=== PATIENT | male | born 2000 | race Caucasian/White ===

== ENCOUNTER 2020-04-04 04:11 | Emergency (ER) | payer BC, SELFPAY ==
--- NOTE | ~2020-04-04 | CT_ITS ---
EXAMINATION: CT abdomen pelvis w con DATE: 04/04/2020 05:47 INDICATION: Epigastric pain TECHNIQUE: Computed tomography (CT) of the abdomen and pelvis was performed with 100 cc Omnipaque 350 intravenous contrast. The dose-length product was 1392.58 mGy-cm. Automated exposure control and ite rative reconstruction technique were employed. COMPARISON: No prior studies for comparison. . FINDINGS: There is a subsolid 5 mm right lower lobe nodule, image 6. Heart size normal. No significan t pleural or pericardial effusion. Study limited by motion artifact. No significant vascular abnormal ity. No lymphadenopathy. Gallstones. No secondary findings to suggest cholecystitis. The liver, spleen, pancreas, adrenal glan ds and kidneys are unremarkable. Nonobstructive bowel gas pattern. Normal appendix. Nonobstructive jaleel wel gas pattern. Mild prominence of the transverse and descending colon, likely due to underdistentio n. No free air or free fluid. Small fat-containing umbilical hernia. No acute osseous abnormality. IMPRESSION: 1. Cholelithiasis. 2: Subsolid 5 mm right lower lobe nodule, likely benign. Follow-up CT chest and 12 months recommended . Reviewed, dictated and finalized at location A. OMS OFFICER IMPRESSION: 1. Cholelithiasis. 2: Subsolid 5 mm right lower lobe nodule, likely benign. Follow-up CT chest and 12 months recommended.
[2020-04-04 04:14] VITALS: BP 133/75; PULSE 87; RESP 20; TEMP 36.5; O2SAT 98
[2020-04-04] MEDS: SODIUM CHLORIDE 0.9% IV 1,000 ML 999 ML IV CONT (04:41)
[2020-04-04] MEDS: ONDANSETRON INJ 4 MG/2 ML VIAL IV PUSH (04:41)
[2020-04-04] MEDS: MORPHINE SULFATE (*CRX) 4 MG/ML INJ IV PUSH (04:41)
[2020-04-04 05:06] LABS: Basophils Absolute Auto 0.1 K/mm3 (0.0-0.1); Basophils Percent Auto 0.4 % (0.2-1.2); Eosinophils Absolute Auto 0.4 K/mm3 (0-0.3); Eosinophils Percent Auto 3.3 % (0-4.4); Hematocrit 43.1 % (42.0-52.0); Hemoglobin 13.8 g/dL (14.0-18.0); Immature Granulocyte Absolute 0.06 K/mm3 (0.00-0.031); Immature Granulocyte Percent A 0.5 % (0-0.5); Lymphocytes Absolute Auto 2.58 K/mm3 (0.9-3.2); Lymphocytes Percent Auto 19.4 % (18.3-44.2); Mean Corpuscular Hemoglobin 26.3 pg (26-34); Mean Corpuscular Volume 82.1 fl (80-100); Mean Platelet Volume 11.1 fl (7.4-10.4); Monocytes Absolute Auto 0.6 K/mm3 (0.1-0.6); Monocytes Percent Auto 4.7 % (2.6-8.5); Neutrophils Absolute Auto 9.5 K/mm3 (1.3-6.7); Neutrophils Percent Auto 71.7 % (45.5-73.1); Platelet Count Result 307 k/mm3 (150-375); Red Blood Count 5.25 M/mm3 (4.6-6.20); Red Cell Distribution Width 13.1 % (11.5-14.5); White Blood Count 13.3 K/mm3 (4.5-10.0)
[2020-04-04 05:13] LABS: Alanine Aminotransferase 32 U/L (4-50); Albumin Level 4.4 g/dL (3.5-5.1); Alkaline Phosphatase 73 U/L (38-126); Anion Gap 10 mmol/L (8-16); Aspartate Amino Transferase 31 U/L (17-59); Bilirubin,Total 0.5 mg/dL (0.2-1.3); Blood Urea Nitrogen 11 mg/dL (9-20); Calcium 9.2 mg/dL (8.4-10.2); Carbon Dioxide 33 mmol/L (22-30); Chloride 98 mmol/L (98-107); Estimated CRCL calculation 142 ml/min; Estimated Glomerular Filt Rate > 60; Glucose 149 mg/dL (75-110); Lipase 36 U/L (23-300); Potassium 3.6 mmol/L (3.4-5.0); Sodium 141 mmol/L (137-145)
--- NOTE | 2020-04-04 06:28 | ED.GENADULT ---
HPI - General Adult General Chief complaint: Back Pain/Injury Stated complaint: back pain Time Seen by Provider: 04/04/20 04:15 History of Present Illness HPI narrative: Patient is a 20-year-old male who presents ER with abdominal pain and back pain. Patient reports he developed some epigastric generalized upper abdominal pain that then became back pain late in the evening. Reports he had eaten some pizza earlier in the night. No nausea or vomiting or shortness of breath. No fevers or chills or sweats. No aggravating or alleviating factors that he is noted. Has not had similar pain in the past. Related Data Home Medications Medication Instructions Recorded Confirmed cetirizine 10 mg tablet 10 mg PO DAILY 10/31/19 10/31/19 Allergies Allergy/AdvReac Type Severity Reaction Status Date / Time cat dander Allergy Mild Unknown Verified 04/04/20 04:18 Review of Systems Review of Systems: All systems reviewed & are unremarkable except as noted in HPI and below Constitutional: Constitutional: Denies chills, Denies fever(s) and Denies weakness Respiratory: Respiratory: Denies cough and Denies dyspnea Gastrointestinal: Gastrointestinal: Reports abdominal pain, Denies diarrhea, Denies nausea and Denies vomiting Musculoskeletal: Musculoskeletal: Reports back pain and Denies muscle cramps PMFSH Past Medical History Medical History (Updated 04/04/20 @ 06:41 by Stefan Sanches MD) Acne History of asthma History of seizures Seasonal allergies Seizure Surgical History Surgical History (Updated 10/31/19 @ 11:42 by Misty Hagan MD) [place] teeth extracted Family History Family History Father ADHD Social History Social History Smoking status: Never smoker Second hand tobacco smoke exposure: No Alcohol intake: current Substance use: never Substance use type: does not use Gender identity (if verbalized by the patient): Male Exam Narrative: Exam Narrative: GENERAL: Well-appearing, well-nourished, and in no acute distress. HEAD: Normocephalic, atraumatic. ENT: Mucous membranes moist. CHEST: Clear to auscultation. No respiratory distress. HEART: Regular rate and rhythm. Normal peripheral pulses. ABDOMEN: Soft, moderate tenderness to the epigastrium and right upper quadrant, nondistended. EXTREMITIES: Normal range of motion. No edema. Back: No midline or paraspinal muscular tenderness in the T/L-spine. SKIN: Warm, dry, no rash. NEURO: Alert and oriented x3. Course Course Emergency Course: Pain improved but not totally resolved. Still mild tenderness in the right upper quadrant with guarding. Will discuss with general surgery. Reevaluation(s) Reevaluation #1: Discussed with general surgery. Discharge home with pain and nausea control as well as low-fat diet. Follow-up in clinic on 04/08/2020. Date: 04/04/20 Time: 06:40 Vital Signs Vital signs: Vital Signs Temperature 97.7 F 04/04/20 04:14 Pulse Rate 87 04/04/20 04:14 Respiratory Rate 04/04/20 04:14 Blood Pressure 133/75 04/04/20 04:14 Pulse Oximetry 98 04/04/20 04:14 Temperature 97.7 F 04/04/20 04:14 Pulse Rate 87 04/04/20 04:14 Respiratory Rate 04/04/20 04:14 Blood Pressure 133/75 04/04/20 04:14 Pulse Oximetry 98 04/04/20 04:14 Medical Decision Making Vital Signs Vital Signs: Vital Signs Temperature 97.7 F 04/04/20 04:14 Pulse Rate 87 04/04/20 04:14 Respiratory Rate 20 04/04/20 04:14 Blood Pressure 133/75 04/04/20 04:14 Pulse Oximetry 98 04/04/20 04:14 Temperature 97.7 F 04/04/20 04:14 Pulse Rate 87 04/04/20 04:14 Respiratory Rate 04/04/20 04:14 Blood Pressure 133/75 04/04/20 04:14 Pulse Oximetry 98 04/04/20 04:14 Lab Data Result diagrams: 04/04/20 04:42 04/04/20 04:42 Labs: Lab Results 04/04/20
== END 2020-04-04 06:54 | disposition home or self-care (01) ==
PROVIDERS: Emergency Provider Emergency Medicine; PCP Family Medicine
DX: K80.50 Calculus of bile duct without cholangitis or cholecystitis without obstruction (principal); J45.909 Unspecified asthma, uncomplicated
CPT/HCPCS: 36415; 74177; 80053; 83690; 85025; 96361; 96374; 96375; 99284; J2270; J2405; J7030; Q9967

== ENCOUNTER 2020-04-11 13:27 | Outpatient (CLI) | payer BC, SELFPAY ==
[2020-04-11 13:59] LABS: Alanine Aminotransferase 29 U/L (4-50); Albumin Level 4.4 g/dL (3.5-5.1); Alkaline Phosphatase 66 U/L (38-126); Amylase 39 U/L (30-110); Aspartate Amino Transferase 31 U/L (17-59); Bilirubin,Total 0.6 mg/dL (0.2-1.3); Lipase 32 U/L (23-300)
== END 2020-04-11 13:28 | disposition home or self-care (01) ==
LOC: ANHSURGERY 13:29
PROVIDERS: PCP Family Medicine; Visit Provider Surgery
DX: Z01.818 Encounter for other preprocedural examination (principal); K80.10 Calculus of gallbladder with chronic cholecystitis without obstruction
CPT/HCPCS: 36415; 80076; 82150; 83690; 86850; 86900; 86901

== ENCOUNTER 2020-04-13 01:09 | Outpatient (CLI) | payer BC, SELFPAY ==
[2020-04-13 18:47] LABS: SARS-CoV-2 RNA PCR Negative
== END 2020-04-13 01:10 | disposition home or self-care (01) ==
LOC: ANHCOVIDDT 01:09
PROVIDERS: PCP Family Medicine; Visit Provider Surgery
DX: Z01.812 Encounter for preprocedural laboratory examination (principal); Z20.822 Contact with and (suspected) exposure to COVID-19
CPT/HCPCS: C9803; U0003; U0005

== ENCOUNTER 2020-04-16 00:43 | Day surgery (SDC) | payer BC, SELFPAY ==
[2020-04-10 14:00] VITALS: BMI 40.7
--- NOTE | 2020-04-15 12:03 | P.PNAN_ITS ---
Anes - Initial Pre Proc Eval Procedure: Operation Date: 04/16/20 13:00 Proposed Procedures p Laparoscopic Cholecystectomy - Delbert Ferraro MD Date/Time: 04/15/20 12:03 Surgeon: Delbert Ferraro MD Pre Op Diagnosis: Chronic Cholecystitis With Stones Patient Data Age: 20 Gender: M Height: 1.6 m Weight: 104.33 kg Allergies Allergy/AdvReac Type Severity Reaction Status Date / Time cat dander Allergy Mild Sneezing/WH Verified 04/16/20 11:43 EEZING Home Medications Medication Instructions Recorded Confirmed Type cetirizine 10 mg tablet 10 mg PO DAILY 10/31/19 04/16/20 History hydrocodone-acetaminophen 1 tablet PO Q6H PRN #20 tablet 04/04/20 04/16/20 Rx ondansetron 4 mg PO Q6H PRN #10 tablet 04/04/20 04/16/20 Rx hydrocodone-acetaminophen 1 - 2 tablet PO Q6H PRN #7 tablet 04/16/20 Rx ketorolac 10 mg PO Q6H 4 Days #16 tablet 04/16/20 Rx Patient hx anesthesia problems: none Family hx anesthesia problems: none PMFSH Past Medical History Medical History (Updated 04/15/20 @ 12:04 by Rogelio Corea MD) Acne BMI 40.0-44.9, adult History of asthma History of seizures Seasonal allergies Seizure Surgical History Surgical History [place] teeth extracted Family History Family History Father ADHD Social History Social History Smoking status: Never smoker Second hand tobacco smoke exposure: No Alcohol intake: current Substance use: never Substance use type: does not use Living arrangements: with family Gender identity (if verbalized by the patient): Male Spiritual care concerns: No Anes - Eval Final PreProcedure Day of Procedure 04/15/20 12:03 Patient weight: morbidly obese Heart: regular rate and rhythm Lungs: clear to auscultation and normal air movement Airway: Mallampati scale class II Neurological: alert and oriented Last oral intake: >/= 8 hours ASA classification: III Emergent: no Anesthetic plan: proceed Anesthesia type and monitoring: general ETT Informed Consent: The patient's anesthetic plan and its attendant risks and benefits were discussed with the patient/family/POA. Questions were solicited and answers provided to the satisfaction of the patient/family/POA.
[2020-04-16] VITALS (8 sets, daily range): BP systolic 113–141; BP diastolic 60–91; PULSE 54–92; RESP 11–20; TEMP 36.2–37.1; O2SAT 98–100
--- NOTE | 2020-04-16 11:34 | P.OP_ITS ---
Procedure Note - Detailed Date of procedure: 04/16/20 Pre-op diagnosis: Chronic Cholecystitis With Stones Chronic cholecystitis, cholelithiasis Post-op diagnosis: same Procedure performed: Laparoscopic cholecystectomy Description of procedure: The patient was taken to surgery and induced into general anesthesia. The abdomen was prepped and draped. Trocars were placed in the usual fashion using 0.5% Marcaine with epinephrine and applied Medical optical trocars. A 5 millimeter camera was used. The gallbladder was decompressed with a laparoscopic aspirator. The gallbladder wall was very thickened consistent with chronic inflammation. There was at least 1 large gallstone in the gallbladder. The gallbladder was retracted anterosuperiorly. Adhesions to the gallbladder were taken down so that the cholecystohepatic triangle was exposed. Traction was placed on the infundibulum. The cystic duct and cystic artery were dissected out very clearly. The gallbladder was dissected off the liver at its lower 3rd. Critical view was achieved. We securely clipped and divided the cystic duct and cystic artery. The gallbladder was then further retracted so that the peritoneal attachments to the liver could be divided. The gallbladder had gangrenous change with thickened wall but very little signs of acute inflammation. Once the gallbladder was freed entirely, it was placed in an Endo-Catch bag and retrieved through the 10 11 epigastric trocar site. The epigastric trocar was then replaced. We reviewed the right upper quadrant. It was irrigated and suctioned. Some additional cautery was used on the gallbladder fossa to achieve good hemostasis. All looked good with no evidence of bleeding or bile leakage. We evacuated CO2 and removed the trocar sleeves. Skin wounds were closed with subcuticular 4 O Monocryl skin suture. The wounds were dressed with Exofin surgical adhesive. Patient was awakened and taken to recovery in good condition. Sponge and needle counts were correct x2. Anesthesia: GETA and local (0.5% Marcaine with epinephrine) Surgeon: Delbert Ferraro MD Landscape Crew Member: Priti DWYER Estimated blood loss (mL): 10 Drains: No Packing: No Pathology: yes (Gallbladder) Complications: None Condition: stable Disposition: PACU Findings: Chronic inflammation, gangrenous changes and a very thickened wall of the gallbladder, at least 1 large gallstone noted. No biliary ductal dilatation, no liver abnormalities.
--- NOTE | 2020-04-16 11:34 | WPDHPUPDATE1 ---
History and Physical Update Update Date/Time: 04/16/20 11:34 History and Physical has been reviewed, including an updated exam of the patient. There are NO changes in the patient's condition. Risks, benefits, and alternatives have been discussed and questions answered. Patient agrees to proceed with procedure.
[2020-04-16] MEDS: LACTATED RINGERS 1,000 ML 30 ML IV CONT ×2 (11:45→13:55)
[2020-04-16] MEDS: ACETAMINOPHEN 500 MG TABLET 1000 MG PO (11:46)
[2020-04-16] MEDS: KETOROLAC 15 MG/ML VIAL (*BKC) IV PUSH (11:50)
[2020-04-16] MEDS: ceFAZolin 2 GM/D5W 50 ML 2 GM/50 ML BAG IVPB (12:42)
[2020-04-16] MEDS: BUPIVACAINE/EPINEPHRINE 0.5% 10 ML VIAL 20 ML INFILTRATE (13:20)
[2020-04-16] MEDS: fentaNYL CITRATE INJ (*CRX) 100 MCG/2 ML VIAL 25 MCG IV PUSH ×2 (14:42→15:05)
[2020-04-16] MEDS: oxyCODONE HCL (*CRX) 5 MG TAB IR PO (15:55)
== END 2020-04-16 16:17 | disposition home or self-care (01) ==
PROVIDERS: PCP Family Medicine; Visit Provider Surgery
PROC: 0FT44ZZ Resection of Gallbladder, Percutaneous Endoscopic Approach (ICD-10-PCS; CPT 47562; principal; 2020-04-16 13:00)
DX: K80.10 Calculus of gallbladder with chronic cholecystitis without obstruction (principal); E66.01 Morbid (severe) obesity due to excess calories; Z68.41 Body mass index [BMI] 40.0-44.9, adult
CPT/HCPCS: 47562; 88304; A9270; C1713; J0690; J1100; J1885; J2250; J2405; J2704; J2710; J3010; J7120

== ENCOUNTER 2023-01-24 22:10 | Emergency (ER) | payer BC, SELFPAY ==
--- NOTE | ~2023-01-24 | CT_ITS ---
EXAMINATION: CT brain wo con DATE: 01/24/2023 23:32 INDICATION: Seizure. TECHNIQUE: Computed tomography (CT) of the head was performed without intravenous contrast. The mA wa s adjusted according to patient size. Iterative reconstruction technique was employed. The dose-lengt h product was 681.00 mGy-cm. COMPARISON: Head CT 11/22/2015 FINDINGS: There is no intracranial hemorrhage, acute infarction, or abnormal intracranial mass lesion . The ventricles are normal in size. There is mild mucosal thickening in the paranasal sinuses. The o rbits are normal. The mastoid air cells are normal. There is right frontal scalp soft tissue swelling . IMPRESSION: 1. Normal brain. Reviewed, dictated and finalized at location E. IMPRESSION: 1. Normal brain.
[2023-01-24 22:12] VITALS: BP 153/93; PULSE 109; RESP 20; TEMP 37.4; O2SAT 94
--- NOTE | 2023-01-24 22:17 | ED.SEIZURE ---
HPI - Seizure General Chief Complaint: Seizure Stated Complaint: seizure Time Seen by Provider: 01/24/23 22:14 History of Present Illness HPI Narrative: Patient brought to the emergency department by EMS after a seizure. Patient states he he had seizures and was on seizure medication up till 5 years ago. That his last time that he had any seizure activity. Denies alcohol excessive intake with abrupt cessation. Per EMS the patient was postictal upon their arrival. He is currently feeling a little drowsy but he has not received any medication per EMS. Patient denies any injuries although he has a small abrasion on his forehead. Seizure History: Yes (last 5+years ago NO MEDS) Related Data Home Medications Medication Instructions Recorded Confirmed cetirizine 10 mg tablet 10 mg PO DAILY 10/31/19 11/06/22 Allergies Allergy/AdvReac Type Severity Reaction Status Date / Time cat dander Allergy Mild Sneezing/WH Verified 11/06/22 13:10 EEZING Review of Systems Review of Systems: Review of systems negative except what is documented in the HPI PMFSH Past Medical History Medical History Acne BMI 40.0-44.9, adult History of asthma History of seizures Seasonal allergies Seizure Surgical History Surgical History Hx laparoscopic cholecystectomy 04/16/20 [place] teeth extracted Family History Family History Father ADHD Mother ADHD Social History Social History Smoking status: Never smoker Second hand tobacco smoke exposure: No Alcohol intake: current Alcohol use details: consumes 5-6 shots of vodka rarely Substance use: never Substance use type: does not use Lack of Transportation: No Lack of Food: Never True Current Housing: I Have Housing Concerned About Future Housing: No Difficulty Paying Gas/Electric Bills: No Difficulty Paying for Meds: No Currently Unemployed: YES Education: High School Diploma/GED Difficulty w/ Childcare or Family Care: No Living arrangements: with family Gender identity (if verbalized by the patient): Male Spiritual care concerns: No Exam Narrative: GENERAL: Well-appearing, well-nourished, and in no acute distress. HEAD: Normocephalic, abrasion to forehead EYES: PERRLA and EOMI. ENT: Nares clear, no rhinorrhea or epistaxis. Mucous membranes moist. NECK: Supple. CHEST: Clear to auscultation. No respiratory distress. HEART: Regular rate and rhythm. ABDOMEN: Soft, nontender, nondistended. EXTREMITIES: Normal range of motion. No edema. SKIN: Warm, dry, no rash. NEURO: No focal deficits. Alert and oriented x3. PSYCH: Normal mood and affect. Course Course Emergency Course: Telemetry ordered due to seizure activity to evaluate for dysrhythmias. Evaluated by myself. Rhythm sinus Rate normal Differential diagnosis includes but not limited to epileptic seizures, nonepileptic seizures, alcohol withdrawal Head CT ordered due to new onset seizure after prolonged period of time and small forehead abrasion as well as labs Vital Signs Vital signs: Vital Signs Temperature 37.4 C 01/24/23 22:12 Pulse Rate 109 H 01/24/23 22:12 Respiratory Rate 20 01/24/23 22:12 Blood Pressure 153/93 H 01/24/23 22:12 Pulse Oximetry 94 01/24/23 22:12 Oxygen Delivery Room Air 01/24/23 22:12 Temperature 37.4 C 01/24/23 22:12 Pulse Rate 95 01/25/23 01:38 Respiratory Rate 16 01/25/23 01:38 Blood Pressure 114/78 01/25/23 01:38 Pulse Oximetry 97 01/25/23 01:38 Oxygen Delivery Room Air 01/24/23 22:12 MDM - Seizure MDM Narrative Medical decision making narrative: Labs ordered and reviewed. Grossly unremarkable. CT head pending. Patient has been stable without additional seizure activity.
[2023-01-24 22:44] LABS: Basophils Percent Auto 0.3 % (0.2-1.2); Eosinophils Absolute Auto 0.3 K/mm3 (0-0.3); Eosinophils Percent Auto 3.3 % (0-4.4); Hematocrit 44.9 % (42.0-52.0); Hemoglobin 14.1 g/dL (14.0-18.0); Immature Granulocyte Absolute 0.06 K/mm3 (0.00-0.031); Immature Granulocyte Percent A 0.6 % (0-0.5); Lymphocytes Absolute Auto 2.52 K/mm3 (0.9-3.2); Lymphocytes Percent Auto 24.4 % (18.3-44.2); Mean Corpuscular HGB Conc 31.4 g/dl (32-36); Mean Corpuscular Hemoglobin 26.5 pg (26-34); Mean Corpuscular Volume 84.2 fl (80-100); Mean Platelet Volume 10.7 fl (7.4-10.4); Monocytes Absolute Auto 0.5 K/mm3 (0.1-0.6); Monocytes Percent Auto 4.5 % (2.6-8.5); Neutrophils Absolute Auto 6.9 K/mm3 (1.3-6.7); Neutrophils Percent Auto 66.9 % (45.5-73.1); Platelet Count Result 302 k/mm3 (150-375); Red Blood Count 5.33 M/mm3 (4.6-6.20); Red Cell Distribution Width 13.5 % (11.5-14.5); White Blood Count 10.3 K/mm3 (4.5-10.0)
[2023-01-24] MEDS: levETIRAcetam 1000MG/NACL100ML 1,000 MG/100 ML BAG 400 MG IVPB (22:54)
[2023-01-24 22:57] LABS: Ethanol < 10 mg/dL (<10)
[2023-01-24 23:10] VITALS: BP 128/78; PULSE 108; RESP 21; O2SAT 96
[2023-01-24 23:17] LABS: Alanine Aminotransferase 52 U/L (6-50); Albumin Level 4.3 g/dL (3.5-5.1); Alkaline Phosphatase 55 U/L (38-126); Anion Gap 8 mmol/L (8-16); Aspartate Amino Transferase 47 U/L (17-59); Bilirubin,Total 0.7 mg/dL (0.2-1.3); Blood Urea Nitrogen 11 mg/dL (9-20); Calcium 8.6 mg/dL (8.4-10.2); Carbon Dioxide 29 mmol/L (22-30); Chloride 100 mmol/L (98-107); Estimated CRCL calculation 180 ml/min; Estimated Glomerular Filt Rate > 60; Glucose 107 mg/dL (65-110); Potassium 4.4 mmol/L (3.4-5.0); Sodium 137 mmol/L (137-145)
[2023-01-24 23:48] LABS: Amphetamine Screen Urine Negative (Negative); Barbiturate Screen Urine Negative (Negative); Benzodiazepines Screen Urine Negative (Negative); Cannabinoid Screen Urine Negative (Negative); Cocaine Screen Urine Negative (Negative); Methadone Screen Urine Negative (Negative); Opiate Screen Urine Negative (Negative); Phencyclidine Screen Urine Negative (Negative)
[2023-01-25 00:33] VITALS: BP 116/75; PULSE 94; RESP 18; O2SAT 98
[2023-01-25] MEDS: ACETAMINOPHEN 325 MG TABLET 650 MG PO (00:43)
[2023-01-25 01:38] VITALS: BP 114/78; PULSE 95; RESP 16; O2SAT 97
[2023-01-25 02:44] VITALS: BP 118/86; PULSE 98; RESP 18; O2SAT 95
== END 2023-01-25 02:55 | disposition home or self-care (01) ==
PROVIDERS: Emergency Provider Emergency Medicine; PCP Physician Assistant
DX: R56.9 Unspecified convulsions (principal)
CPT/HCPCS: 36415; 70450; 80053; 80307; 85025; 96365; 99284; A9270; J1953

== ENCOUNTER 2023-02-24 00:47 | Inpatient (IN) | payer BC, SELFPAY ==
[2023-02-24] VITALS (46 sets, daily range): BP systolic 102–148; BP diastolic 56–110; PULSE 102–133; RESP 17–36; TEMP 36.6–38.3; O2SAT 85–97; BMI 47.7
--- NOTE | ~2023-02-24 | XR_ITS ---
XR chest 1V portable INDICATION: Aspiration pneumonia TECHNIQUE: 2 view chest. FINDINGS: 02/24/2023 There is mild bilateral interstitial prominence and peribronchial cuffing. There is no focal consoli dation, pleural effusion, or pneumothorax. The cardiomediastinal silhouette is normal. IMPRESSION: 1. Findings most consistent with bronchiolitis versus an atypical or viral pneumonia. Reviewed, dictated and finalized at location B. ET LIGHT LAMP CLEANER IMPRESSION: 1. Findings most consistent with bronchiolitis versus an atypical or viral pne [facility].
--- NOTE | ~2023-02-24 | XR_ITS ---
Portable chest x-ray Comparison: None Clinical History: Dyspnea Findings: Lungs are clear, without focal consolidation or pleural effusion. Cardiomediastinal silho uette is unremarkable. Bones and soft tissues are unremarkable. Impression: Clear lungs. Reviewed, dictated and finalized at location M. OF DIGITAL Impression: Clear lungs.
--- NOTE | ~2023-02-24 | CT_ITS ---
Non-contrast Head CT History: Seizure, facial trauma COMPARISON: 01/24/2023 Technique: Axial non-contrast imaging of the brain was performed. Dose reduction technique was used on this scan by utilizing automated exposure control and iterative reconstruction technique. The dose -length product (DLP) was 605.33 mGy-cm. Findings: There is no evidence of intracranial hemorrhage, mass lesion, or acute infarct. Brain par enchyma appears normal. The ventricles and subarachnoid spaces are normal in size. The calvarium ap pears normal. The visualized paranasal sinuses and mastoid air cells are clear. Impression: No significant abnormality seen. Reviewed, dictated and finalized at location . ERCIAL RETOUCHER Impression: No significant abnormality seen.
--- NOTE | ~2023-02-24 | CT_ITS ---
CT Facial Bones and Cervical Spine Clinical Indication: Seizure, facial trauma Technique: Contiguous axial scans were obtained through the facial bones and cervical spine followed by coronal and sagittal reconstructions. Dose reduction technique was used on this scan by utilizing automated exposure control and iterative reconstruction technique. The dose-length product (DLP) was 677.62 mGy-cm. Findings: CT facial bones: No fractures are identified. The visualized paranasal sinuses are clear. Intraorbita l soft tissues appear normal. CT cervical spine: No fractures or subluxation. There is mild reversal of the normal cervical lordos is. Osseous structures are otherwise unremarkable. The intervertebral disc spaces are preserved. No prevertebral soft tissue swelling. There are innumerable groundglass centrilobular nodules in the rig ht upper lobe with several more, areas of mild groundglass opacity. Impression: No fracture is seen in the facial bones. No fracture or subluxation of the cervical spine. Groundglass opacities and numerous groundglass nodules in the right upper lobe, most compatible with pneumonia/infectious process. Reviewed, dictated and finalized at [facility]. NING DESIGN SPECIALIST Impression: No fracture is seen in the facial bones. No fracture or subluxation of the cervical spine. Groundglass opacities and numerous groundglass nodules in the right upper lobe, most compatible with pneumonia/infectious process.
--- NOTE | ~2023-02-24 | MR_ITS ---
EXAMINATION: MR brain/brain stem wo/w con DATE: 02/26/2023 09:58 INDICATION: Seizures. TECHNIQUE: Magnetic resonance imaging (MRI) of the brain and brainstem was performed without and with 20 mL MultiHance intravenous contrast. COMPARISON: Head CT 02/24/2023 FINDINGS: There is no intracranial hemorrhage, acute infarction, or abnormal intracranial mass lesion . The hippocampi are normal and symmetric. The ventricles are normal in size. There is mild mucosal t hickening in the paranasal sinuses. The orbits are normal. The mastoid air cells are normal. IMPRESSION: 1. Normal brain. Reviewed, dictated and finalized at location A. BOX INSPECTOR IMPRESSION: 1. Normal brain.
--- NOTE | 2023-02-24 01:11 | ECG_ITS ---
Measurements Intervals [place] Rate: 119 P: 53 KS: 148 QRS: 47 QRSD: 94 T: 57 QT: 432 QTc: 610 Interpretive Statements SINUS TACHYCARDIA NONSPECIFIC T-WAVE ABNORMALITY- ANTEROLAT/INF LEADS BASELINE ARTIFACT- II, III, AVF ABNORMAL ECG NO PREVIOUS ECG AVAILABLE FOR COMPARISON Electronically Signed On 02-24-2023 6:25:20 [employer]VANCED [employer]ACTICE PROFESSIONAL by Vasile Finch D.O.
--- NOTE | 2023-02-24 01:35 | PC.NURSE ---
Pt had tonic clonic sz lasting approx 1 min. Remains post-ictal, but responsive to verbal.
[2023-02-24] MEDS: IPRATROPIUM BR 0.02% INH SOLN 0.5 MG/2.5 ML VIAL INHALATION (01:45)
[2023-02-24] MEDS: ALBUTEROL SULFATE NEB 2.5 MG/3 ML INH INHALATION ×3 (01:45→19:50)
[2023-02-24] MEDS: ONDANSETRON INJ 4 MG/2 ML VIAL IV PUSH (01:49)
[2023-02-24] MEDS: LORazepam INJ (*CRX) 2 MG/ML VIAL 1 MG IV PUSH (01:49)
[2023-02-24] MEDS: SODIUM CHLORIDE 0.9% IV 1,000 ML 999 ML IV CONT ×4 (01:49→12:30)
--- NOTE | 2023-02-24 02:14 | PC.NURSE ---
Pt to CT on monitor
[2023-02-24 02:18] LABS: Basophils Percent Auto 0.2 % (0.2-1.2); Eosinophils Absolute Auto 0.3 K/mm3 (0-0.3); Hematocrit 44.7 % (42.0-52.0); Hemoglobin 13.7 g/dL (14.0-18.0); Immature Granulocyte Absolute 0.05 K/mm3 (0.00-0.031); Immature Granulocyte Percent A 0.4 % (0-0.5); Lymphocytes Absolute Auto 1.49 K/mm3 (0.9-3.2); Mean Corpuscular HGB Conc 30.6 g/dl (32-36); Mean Corpuscular Hemoglobin 25.7 pg (26-34); Mean Corpuscular Volume 83.7 fl (80-100); Mean Platelet Volume 11.1 fl (7.4-10.4); Monocytes Absolute Auto 0.6 K/mm3 (0.1-0.6); Monocytes Percent Auto 4.4 % (2.6-8.5); Platelet Count Result 283 k/mm3 (150-375); Red Blood Count 5.34 M/mm3 (4.6-6.20); Red Cell Distribution Width 13.8 % (11.5-14.5); White Blood Count 12.4 K/mm3 (4.5-10.0)
[2023-02-24] MEDS: levETIRAcetam 500MG/NACL 100ML 500 MG/100 ML BAG 400 MG IVPB ×2 (02:33→13:57)
[2023-02-24 02:35] LABS: Alanine Aminotransferase 40 U/L (6-50); Albumin Level 4.3 g/dL (3.5-5.1); Alkaline Phosphatase 76 U/L (38-126); Anion Gap 12 mmol/L (8-16); Aspartate Amino Transferase 28 U/L (17-59); Bilirubin,Total 0.4 mg/dL (0.2-1.3); Blood Urea Nitrogen 8 mg/dL (9-20); Calcium 8.9 mg/dL (8.4-10.2); Carbon Dioxide 28 mmol/L (22-30); Chloride 101 mmol/L (98-107); Estimated CRCL calculation 179 ml/min; Estimated Glomerular Filt Rate > 60; Glucose 113 mg/dL (65-110); Potassium 3.4 mmol/L (3.4-5.0); Sodium 141 mmol/L (137-145)
[2023-02-24 02:37] LABS: INR 0.9; Prothrombin Time 12.4 Seconds (11.1-14.7)
[2023-02-24 02:38] LABS: Lactic Acid Reflex 8.1 mmol/L (0.7-2.0)
[2023-02-24 02:47] LABS: Partial Thromboplastin Time < 20.0 SECONDS (22.3-36.8)
[2023-02-24 02:55] LABS: Troponin I < 0.012 ng/mL (0.000-0.034)
[2023-02-24 02:56] LABS: Influenza A QL RT-PCR Negative (Negative); Influenza B QL RT-PCR Negative (Negative); RSV RNA, RT-PCR Negative (Negative); SARS-CoV-2 RNA PCR Negative (Negative)
--- NOTE | 2023-02-24 03:37 | ED.GENADULT ---
HPI - General Adult General Chief complaint: Seizure Stated complaint: seizures Time Seen by Provider: 02/24/23 01:26 History of Present Illness HPI narrative: Patient went for angina presents emergency department chief complaint of seizure. Per the patient is seen the patient had 2 generalized tonic-clonic seizures at home patient does have prior history of seizure disorder that was off medicines for some hand and several months ago had a recurrent seizure started on Keppra and then dose was increased by Neurology in the office. The patient has seen Dr. Jose Juan alonso patient had an episode of emesis between seizures in the family believes he may have aspirated. Patient was having oxygenation the 80s whenever he 1st arrived in the emergency department and did have crackles present the patient did have a witnessed generalized tonic-clonic seizure in the emergency department. Related Data Home Medications Medication Instructions Recorded Confirmed cetirizine 10 mg tablet 10 mg PO DAILY 10/31/19 02/03/23 Allergies Allergy/AdvReac Type Severity Reaction Status Date / Time cat dander Allergy Mild Sneezing/WH Verified 02/03/23 14:56 EEZING Review of Systems Review of Systems: A 10 system review of systems was completed on the patient and is negative except for what is stated in the HPI. Nursing and ancillary documentation was reviewed. [facility] Past Medical History Medical History Acne BMI 40.0-44.9, adult History of asthma History of seizures Seasonal allergies Seizure Surgical History Surgical History Hx laparoscopic cholecystectomy 04/16/20 [place] teeth extracted Family History Family History Father ADHD Mother ADHD Social History Social History Smoking status: Never smoker Second hand tobacco smoke exposure: No Alcohol intake: current Alcohol use details: consumes 5-6 shots of vodka rarely Substance use: never Substance use type: does not use Lack of Transportation: No Lack of Food: Never True Current Housing: I Have Housing Concerned About Future Housing: No Difficulty Paying Gas/Electric Bills: No Difficulty Paying for Meds: No Currently Unemployed: YES Education: High School Diploma/GED Difficulty w/ Childcare or Family Care: No Living arrangements: with family Gender identity (if verbalized by the patient): Male Spiritual care concerns: No Exam Narrative: GENERAL: Well-appearing, well-nourished, and in no acute distress. HEAD: Normocephalic, abrasion present to the left forehead. EYES: PERRLA and EOMI. ENT: Nares clear, no rhinorrhea or epistaxis. Mucous membranes moist. NECK: Supple. CHEST: Clear to auscultation. No respiratory distress. HEART: Regular rate and rhythm. No murmur heard. Normal peripheral pulses. ABDOMEN: Soft, nontender, nondistended, normal active bowel sounds. EXTREMITIES: Normal range of motion. No edema. SKIN: Warm, dry, no rash. NEURO: No focal deficits. Alert and oriented x3. PSYCH: Normal mood and affect. Course Vital Signs Vital signs: Vital Signs Temperature 36.8 C 02/24/23 00:56 Pulse Rate 122 H 02/24/23 00:56 Respiratory Rate 20 02/24/23 00:56 Blood Pressure 148/70 H 02/24/23 00:56 Pulse Oximetry 86 L 02/24/23 00:56 Oxygen Delivery Room Air 02/24/23 00:56 Temperature 36.8 C 02/24/23 00:56 Pulse Rate 104 H 02/24/23 03:25 Respiratory Rate 25 H 02/24/23 03:25 Blood Pressure 121/74 02/24/23 03:25 Pulse Oximetry 94 02/24/23 03:25 Oxygen Delivery Nasal Cannula 02/24/23 01:07 Oxygen Flow Rate 2 02/24/23 01:07 Medical Decision Making MDM Narrative Medical decision making narrative: Differential diagnosis
--- NOTE | 2023-02-24 03:44 | PC.NURSE ---
Report to RYLAND Barfield
--- NOTE | 2023-02-24 04:19 | PC.NURSE ---
Pt did not tolerate room air. Dropped to 85%. Placed back on 2L, satting 94%. Initial bag of IVF still infusing d/t 22g IV in inner wrist.
[2023-02-24 04:35] LABS: Lactic Acid Reflex 2.2 mmol/L (0.7-2.0)
[2023-02-24 04:46] LABS: Troponin I < 0.012 ng/mL (0.000-0.034)
[2023-02-24 05:15] LABS: Reflex Lactic Acid Yes or No Add Lactic
--- NOTE | 2023-02-24 05:24 | PC.NURSE ---
Report to June, RN
--- NOTE | 2023-02-24 06:01 | ADMGEN ---
This patient, Prince Finn II, was admitted to Medical Room 248-. Patient/family oriented to hospital policies and general routines including ID bracelet, bed and alarms, visiting hours, pain management, procedures, bathroom and other care routines, personal items, smoking policy, room service/diet, and visiting hours. Information on how to activate the Rapid Response Team has been discussed. Patient/Family are encouraged to report perceived risks to care and to ask questions if they do not understand what they are told or what they should do.
--- NOTE | 2023-02-24 07:27 | PM.IMHP ---
H&P: HPI History of Present Illness Date/Time: 02/24/23 07:27 Chief Complaint: seizure Narrative: This is a 22 year old male with a PMH of asthma, depression, anxiety, and known seizure disorder who presented to [facility] ED on 02/24 for two witnessed, presumed tonic colonic seizures. The patient states that he was at home with his family when he suffered 2 tonic-clonic seizures with emesis in between seizures. He did fall and hit his head and suffered an abrasion to the left side of his face. His last seizure was about a month ago for which he was seen and treated in the ED and discharged with neurology follow-up. He saw Dr. Manzano on 02/03 for which she increased his Keppra from 500 to a 1000 mg b.i.d. and he was given p.r.n. intranasal Valium. Prior to that he had not had seizures for the last 5 years. He was initially diagnosed with a seizure disorder at age 4 and had followed with a neurologist at [facility]. He had been on oral Topamax previously. In the ED labs were significant for leukocytosis of 12.4, neutrophils 81, lactic 8.1, and negative respiratory viral panel. His head CT was normal as well as CT facial bones and cervical spine which showed no acute fracture or subluxation of cervical spine. The CT did show ground-glass opacities and numerous ground-glass nodules in the right upper lobe. In the ER he received 2 L of normal saline and repeat lactic was 2.2, he was loaded with 500 mg of IV Keppra, received 1 mg of Ativan, 4 mg of Zofran, and albuterol/Atrovent neb x1. This morning I was contacted at 9:42 a.m. by the bedside nurse with concerns for tachycardia in the 170s, low-grade fever of 100.9. Upon arrival to the bedside patient is complaining of shortness of breath and appears altered and drowsy. He admits he is having difficulty finding words. He complains of feeling short of breath but denies chest pain. He is still on 2 L nasal cannula. Patient may have had an unwitnessed seizure. He is receiving 1 L saline bolus now has been started on Rocephin and Flagyl for right upper lobe aspiration pneumonia. He will be given Tylenol for his fever. Lungs are coarse to the right upper lobe and he has expiratory wheezes throughout posterior upper and lower lobes. Will and had scheduled you for albuterol nebulizers. Repeat lactate is 4.3. Will give an additional 1 L saline bolus. He is receiving his oral Keppra 1000 mg now. Review of Systems Review of Systems: drowsy and cloudy mentation All systems reviewed & are unremarkable except as noted in HPI and below ROS unobtainable: Yes unobtainable due to medical condition PMFSH Past Medical History Medical History Acne Anxiety BMI 40.0-44.9, adult Depression History of asthma History of seizures Seasonal allergies Seizure Surgical History Surgical History Hx laparoscopic cholecystectomy 04/16/20 [place] teeth extracted Family History Family History Father ADHD Mother ADHD Social History Social History Smoking status: Never smoker Second hand tobacco smoke exposure: No Alcohol intake: never Alcohol use details: consumes 5-6 shots of vodka rarely Substance use: never Substance use type: does not use Lack of Transportation: No Lack of Food: Never True Current Housing: I Have Housing Concerned About Future Housing: No Difficulty Paying Gas/Electric Bills: No Difficulty Paying for Meds: No Currently Unemployed: YES Education: High School Diploma/GED Difficulty w/ Childcare or Family Care: No Living arrangements: with family Gender identity (if verbalized by the patient): Male Spiritual care concerns: No Comments currently unemployed. Lives with his mom, dad, and brother. His dad, Irvin Clement
[2023-02-24] MEDS: ACETAMINOPHEN 325 MG TABLET 650 MG PO (09:52)
[2023-02-24] MEDS: levETIRAcetam 500 MG TABLET 1000 MG PO (09:52)
[2023-02-24] MEDS: metroNIDAZOLE 500 MG/ISO 100ML 500 MG/100 ML BAG 100 MG IVPB ×4 (09:56→23:26)
[2023-02-24 10:48] LABS: Lactic Acid Reflex 4.3 mmol/L (0.7-2.0)
--- NOTE | 2023-02-24 12:49 | WPDNEURCNPN ---
Assessment and Plan Assessment and plan (1) Seizure: Code(s): R56.9 - Unspecified convulsions Status: Acute Plan Seizure disorder for which patient had followed with Dr. Manzano and had been on Keppra 500mg p.o. b.i.d. which was subsequently increased [id number] b.i.d. he was loaded in the in emergency room and started back on his oral therapeutic dosage of 1000 b.i.d. also EEG was ordered 8minutes at present will be continued as such Consult date: 02/24/23 HPI: Prince Finn II is a 22 year old male admitted to the hospital through the emergency room for the complaints of seizure. Reportedly patient had 2 generalized tonic-clonic seizures at the patient's home though he does have previous history of seizure disorder but unfortunately has been off the medication for some time patient was started on Keppra which was subsequently increased by the neurologist in the office seen by Dr. Manzano locally and had the seizure this time which was witnessed as generalized tonic-clonic seizures in the emergency room department as well patient has been taking cetirizine 10mg daily he has history of bronchial asthma and seizure disorder has undergone laparoscopic cholecystectomy consumes 5 to 6 shots of vodka fairly never substance user and never smoker , initial vital signs were normal except the pulse rate of 122 chest x-ray was negative CT scan of the head and cervical spine and facial bones were negative for the fracture bleed routine lab studies were normal screening for the influenza A, B ,RSV, and COVID were negative . Review of Systems Review of Systems: All systems reviewed & are unremarkable except as noted in HPI and below PMFSH Past Medical History Medical History Acne Anxiety BMI 40.0-44.9, adult Depression History of asthma History of seizures Seasonal allergies Seizure Surgical History Surgical History Hx laparoscopic cholecystectomy 04/16/20 [place] teeth extracted Family History Family History Father ADHD Mother ADHD Social History Social History Smoking status: Never smoker Second hand tobacco smoke exposure: No Alcohol intake: never Alcohol use details: consumes 5-6 shots of vodka rarely Substance use: never Substance use type: does not use Lack of Transportation: No Lack of Food: Never True Current Housing: I Have Housing Concerned About Future Housing: No Difficulty Paying Gas/Electric Bills: No Difficulty Paying for Meds: No Currently Unemployed: YES Education: High School Diploma/GED Difficulty w/ Childcare or Family Care: No Living arrangements: with family Gender identity (if verbalized by the patient): Male Spiritual care concerns: No Meds Home Medications and Allergies Home Medications Medication Instructions Recorded Confirmed Type cetirizine 10 mg tablet 10 mg PO QHS 10/31/19 02/24/23 History diazepam 20 mg/2 spray (10 mg/0.1 20 mg (0.2 mL) intranasal ONCE PRN 02/03/23 02/24/23 Rx mL x 2) nasal spray (Valtoco) seizure > 5 minutes #2 sprays levetiracetam 1,000 mg tablet 1,000 mg PO Q12H #60 tabs 02/03/23 02/24/23 Rx (Keppra) sertraline 100 mg tablet 100 mg PO QHS 02/24/23 02/24/23 History Allergies Allergy/AdvReac Type Severity Reaction Status Date / Time cat dander Allergy Mild Sneezing/WH Verified 02/03/23 14:56 EEZING Vital Signs Vital Signs - 24 hr 02/24/23 00:56 02/24/23 01:07 02/24/23 01:10 Temperature 36.8 C Pulse Rate 122 H 121 H Respiratory Rate 20 Blood Pressure 148/70 H Pulse Oximetry 86 L 93 Oxygen Delivery Room Air Nasal Cannula Oxygen Flow Rate 2 02/24/23 01:47 02/24/23 01:57 02/24/23 01:05 Temperature Pulse Rate 117 H 133 H 124 H Respiratory Rate 30 H 23 H 31 H Bloo
[2023-02-24] MEDS: methylPREDNISolone SOD SUCC 125 MG VIAL 60 MG IV PUSH ×3 (13:54→23:26)
[2023-02-24 15:20] LABS: Lactic Acid Reflex 1.8 mmol/L (0.7-2.0)
[2023-02-24 15:49] LABS: Alveolar/Arterial O2 Gradient 68.9 mmHg; Fractional Inspired Oxygen 28 %; HCO3 ABG 23.4 mEq/l (22.0-26.0); Oxygen Content ABG 18.2 %vol (16.0-22.0); Oxygen Saturation ABG 95.5 % (95.0-100.0); Oxyhemoglobin 94.4 % THb (90.0-100.0); PCO2 ABG 42.4 mmHg (35.0-45.0); PO2 ABG 80.7 mmHg (80.0-100.0); PO2 FiO2 Ratio Arterial Blood 2.88 %; Total Hemoglobin 13.7 g/dL (12.0-18.0)
[2023-02-24 15:51] LABS: Device NASAL CANNULA; Modified Allen's Test Pass; Site Drawn LEFT RADIAL
[2023-02-24] MEDS: LORazepam INJ (*CRX) 2 MG/ML VIAL IV PUSH (18:53)
[2023-02-24] MEDS: levETIRAcetam 500 MG TABLET 1500 MG PO (21:48)
[2023-02-24] MEDS: LORATADINE 10 MG TABLET PO (21:49)
[2023-02-24] MEDS: SERTRALINE HCL 50 MG TABLET 100 MG PO (21:49)
[2023-02-25] VITALS (14 sets, daily range): BP systolic 129–155; BP diastolic 51–79; PULSE 75–114; RESP 18–20; TEMP 36.6–36.8; O2SAT 93–100
[2023-02-25 05:34] LABS: Basophils Percent Auto 0.1 % (0.2-1.2); Hematocrit 40.4 % (42.0-52.0); Hemoglobin 12.2 g/dL (14.0-18.0); Immature Granulocyte Absolute 0.07 K/mm3 (0.00-0.031); Immature Granulocyte Percent A 0.6 % (0-0.5); Lymphocytes Absolute Auto 0.83 K/mm3 (0.9-3.2); Lymphocytes Percent Auto 6.7 % (18.3-44.2); Mean Corpuscular HGB Conc 30.2 g/dl (32-36); Mean Corpuscular Hemoglobin 25.7 pg (26-34); Mean Corpuscular Volume 85.2 fl (80-100); Mean Platelet Volume 10.7 fl (7.4-10.4); Monocytes Absolute Auto 0.3 K/mm3 (0.1-0.6); Monocytes Percent Auto 2.5 % (2.6-8.5); Neutrophils Absolute Auto 11.1 K/mm3 (1.3-6.7); Neutrophils Percent Auto 90.1 % (45.5-73.1); Platelet Count Result 248 k/mm3 (150-375); Red Blood Count 4.74 M/mm3 (4.6-6.20); Red Cell Distribution Width 14.2 % (11.5-14.5); White Blood Count 12.4 K/mm3 (4.5-10.0)
[2023-02-25] MEDS: metroNIDAZOLE 500 MG/ISO 100ML 500 MG/100 ML BAG 100 MG IVPB ×4 (05:34→23:32)
[2023-02-25] MEDS: methylPREDNISolone SOD SUCC 125 MG VIAL 60 MG IV PUSH ×2 (05:35→11:52)
[2023-02-25 05:50] LABS: Alanine Aminotransferase 35 U/L (6-50); Albumin Level 3.8 g/dL (3.5-5.1); Alkaline Phosphatase 72 U/L (38-126); Anion Gap 9 mmol/L (8-16); Aspartate Amino Transferase 24 U/L (17-59); Bilirubin,Total 0.5 mg/dL (0.2-1.3); Blood Urea Nitrogen 5 mg/dL (9-20); Calcium 8.6 mg/dL (8.4-10.2); Carbon Dioxide 25 mmol/L (22-30); Chloride 107 mmol/L (98-107); Estimated CRCL calculation 182 ml/min; Estimated Glomerular Filt Rate > 60; Glucose 154 mg/dL (65-110); Potassium 4.5 mmol/L (3.4-5.0); Sodium 141 mmol/L (137-145)
--- NOTE | 2023-02-25 07:22 | PM.IMPN ---
Progress Note: A&P Assessment and Plan (1) Acute hypoxic respiratory failure: Code(s): J96.01 - Acute respiratory failure with hypoxia Status: Acute Assessment and Plan: Acute oxygen desaturations of 85-86% in the ED requiring oxygen to keep pulse ox > 92%. Currently on 2 L NC Received albuterol and ipratropium nebs in the ED. WBC 12.4 Lactic 8.8 on admission (2 L NS in the ED)--lactic 2.2. Repeat lactic this morning 4.6 (receiving another 2 L NS). Imaging from CT head/cervical/facial shows ground glass opacities and nodules in the right upper lobe. Patient had emesis in between seizures and witnessed aspiration. Started on Rocephin and Flagyl for ASA pneumonia Scheduled albuterol nebs q 4 hours. 02/24: Appears unwell today. He has a low grade fever, 100.9 and is SOB with coarse RUL lung sounds. Starting on IV antibiotics for ASA PNA, fluid bolus for sepsis, blood cultures pending. 02/25:Lactic has cleared, 1.8. WBC remains stable at 12.4, now on steroids. Wheezing is resolved, will stop steroids. Plan to de-escalate antibiotics tomorrow. (2) History of seizures: Code(s): Z87.898 - Personal history of other specified conditions Status: Acute Assessment and Plan: Witnessed tonic clonic seizures Follows with Dr Manzano. Initially was on Keppra 500 mg PO BID and then dose was increased to 1000 mg BID on 02/03/2023. Also given Valtoco 20 mg nasal spray as needed. Was loaded with Keppra 500 mg IVP in the ED. Restarting Keppra 1000 mg PO BID now. Keppra level ordered and pending UDS ordered Neurology has been consulted and recommendations are appreciated. Ativan 2 mg IVP PRN for active seizure, seizure precautions. EEG ordered for today 02/24: May have had an unwitnessed seizure this morning as he appears post-ictal. He is drowsy and having difficulty with word finding. Receiving Keppra 1000 mg PO this morning. EEG ordered. 02/25: 3 seizures yesterday. Keppra was increased to 1500 mg PO BID. Keppra level still pending. If he is seizure free for 24 hours then he can d/c on current regimen per Dr Manzano. Keppra can be titrated up to 2000 mg BID for recurrent seizure. If seizures persist then he will need a second agent. Will get MRI of brain today to rule out other sources of seizure. (3) History of asthma: Code(s): Z87.09 - Personal history of other diseases of the respiratory system Status: Acute Assessment and Plan: Takes nightly allergy medications Receiving albuterol nebs for expiratory wheezing q 4 hours prn. 02/25: Added solu-medrol for diffuse wheezing despite nebulizer treatments. Wheezing has stopped and oxygen requirements are decreased. Will stop steroids today. Will send home with prn albuterol inhaler as needed as patient and his family have been noticing he has been having more wheezing as of late. He reports symptoms worse in the fall and spring. Plan Feeding:regular diet Analgesia:Tylenol Thromboembolic prophylaxis: n/a Ulcer prophylaxis: n/a Glycemic control: n/a Bowel regimen: prn miralax Lines: PIV Antibiotics: Rocephin and Flagyl for ASA pna Disposition: Home when medically ready Subjective Date/time seen: 02/25/23 07:22 Interval history: This is a 22 year old male with a PMH of asthma, depression, anxiety, and known seizure disorder who presented to [place] ED on 02/24 for two witnessed, presumed tonic colonic seizures.? The patient states that he was at home with his family when he suffered 2 tonic-clonic seizures with emesis in between seizures.? He did fall and hit his head and suffered an abrasion to the left side of his face.? His last seizure was about a month ago for which he was seen and treated in the ED and discharged with neurology follow-up.? He saw Dr. Manzano on 02/03 for which she increased his Keppra from 500 to a 1000 mg b.i.d. and he was given p.r.n. intranasal Valium.? Prior to that he had not had seizures for the
[2023-02-25 07:43] LABS: Amphetamine Screen Urine Negative (Negative); Barbiturate Screen Urine Negative (Negative); Benzodiazepines Screen Urine Negative (Negative); Cannabinoid Screen Urine Negative (Negative); Cocaine Screen Urine Negative (Negative); Methadone Screen Urine Negative (Negative); Opiate Screen Urine Negative (Negative); Phencyclidine Screen Urine Negative (Negative)
[2023-02-25] MEDS: levETIRAcetam 500 MG TABLET 1500 MG PO ×2 (09:57→20:12)
[2023-02-25] MEDS: PANTOPRAZOLE SODIUM IV 40 MG VIAL IV PUSH (09:58)
--- NOTE | 2023-02-25 11:18 | WPDNEUROPN ---
Progress Note: A&P Assessment and Plan (1) Seizure: Code(s): R56.9 - Unspecified convulsions Status: Acute Plan Patient is a 22 year old male with a history of childhood onset foca epilepsy presenting due to breakthrough seizures that seem to be unprovoked. Keppra increased to 1500mg BID. Routine EEG is pending. He has had CT head which is unrevealing but never had MRI brain. - MRI brain - Continue Keppra 1500mg BID - Routine EEG pending Subjective Date/time seen: 02/25/23 11:18 Interval history: Prince Finn is a 22 year old male with a history of childhood onset seizures presenting due to multiple breakthrough seizures. Patient was seen by me a few weeks ago in Neurology clinic. He started having seizures in high school but had been seizure free about five years and then this year started having seizures again. He was started on Keppra, with dose increased from 500mg BID to 1000mg BID earlier this month. Since the increase he has had several seizures, most recently causing him to be admitted. Keppra dose was increased to 1500mg BID. His last seizure was yesterday around 1999. He reports good compliance with his Keppra at home. Review of Systems Review of Systems: All systems reviewed & are unremarkable except as noted in HPI and below Exam Const: General: comfortable and no acute distress HENMT: Mouth: Yes moist mucous membranes Eyes: Pupils: Equal, round and reactive pupils present EOM: EOMs intact bilaterally Resp: Effort & Inspection: normal respiratory effort Skin: Other: Abrasions to the L side of the face Neuro: Other: Pupils equal and reactive bilaterally, EOMI, face symmetric, facial sensation intact, tongue protrudes midline, palate midline. Shoulder shrug normal. Strength 5/5 throughout. Sensation intact throughout. FNF normal bilaterally. Language comprehension and fluency intact. Gait deferred. Extrem: General: normal to inspection Psych: Mental Status: mental status grossly normal Affect: normal affect Objective Data Vital Signs Vital Signs: Vital Signs - 24 hr 02/24/23 13:04 02/24/23 13:04 02/24/23 13:21 Temperature Pulse Rate 130 H 130 H 127 H Respiratory Rate 26 H 26 H 24 H Blood Pressure Pulse Oximetry 95 Oxygen Delivery Nasal Cannula Oxygen Flow Rate 2 02/24/23 14:00 02/24/23 12:00 02/24/23 16:00 Temperature 36.6 C Pulse Rate 113 H 114 H 114 H Respiratory Rate 21 H Blood Pressure 119/73 Pulse Oximetry 95 Oxygen Delivery Oxygen Flow Rate 02/24/23 19:50 02/24/23 19:59 02/24/23 20:00 Temperature Pulse Rate 111 H 111 H 123 H Respiratory Rate 26 H 24 H Blood Pressure Pulse Oximetry 96 Oxygen Delivery Nasal Cannula Oxygen Flow Rate 5 02/24/23 20:33 02/24/23 20:00 02/24/23 23:24 Temperature 37.1 C Pulse Rate 120 H 109 H 120 H Respiratory Rate 20 20 Blood Pressure 127/59 L Pulse Oximetry 94 95 94 Oxygen Delivery Nasal Cannula Nasal Cannula Oxygen Flow Rate 4 4 02/24/23 20:00 02/25/23 00:00 02/25/23 04:00 Temperature Pulse Rate 115 H 114 H 75 Respiratory Rate Blood Pressure Pulse Oximetry Oxygen Delivery Oxygen Flow Rate 02/25/23 05:28 02/25/23 06:15 02/25/23 06:35 Temperature 36.6 C Pulse Rate 90 Respiratory Rate 18 Blood Pressure 129/61 Pulse Oximetry 98 98 96 Oxygen Delivery Nasal Cannula Nasal Cannula Oxygen Flow Rate 3 2 02/25/23 08:00 02/25/23 09:45 Temperature Pulse Rate 84 84 Respiratory Rate 18 Blood Pressure Pulse Oximetry 96 Oxygen Delivery Nasal Cannula Oxygen Flow Rate 2 Intake/Output Intake/Output: Intake & Output 02/22/23 02/23/23 02/24/23 02/25/23 23:59 23:59 23:59 23:59 Intake Total 2150 460 Output Total 600 Balance 2150 -140 Meds/Results Medications: Active Medications Generic Name Dose Route Start Last Admin Trade Name Freq PRN Reason Stop Dose Admin Acetaminophen 650 mg 01/28
--- NOTE | 2023-02-25 13:21 | PC.NURSE ---
On 02/25/23, the student, [Sayda Max], provided care and completed [facility] documentation on this patient. I have reviewed the student's documentation and agree with the findings.
[2023-02-25] MEDS: LORATADINE 10 MG TABLET PO (20:12)
[2023-02-25] MEDS: SERTRALINE HCL 50 MG TABLET 100 MG PO (20:12)
[2023-02-26] VITALS: PULSE 87
[2023-02-26 04:00] VITALS: PULSE 80
[2023-02-26 05:10] VITALS: BP 136/72; PULSE 90; RESP 18; TEMP 37.1; O2SAT 95
[2023-02-26] MEDS: metroNIDAZOLE 500 MG/ISO 100ML 500 MG/100 ML BAG 100 MG IVPB (05:15)
[2023-02-26 06:02] LABS: Basophils Percent Auto 0.1 % (0.2-1.2); Eosinophils Percent Auto 0.1 % (0-4.4); Hematocrit 35.8 % (42.0-52.0); Hemoglobin 11.3 g/dL (14.0-18.0); Immature Granulocyte Absolute 0.15 K/mm3 (0.00-0.031); Immature Granulocyte Percent A 1.1 % (0-0.5); Lymphocytes Absolute Auto 2.07 K/mm3 (0.9-3.2); Lymphocytes Percent Auto 15.7 % (18.3-44.2); Mean Corpuscular HGB Conc 31.6 g/dl (32-36); Mean Corpuscular Hemoglobin 26.3 pg (26-34); Mean Corpuscular Volume 83.4 fl (80-100); Mean Platelet Volume 10.4 fl (7.4-10.4); Monocytes Absolute Auto 0.9 K/mm3 (0.1-0.6); Monocytes Percent Auto 6.9 % (2.6-8.5); Neutrophils Percent Auto 76.1 % (45.5-73.1); Platelet Count Result 245 k/mm3 (150-375); Red Blood Count 4.29 M/mm3 (4.6-6.20); Red Cell Distribution Width 14.4 % (11.5-14.5); White Blood Count 13.2 K/mm3 (4.5-10.0)
[2023-02-26 06:42] VITALS: O2SAT 95
[2023-02-26 06:43] LABS: Alanine Aminotransferase 34 U/L (6-50); Albumin Level 3.4 g/dL (3.5-5.1); Alkaline Phosphatase 61 U/L (38-126); Anion Gap 8 mmol/L (8-16); Aspartate Amino Transferase 20 U/L (17-59); Bilirubin,Total 0.4 mg/dL (0.2-1.3); Blood Urea Nitrogen 12 mg/dL (9-20); Calcium 8.5 mg/dL (8.4-10.2); Carbon Dioxide 26 mmol/L (22-30); Chloride 106 mmol/L (98-107); Estimated CRCL calculation 182 ml/min; Estimated Glomerular Filt Rate > 60; Glucose 116 mg/dL (65-110); Potassium 3.6 mmol/L (3.4-5.0); Sodium 140 mmol/L (137-145)
--- NOTE | 2023-02-26 07:38 | PM.IMPN ---
Progress Note: A&P Assessment and Plan (1) Acute hypoxic respiratory failure: Code(s): J96.01 - Acute respiratory failure with hypoxia Status: Acute Assessment and Plan: Acute oxygen desaturations of 85-86% in the ED requiring oxygen to keep pulse ox > 92%. Currently on 2 L NC Received albuterol and ipratropium nebs in the ED. WBC 12.4 Lactic 8.8 on admission (2 L NS in the ED)--lactic 2.2. Repeat lactic this morning 4.6 (receiving another 2 L NS). Imaging from CT head/cervical/facial shows ground glass opacities and nodules in the right upper lobe. Patient had emesis in between seizures and witnessed aspiration. Started on Rocephin and Flagyl for ASA pneumonia Scheduled albuterol nebs q 4 hours. 02/24: Appears unwell today. He has a low grade fever, 100.9 and is SOB with coarse RUL lung sounds. Starting on IV antibiotics for ASA PNA, fluid bolus for sepsis, blood cultures pending. 02/25:Lactic has cleared, 1.8. WBC remains stable at 12.4, now on steroids. Wheezing is resolved, will stop steroids. Plan to de-escalate antibiotics tomorrow. 02/26: WBC stable at 13.2, afebrile. VSS. On 1 L NC overnight. (2) History of seizures: Code(s): Z87.898 - Personal history of other specified conditions Status: Acute Assessment and Plan: Witnessed tonic clonic seizures Follows with Dr Manzano. Initially was on Keppra 500 mg PO BID and then dose was increased to 1000 mg BID on 02/03/2023. Also given Valtoco 20 mg nasal spray as needed. Was loaded with Keppra 500 mg IVP in the ED. Restarting Keppra 1000 mg PO BID now. Keppra level ordered and pending UDS ordered Neurology has been consulted and recommendations are appreciated. Ativan 2 mg IVP PRN for active seizure, seizure precautions. EEG ordered for today 02/24: May have had an unwitnessed seizure this morning as he appears post-ictal. He is drowsy and having difficulty with word finding. Receiving Keppra 1000 mg PO this morning. EEG ordered. 02/25: 3 seizures yesterday. Keppra was increased to 1500 mg PO BID. Keppra level still pending. If he is seizure free for 24 hours then he can d/c on current regimen per Dr Manzano. Keppra can be titrated up to 2000 mg BID for recurrent seizure. If seizures persist then he will need a second agent. Will get MRI of brain today to rule out other sources of seizure. 02/26: Awaiting MRI. Machine was down yesterday so studies had to be delayed. (3) History of asthma: Code(s): Z87.09 - Personal history of other diseases of the respiratory system Status: Acute Assessment and Plan: Takes nightly allergy medications Receiving albuterol nebs for expiratory wheezing q 4 hours prn. 02/25: Added solu-medrol for diffuse wheezing despite nebulizer treatments. Wheezing has stopped and oxygen requirements are decreased. Will stop steroids today. Will send home with prn albuterol inhaler as needed as patient and his family have been noticing he has been having more wheezing as of late. He reports symptoms worse in the fall and spring. Plan Feeding:regular diet Analgesia:Tylenol Thromboembolic prophylaxis: n/a Ulcer prophylaxis: n/a Glycemic control: n/a Bowel regimen: prn miralax Lines: PIV Antibiotics: Rocephin and Flagyl for ASA pna Disposition: Home when medically ready Subjective Date/time seen: 02/26/23 07:38 Interval history: This is a 22 year old male with a PMH of asthma, depression, anxiety, and known seizure disorder who presented to [place] ED on 02/24 for two witnessed, presumed tonic colonic seizures.? The patient states that he was at home with his family when he suffered 2 tonic-clonic seizures with emesis in between seizures.? He did fall and hit his head and suffered an abrasion to the left side of his face.? His last seizure was about a month ago for which he was seen and treated in the ED and discharged with neurology follow-up.? He saw Dr. Manzano on 02/03 for w
[2023-02-26] MEDS: levETIRAcetam 500 MG TABLET 1500 MG PO (08:25)
[2023-02-26 09:00] VITALS: O2SAT 95
[2023-02-26] MEDS: PANTOPRAZOLE SODIUM IV 40 MG VIAL IV PUSH (10:11)
--- NOTE | 2023-02-26 10:21 | WPDNEUROLOGY ---
Neurology EEG Report General Information Date of Study: 02/25/23 TEST Routine EEG DIAGNOSIS Seizure CONDITION OF RECORDING Awake, drowsy, asleep EEG NUMBER [id number] CLINICAL HISTORY Patient with a history of epilepsy presenting with breakthrough seizures, unprovoked. EEG DESCRIPTION During the awake state with eyes closed the background consists of 8 Hz posterior dominant rhythm which attenuates appropriately with eye opening. The recording is continuous. There is a well developed anterior-posterior gradient. No significant asymmetries of background activities are noted. With drowsiness there is waxing and waning of the dominant rhythm with eventual replacement by a mixture of beta, alpha, and theta activity. As the patient enters stage II sleep, symmetrical spindles and K-complexes are present. Arousal is unremarkable. There are no epileptiform discharges or seizures during this recording. Hyperventilation and photic stimulation were not performed. IMPRESSION This is a normal routine EEG recorded in awake and asleep states. There are no electrographic seizures identified, nor are there any epileptiform discharges. Please note that a normal EEG cannot exclude a seizure disorder. Clinical correlation is recommended.
--- NOTE | 2023-02-26 11:38 | WPDNEUROPN ---
Progress Note: A&P Assessment and Plan (1) Seizure: Code(s): R56.9 - Unspecified convulsions Status: Acute Plan Patient is a 22 year old male with a history of childhood onset foca epilepsy presenting due to breakthrough seizures that seem to be unprovoked. Keppra increased to 1500mg BID. Routine EEG and MRI brain are normal. He has not had a seizure in >24 hours. - Ok to discharge from seizure standpoint - Continue Keppra 1500mg BID - Discussed no driving or operating heavy machinery until seizure free for 6 months Subjective Date/time seen: 02/26/23 11:38 Interval history: Prince Finn is a 22 year old male with a history of childhood onset seizures presenting due to multiple breakthrough seizures. Patient was seen by me a few weeks ago in Neurology clinic. He started having seizures in high school but had been seizure free about five years and then this year started having seizures again. He was started on Keppra, with dose increased from 500mg BID to 1000mg BID earlier this month. Since the increase he has had several seizures, most recently causing him to be admitted. Keppra dose was increased to 1500mg BID. His last seizure was day before yesterday around 1999. He reports good compliance with his Keppra at home. MRI brain and routine EEG are normal. No seizures in the past day. Review of Systems Review of Systems: All systems reviewed & are unremarkable except as noted in HPI and below Exam Const: General: comfortable and no acute distress HENMT: Mouth: Yes moist mucous membranes Eyes: Pupils: Equal, round and reactive pupils present EOM: EOMs intact bilaterally Resp: Effort & Inspection: normal respiratory effort Skin: Other: Abrasions to the L side of the face Neuro: Other: Pupils equal and reactive bilaterally, EOMI, face symmetric, facial sensation intact, tongue protrudes midline, palate midline. Shoulder shrug normal. Strength 5/5 throughout. Sensation intact throughout. FNF normal bilaterally. Language comprehension and fluency intact. Gait deferred. Extrem: General: normal to inspection Psych: Mental Status: mental status grossly normal Affect: normal affect Objective Data Vital Signs Vital Signs: Vital Signs - 24 hr 02/25/23 12:19 02/25/23 12:04 02/25/23 14:00 Temperature 36.6 C Pulse Rate 113 H 103 H Respiratory Rate 20 Blood Pressure 155/79 H Pulse Oximetry 96 100 Oxygen Delivery Nasal Cannula Oxygen Flow Rate 4 02/25/23 16:00 02/25/23 16:38 02/25/23 20:59 Temperature 36.8 C Pulse Rate 108 H 97 99 Respiratory Rate 20 20 Blood Pressure 138/51 L Pulse Oximetry 93 97 Oxygen Delivery Room Air Oxygen Flow Rate 02/25/23 20:00 02/25/23 20:00 02/26/23 00:00 Temperature Pulse Rate 114 H 87 Respiratory Rate Blood Pressure Pulse Oximetry Oxygen Delivery Room Air Oxygen Flow Rate 02/26/23 04:00 02/26/23 05:10 02/26/23 06:42 Temperature 37.1 C Pulse Rate 80 90 Respiratory Rate 18 Blood Pressure 136/72 Pulse Oximetry 95 95 Oxygen Delivery Nasal Cannula Oxygen Flow Rate 1 02/26/23 09:00 Temperature Pulse Rate Respiratory Rate Blood Pressure Pulse Oximetry 95 Oxygen Delivery Nasal Cannula Oxygen Flow Rate 1 Intake/Output Intake/Output: Intake & Output 02/23/23 02/24/23 02/25/23 02/26/23 23:59 23:59 23:59 23:59 Intake Total 2150 2000 500 Output Total 600 Balance 2150 1400 500 Meds/Results Medications: Active Medications Generic Name Dose Route Start Last Admin Trade Name Freq PRN Reason Stop Dose Admin Acetaminophen 650 mg 02/24/23 07:31 02/24/23 09:52 Acetaminophen 325 Mg Tablet PO 650 mg Q4H PRN Administration Mild Pain (1-3) or Fever Albuterol 2.5 mg 02/24/23 09:50 02/24/23 19:50 Albuterol Sulfate Neb 2.5 Mg/3 Ml Inh INHALATION 2.5 mg Q4HRT PRN Administration Shortness Of Breath Ceftriaxone Sodium 1 gm in 50 mls @
--- NOTE | 2023-02-26 12:02 | PM.DS ---
DS: Admitting Diagnosis Discharge Date 02/26 Admitting Diagnosis seizure DS: Discharge Diagnosis Discharge Diagnosis (1) Acute hypoxic respiratory failure: Code(s): J96.01 - Acute respiratory failure with hypoxia Status: Acute Assessment and Plan: Acute oxygen desaturations of 85-86% in the ED requiring oxygen to keep pulse ox > 92%. Currently on 2 L NC Received albuterol and ipratropium nebs in the ED. WBC 12.4 Lactic 8.8 on admission (2 L NS in the ED)--lactic 2.2. Repeat lactic this morning 4.6 (receiving another 2 L NS). Imaging from CT head/cervical/facial shows ground glass opacities and nodules in the right upper lobe. Patient had emesis in between seizures and witnessed aspiration. Started on Rocephin and Flagyl for ASA pneumonia Scheduled albuterol nebs q 4 hours. 02/24: Appears unwell today. He has a low grade fever, 100.9 and is SOB with coarse RUL lung sounds. Starting on IV antibiotics for ASA PNA, fluid bolus for sepsis, blood cultures pending. 02/25:Lactic has cleared, 1.8. WBC remains stable at 12.4, now on steroids. Wheezing is resolved, will stop steroids. Plan to de-escalate antibiotics tomorrow. 02/26: WBC stable at 13.2, afebrile. VSS. On 1 L NC overnight. (2) History of seizures: Code(s): Z87.898 - Personal history of other specified conditions Status: Acute Assessment and Plan: Witnessed tonic clonic seizures Follows with Dr Manzano. Initially was on Keppra 500 mg PO BID and then dose was increased to 1000 mg BID on 02/03/2023. Also given Valtoco 20 mg nasal spray as needed. Was loaded with Keppra 500 mg IVP in the ED. Restarting Keppra 1000 mg PO BID now. Keppra level ordered and pending UDS ordered Neurology has been consulted and recommendations are appreciated. Ativan 2 mg IVP PRN for active seizure, seizure precautions. EEG ordered for today 02/24: May have had an unwitnessed seizure this morning as he appears post-ictal. He is drowsy and having difficulty with word finding. Receiving Keppra 1000 mg PO this morning. EEG ordered. 02/25: 3 seizures yesterday. Keppra was increased to 1500 mg PO BID. Keppra level still pending. If he is seizure free for 24 hours then he can d/c on current regimen per Dr Manzano. Keppra can be titrated up to 2000 mg BID for recurrent seizure. If seizures persist then he will need a second agent. Will get MRI of brain today to rule out other sources of seizure. 02/26: Awaiting MRI. Machine was down yesterday so studies had to be delayed. (3) History of asthma: Code(s): Z87.09 - Personal history of other diseases of the respiratory system Status: Acute Assessment and Plan: Takes nightly allergy medications Receiving albuterol nebs for expiratory wheezing q 4 hours prn. 02/25: Added solu-medrol for diffuse wheezing despite nebulizer treatments. Wheezing has stopped and oxygen requirements are decreased. Will stop steroids today. Will send home with prn albuterol inhaler as needed as patient and his family have been noticing he has been having more wheezing as of late. He reports symptoms worse in the fall and spring. Plan Feeding:regular diet Analgesia:Tylenol Thromboembolic prophylaxis: n/a Ulcer prophylaxis: n/a Glycemic control: n/a Bowel regimen: prn miralax Lines: PIV Antibiotics: Rocephin and Flagyl for ASA pna Disposition: Home when medically ready DS: Summary Hospital Course Hospital Course: Interval history: This is a 22 year old male with a PMH of asthma, depression, anxiety, and known seizure disorder who presented to [facility] ED on 02/24 for two witnessed, presumed tonic colonic seizures.? The patient states that he was at home with his family when he suffered 2 tonic-clonic seizures with emesis in between seizures.? He did fall and hit his head and suffered an abrasion to the left side of his face.? His last seizure was about a month ago for which he was seen and treated in
[2023-02-27 00:33] LABS: Levetiracetam Keppra 17.1 mcg/mL (6.0-46.0)
== END 2023-02-26 12:18 | disposition home or self-care (01) | DRG 189 ==
LOC: ANHED 05:05 → ANH2MED 05:31
PROVIDERS: Admitting Provider Internal Medicine; Emergency Provider Emergency Medicine; PCP Physician Assistant; Visit Provider Nurse Practitioner Acute Care
DX: J96.01 Acute respiratory failure with hypoxia (principal); J69.0 Pneumonitis due to inhalation of food and vomit; S00.81XA Abrasion of other part of head, initial encounter; W19.XXXA Unspecified fall, initial encounter; F32.A Depression, unspecified; F41.9 Anxiety disorder, unspecified; G40.909 Epilepsy, unspecified, not intractable, without status epilepticus; J45.909 Unspecified asthma, uncomplicated; R91.8 Other nonspecific abnormal finding of lung field; Z20.822 Contact with and (suspected) exposure to COVID-19; Z90.49 Acquired absence of other specified parts of digestive tract
CPT/HCPCS: 36415; 36600; 70450; 70486; 70553; 71045; 72125; 80053; 80177; 80307; 82805; 83605; 83735; 84145; 84484; 85025; 85610; 85730; 87040; 87637; 93005; 94640; 95816; 96361; 96365; 96375; 99285; A9270; A9577; C9113; G0378; J0696; J1836; J1953; J2060; J2405; J2930; J7030

== ENCOUNTER 2023-09-14 10:50 | Outpatient (CLI) | payer BC, SELFPAY ==
--- NOTE | ~2023-09-14 | XR_ITS ---
EXAMINATION: XR ankle LT 2V DATE: 09/14/2023 11:12 INDICATION: Left ankle pain with limp TECHNIQUE: Anteroposterior, oblique, mortise, and lateral views of the left ankle were obtained. COMPARISON: None. FINDINGS: Corticated ossicle along the anterior margin of the lateral malleolus consistent with either chronic nonunited avulsion fracture or heterotopic ossification related to chronic tear of the anterior talof ibular ligament. Bone alignment is normal. No acute fractures. Small Achilles calcaneal spur. Left an kle joint space and the profiled joint spaces in the mid and hindfoot appear relatively preserved. So ft tissues are unremarkable. No ankle joint effusion. IMPRESSION: 1. Chronic nonunited avulsion fracture fragment versus more likely heterotopic ossification at the an terior talofibular ligament consistent with sequela of chronic trauma. No acute osseous abnormality. Reviewed, dictated and finalized at location A. IMPRESSION: 1. Chronic nonunited avulsion fracture fragment versus more likely heterotopic ossification at the anterior talofibular ligament consistent with sequela of ch ronic trauma. No acute osseous abnormality.
== END 2023-09-14 10:51 | disposition home or self-care (01) ==
PROVIDERS: PCP Physician Assistant; Visit Provider Internal Medicine
DX: M25.572 Pain in left ankle and joints of left foot (principal); R93.6 Abnormal findings on diagnostic imaging of limbs
CPT/HCPCS: 73600

== ENCOUNTER 2023-12-15 10:44 | Outpatient (CLI) | payer BC, SELFPAY ==
[2023-12-15 12:36] LABS: Folic Acid 13.8 ng/mL (2.76->20)
[2023-12-16 12:04] LABS: Levetiracetam Keppra 52.3 mcg/mL (6.0-46.0)
[2023-12-17 17:24] LABS: Methylmalonic Acid 190 nmol/L (55-335)
[2023-12-18 11:22] LABS: Vitamin D 1,25 (OH)2 Total 61 pg/mL (18-72); Vitamin D2 1,25 (OH)2 <8 pg/mL; Vitamin D3 1,25 (OH)2 61 pg/mL
== END 2023-12-15 10:45 | disposition home or self-care (01) ==
LOC: ANHLAB 10:46
PROVIDERS: PCP Physician Assistant; Visit Provider Psychiatry & Neurology Neurology
DX: G40.219 Localization-related (focal) (partial) symptomatic epilepsy and epileptic syndromes with complex partial seizures, intractable, without status epilepticus (principal); E55.9 Vitamin D deficiency, unspecified
CPT/HCPCS: 36415; 80177; 82607; 82652; 82746; 83921; 84443

== ENCOUNTER 2023-12-27 15:02 | Outpatient (CLI) | payer BC, SELFPAY ==
[2023-12-27 17:11] LABS: IFOB Positive Control Positive; Immunochemical Fecal Occult Bl Negative (N)
[2023-12-27 18:18] LABS: Toxigenic C. Diff POSITIVE (NEGATIVE)
[2024-01-03 15:51] LABS: Trichrome Ova and Parasites STATUS: FINAL
== END 2023-12-27 15:03 | disposition home or self-care (01) ==
LOC: ANHLAB 15:03
PROVIDERS: PCP Nurse Practitioner; Visit Provider Nurse Practitioner
DX: R19.7 Diarrhea, unspecified (principal)
CPT/HCPCS: 82274; 87045; 87177; 87209; 87427; 87449; 87493

== ENCOUNTER 2024-02-01 10:35 | Outpatient (CLI) | payer BC, SELFPAY ==
--- NOTE | 2024-02-28 11:09 | WPDSLEEPSTUD ---
Sleep Study Date of Study: 02/01/24 Ordering Provider: SARI aGtes Interpreting Physician: Chantel Monge DO Sleep Study Type: Polysomnogram Height: 1.7 m Weight: 122.47 kg Body Mass Index: 42.3 Neck Circumference (inches): 15.75 [place]: 8 Reason for Sleep Study Difficulty falling and staying asleep Sleep History The patient is a 23-year-old male with anxiety, depression and seizure disorder that had a sleep study ordered by the pulmonary group for evaluation of sleep apnea. The patient denies awakening from sleep short of breath. He denies awakening at night with heartburn, belching or cough. He denies having trouble sleeping when he has a cold. He denies waking up gasping for air throughout the night. He denies having breathing problems at night observed by himself or others. He rarely sweats excessively at night. He denies having heart palpitations or irregular heartbeats during the night. He occasionally falls asleep during the day but never while driving. He denies sleep paralysis and cataplexy. He denies having trouble at school or work due to sleepiness. He rarely experiences vivid dreamlike scenes upon awakening or falling asleep. He denies feeling afraid of going to sleep. He rarely has nightmares. He occasionally remembers his dreams. He frequently has thoughts racing through his mind. He frequently feels sad, depressed and anxious. He rarely has muscular tension. He rarely notices parts of his body jerk. He rarely kicks during the night. He denies having crawling and aching feelings in his legs and denies having leg pain during the night. He denies grinding his teeth during sleep and denies awakening with morning jaw pain. He is rarely bothered by pain during the day and rarely awakened by pain during the night. He occasionally wakes up feeling stiff in the morning. He occasionally wakes up with sore or achy muscles. He occasionally wakes up with pain in the neck, spine and other joints. He goes to bed between 10:00 p.m. to midnight on both weekdays and weekends. It takes him 1-2 hours to fall asleep. He wakes up once throughout the night to urinate and he is able to fall back asleep within 10-30 minutes. He wakes up between 9-10 a.m. on both weekdays and weekends. He typically gets 8-10 hours of sleep per night. He will stay in bed for 30-60 minutes after waking up in the morning. He currently lives with his parents. He denies consuming any caffeinated beverages within 2 hours of bedtime. He denies engaging in physical exercise before bedtime. He denies reading before falling asleep. He will watch television before falling asleep. He will take naps in the afternoon or the evening and they are refreshing. He consumes 1-2 caffeinated beverages per day. He has 3 alcoholic beverages per year. He denies tobacco use. 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 Seasonal allergies Seizure Surgical History Surgical History Hx laparoscopic cholecystectomy 04/16/20 [place] teeth extracted Family History Family History Father ADHD Mother ADHD Social History Social History Smoking status: Never smoker Second hand tobacco smoke exposure: No Alcohol intake: never Alcohol use details: consumes 5-6 shots of vodka rarely Substance use: never Substance use type: does not use Current Housing: Decline to Answer Concerned About Future Housing: Decline to Answer Difficulty Paying Gas/Electric Bills: Decline to Answer Difficulty Paying for Meds: Decline to Answer Currently Unemployed: Decline to Answer Education: Decline to Answer Difficulty w/ Childcare or Family Care: Decline to Answer Living arrangements: with family Gender identity (if verbalized by the patient): Male Spiritual care concerns: No Medications Home Medications Medication Instructions Recorded Confirmed Type cetirizine 10 mg tablet 10 mg PO QHS 10/31/19 01/18/24 History diazepam 20 mg/2 spray (10 mg/0.1 20 mg (0.2 mL) intranasal ONCE PRN 02/03/23 01/18/24 Rx mL x 2) nasal spray (Valtoco) seizure > 5 minutes #2 sprays albuterol sulfate 90 mcg/actuation 2 puff inhalation QID PRN 02/25/23 01/18/24 Rx aerosol inhaler shortness of breath or wheezing #8.5 grams sertraline 100 mg tablet 100 mg PO QHS #90 tabs 11/22/23 01/18/24 Rx eslicarbazepine 600 mg tablet 1,200 mg PO DAILY #28 tabs 12/15/23 01/18/24 Rx (Aptiom) eslicarbazepine 600 mg tablet 600 mg PO DAILY #30 tabs 12/15/23 01/18/24 Rx (Aptiom) levetiracetam 1,000 mg tablet 2,000 mg PO Q12H #120 tabs 12/15/23 01/18/24 Rx zonisamide 100 mg capsule 300 mg PO DAILY #90 caps 12/15/23 01/18/24 Rx eszopiclone 2 mg tablet (Lunesta) 2 mg PO ONCE #1 tablet 01/18/24 01/18/24 Rx Sleep Procedure A full night polysomnogram using the Treedom multi-channel system recorded the standard physiologic parameters including EEG, EOG, submentalis EMG, anterior tibialis EMG, EKG, body position, nasal and oral airflow using nasal pressure sensor and thermistor.? Respiratory parameters of chest and abdominal movements were recorded with Respiratory Inductance Plethysmography belts. Oxygen saturation was recorded by pulse oximetry. Video monitoring was also performed. Sleep stages, periodic limb movements, and EEG arousals were scored in 30 second epochs according to the criteria of the AASM Scoring Manual. The Apnea-Hypopnea Index was calculated using CMS guidelines for definition of hypopnea with 4% O2 desaturations while scoring respiratory events. Sleep Architecture The total recording time was 479.1 minutes.? The total sleep time was 442.5 minutes. Sleep latency was 15.1 minutes. REM latency was 271.5 minutes. Sleep efficiency was 92.4%. The patient had 28 awakenings for an awakening index of 3.8. Wake after sleep onset time was 21.5 minutes. The patient spent 49.0 minutes, 11.1% of total sleep time in Stage N1. The patient spent 258.5 minutes, 58.4% in Stage N2. The patient spent 50.5 minutes, 11.4% in Stage N3. The patient spent 84.5 minutes, 19.1% in Stage REM sleep. Respiratory Analysis The patient had 59 hypopneas, 1 obstructive apnea and 16 central apneas for an overall Apnea Hypopnea Index of 10.2. The REM Apnea Hypopnea Index was 9.9. The NREM Apnea Hypopnea Index was 10.2. The patient had a Central Apnea Hypopnea Index of 2.2. There were 10 Respiratory Effort Related Arousals resulting in a RERA index of 1.4 events per hour. The Respiratory Disturbance Index is 11.5 events per hour. There was no evidence of Librado-Bell Respirations. Arousals There were 174 total arousals for an arousal index of 23.6. There were 97 spontaneous arousals for an index of 13.2. There were 22 arousals due to respiratory events for an index of 3.0. There were 10 arousals due to periodic limb movements for an index of 1.4.? There were 34 arousals due to isolated limb movements for an index of 4.6. Periodic Limb Movements The patient had 63 isolated limb movements with an index of 8.5. The patient had 42 periodic limb movements with an index of 5.7. Patient had a total of 105 limb movements with a total limb movement index of 14.2. Oximetry Data The patient had an average oxygen saturation of 92.9% in sleep with a minimum oxygen saturation of 82.0% and a maximum oxygen saturation of 98.0%. The patient had 83 oxygen desaturations that were 4% or greater resulting in an Oxygen Desaturation Index of 11.5.? The patient spent 2.7 minutes, 0.6% of total sleep time with an oxygen saturation below 88%. Snoring Profile Mild snoring was present throughout the study. Cardiac Profile The EKG showed normal sinus rhythm.?No arrhythmias or PVCs were seen. The patient had an average pulse rate of 74.8 bpm with a minimum pulse of rate of 57.0 bpm and a maximum pulse rate of 105.0 bpm.? EEG Profile No signs of seizure activity seen. Assessment and Plan Assessment and Plan (1) FRANCK (obstructive sleep apnea): Code(s): G47.33 - Obstructive sleep apnea (adult) (pediatric) Status: Acute Assessment and Plan: The patient had an overall AHI of 10.2 with desaturation down to 82%. This is consistent with mild sleep apnea. Due to the patient's depression and seizure disorder, he qualifies for treatment. I recommend that the patient be prescribed Resmed AirSense 11 AutoPAP 5-15 cm H2O, CPAP mask/filters/tubing and heated humidity. This should be used with all episodes of sleep.? Compliance should be reviewed within 31-90 days of starting therapy for usage greater than 4 hours per night greater than 70% of the nights. The patient should be asked about symptoms such as?excessive daytime sleepiness, quality of sleep, decreased nocturia, increased?mental functioning such as memory, mood, and concentration. Data The data obtained during this sleep study is adequate for interpretation. Certification This sleep study has been reviewed by a board certified sleep medicine physician.
[2024-02-28 11:10] VITALS: BMI 42.3
== END 2024-02-02 06:40 | disposition home or self-care (01) ==
PROVIDERS: PCP Nurse Practitioner; Visit Provider Physician Assistant
DX: G47.33 Obstructive sleep apnea (adult) (pediatric) (principal)
CPT/HCPCS: 95810

== ENCOUNTER 2024-05-12 13:24 | Observation (INO) | payer SELFPAY ==
--- NOTE | ~2024-05-12 | XR_ITS ---
Exam: Abdomen 1V HISTORY: R proximal ureteral stone COMPARISON: Reference is made to a CT examination of the abdomen and pelvis performed 6 hours earlier TECHNIQUE: Supine images of the abdomen FINDINGS: Bowel gas pattern is non-obstructive. There is no free air or deep sulci. Redemonstration of a 6 mm calculus at the level of L3, consistent with patient's known right ureteral calculus. Lung bases are unremarkable. Bones and soft tissues are unremarkable. IMPRESSION: Nonspecific, nonobstructive bowel gas pattern. Stable positioning of the calculus within the right proximal ureter when compared with study performe d 6 hours earlier Reviewed, dictated and finalized at location A. IFIED MEDICAL CODING SPECIALIST IMPRESSION: Nonspecific, nonobstructive bowel gas pattern. Stable positioning of the calculus within the right proximal ureter when compar ed with study performed 6 hours earlier
--- NOTE | ~2024-05-12 | XR_ITS ---
EXAMINATION: XR retrograde pyelo w/stent RT DATE: 05/13/2024 09:17 INDICATION: Right ureteral stone. TECHNIQUE: 3 fluoroscopic images of the abdomen and pelvis were obtained during procedure performed b ana rosa Mina. Radiologist was not present for the imaging or procedure. The amount of fluoroscopy t braulio used during this procedure was 0.7 minutes. Total DAP was 1.12 mGym^2 COMPARISON: CT dated 05/12/2024 FINDINGS: Images demonstrate cannulation of the right ureter and retrograde contrast injections which opacifies the mildly dilated right renal collecting system. Right intrarenal stent placement which extends int o the right renal pelvis with distal loop formed in the bladder. The stone previously identified at t he right ureteropelvic junction is not visualized and may have either been extracted or obscured by c ontrast IMPRESSION: 1. Fluoroscopy utilized during urologic procedure with placement of a right internal ureteral stent i n expected position. 2. Prior stone at the right ureteropelvic junction unable be identified and may have either been extr acted or is obscured by contrast. Correlate with procedure note for further detail. Reviewed, dictated and finalized at location A. EF DOCKING MASTER IMPRESSION: 1. Fluoroscopy utilized during urologic procedure with placement of a right int ernal ureteral stent in expected position. 2. Prior stone at the right ureteropelvic junction unable be identified and may have either been extracted or is obscured by contrast. Correlate with procedur e note for further detail.
--- NOTE | ~2024-05-12 | CT_ITS ---
CLINICAL INDICATION: Right flank pain COMPARISON: 04/04/2020. TECHNIQUE: Multiple contiguous axial images of the abdomen and pelvis were performed without the admi nistration of intravenous contrast The dose-length product (DLP) was 1473.94 mGy-cm. Automated exposure control and iterative reconstruction technique were employed. FINDINGS/OBSERVATIONS: Visualized lower thorax: The bilateral lung bases are clear. The heart is of normal size, without pericardial effusion. Liver: The liver demonstrates homogeneously decreased attenuation (consistent with steatosis) and is markedl y enlarged measuring 23 cm in longitudinal dimension. Gallbladder and biliary system: The gallbladder is surgically absent Pancreas: Limited evaluation of the pancreas secondary to the lack of intravenous contrast. Spleen: The spleen demonstrates homogeneous attenuation and is markedly enlarged measuring 14 cm in longitudi nal dimension. Kidneys: Right-sided hydronephrosis with global enlargement of the right kidney extending to the proximal righ t ureter where a 6 mm stone is identified. The left kidney and ureter are unremarkable. Adrenal glands: Unremarkable. Gastrointestinal tract: Fecal stasis within the colon. Appendix: The air-filled appendix is of normal caliber (axial series, images 142 through 153) Vasculature: Unremarkable. Lymph nodes: Limited evaluation without intravenous contrast. Pelvic structures: The bladder is decompressed, and otherwise unremarkable. The prostate gland is not enlarged. Body wall and musculoskeletal: Small fat-containing umbilical hernia. No significant degenerative disease within the lower thoracic or lumbosacral spine. IMPRESSION: Right-sided hydroureteronephrosis secondary to a 6 mm stone in the proximal right ureter. Fatty infiltration of an enlarged liver. Hepatosplenomegaly Reviewed, dictated and finalized at location A. CHER STANDARD MACHINE IMPRESSION: Right-sided hydroureteronephrosis secondary to a 6 mm stone in the proximal rig ht ureter. Fatty infiltration of an enlarged liver. Hepatosplenomegaly
[2024-05-12 13:30] VITALS: BP 140/62; PULSE 105; RESP 18; TEMP 36.6; O2SAT 96
--- OUTSIDE RECORDS SUMMARY | 2024-05-12 13:30 | XMS_ITS | Patient Health Summary ---
Author Organization [facility] Address [address] [place] [address] Care Team Providers Care Grape Cutter Name Role Phone Mike Lisa MD Primary Care Provider [phone] Note from [facility],non-owned Affiliates and Associated Physician Practices is amultiple site organization consisting of ambulatory clinics and hospital sitesin [place], [place], [place] and [place]. This disclosure is being madepursuant to the Care Everywhere program and may not contain all information available regarding this patient. Last updated 17.[facility] [employer] Allergies No known active allergies Medications Be aware that medications may not be up to date on this document. Always verify current medications with the patient. 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 Therapeutic drug monitoring Social History Tobacco Use Types Packs/Day Years Used Date Smoking Tobacco: Never Smokeless Tobacco: Never Alcohol Use Standard Drinks/Week Comments No 0 (1 standard drink = 0.6 oz pur e alcohol) Sex and Gender Information Value Date Recorded Sex Assigned at Not on file Gender Identity Not on file Sexual Orientation Not on file Last Filed Vital Signs Vital Sign Reading Time Taken Comments Blood Pressure 114/68 08/05/2019 11:45 AM CDT Pulse 83 08/05/2019 11:45 AM CDT Temperature 36.6 C (97.8 F) 08/05/2019 11:45 AM CDT Respiratory Rate 16 08/05/2019 11:45 AM CDT Oxygen Saturation 98% 08/05/2019 11:45 AM CDT Inhaled Oxygen Concentration - - Weight 98.9 kg (218 lb) 08/05/2019 11:45 AM CDT Height 167.6 cm (5' 6 ) 08/05/2019 11:45 AM CDT Body Mass Index 35.19 08/05/2019 11:45 AM CDT Procedures * LAB RESULTS ORDER(Performed 05/12/2016) * LAB RESULTS ORDER(Performed 11/06/2015) * TOPIRAMATE LEVEL(Performed 07/03/2015) Performed for Therapeutic drug monitoring * MAGNESIUM BLOOD(Performed 07/03/2015) Performed for Therapeutic drug monitoring * BASIC METABOLIC PANEL (CALCIUM TOTAL)(Performed 07/03/2015) Performed for Therapeutic drug monitoring * CBC W AUTO DIFFERENTIAL(Performed 07/03/2015) Performed for Therapeutic drug monitoring * PHOSPHORUS BLOOD(Performed 07/03/2015) Performed for Therapeutic drug monitoring * CBC W AUTO DIFFERENTIAL(Performed 02/07/2015) Performed for Therapeutic drug monitoring * BASIC METABOLIC PANEL (CALCIUM TOTAL)(Performed 02/07/2015) Performed for Therapeutic drug monitoring * VITAMIN D 25-HYDROXY(Performed 02/07/2015) Performed for Therapeutic drug monitoring * CARDIAC RHYTHM STRIP ORDER(Performed 12/15/2013) * DRUG ABUSE URINE PANEL(Performed 12/13/2013) * MRI BRAIN WWO CONTRAST(Performed 12/13/2013) Performed for Seizures (HCC) * EEG(Performed 12/13/2013) * PHOSPHORUS BLOOD(Performed 12/13/2013) * MAGNESIUM BLOOD(Performed 12/13/2013) * BASIC METABOLIC PANEL (CALCIUM TOTAL)(Performed 12/13/2013) Results * LAB RESULTS ORDER (05/12/2016 2:18 AM AUTOMOBILE BODY REPAIR SUPERVISOR) Only the most recent of2 resultswithin the time period is included. Narrative 05/12/2016 2:18 AM AUTOMOBILE BODY REPAIR SUPERVISOR Ordered by an unspecified provider. Scanned Document LAB - THERAPEUTIC DR UG MONITORING ORDERABLES * TOPIRAMATE LEVEL (07/03/2015 5:08 PM CDT) Pathologist [facility] Topiramate 10.0 2.0 - 25.0 ug/mL 07/05/2015 2:25 PM CDT [facility] ([facility]) Comment:Detection Limit = 1. 0 Blood specimen (specimen) BLOOD SPECIMEN / Unknown Lab Venipuncture / Unknown 07/03/2015 5:08 PM CDT 07/03/2015 5:52 PM CDT Narrative [facility] ([facility]) - 07/05/2015 2:25 PM CDT Performed at: [address] [place] [address] [id number] Digital Experience Manager: Greg Bolton MD, Phone: [phone] Onofre Pinto MD LAB - THERAPEUTI C DRUG MONITORING [facility]ABLES [facility] * (ABNORMAL) CBC W AUTO DIFFERENTIAL (07/03/2015 5:08 PM CDT) Only the most recent of2 resultswithin the time period is included. Pathologist [facility] WBC 9.1 4.5 - 11.0 x10E9/L 07/03/2015 6:31 PM CDT [facility] WBC Corrected x10E9/L 07/03/2015 6:31 PM CDT [facility] RBC 5.30 4.50 - 5.30 x10E12/L 07/03/2015 6:31 PM CDT [facility] Hemoglobin 13.7 13.0 - 16.0 gm/dL 07/03/2015 6:31 PM CDT [facility] Hematocrit 42.7 37.0 - 49.0 % 07/03/2015 6:31 PM CDT [facility] MCV 80.6 78.0 - 98.0 fl 07/03/2015 6:31 PM CDT [facility] MCH 25.8 25.0 - 35.0 pg 07/03/2015 6:31 PM CDT [facility] MCHC 32.1 31.0 - 37.0 gm/dL 07/03/2015 6:31 PM CDT [facility] Platelet Count 281 100 - 400 x10E9/L 07/03/2015 6:31 PM T [facility] RDW-CV 13.6 11.5 - 14.0 % 07/03/2015 6:31 PM T [facility] MPV 11.0(H) 6.0 - 9.5 fl 07/03/2015 6:31 PM T [facility] Neutrophils % 58.4 31.0 - 78.0 % 07/03/2015 6:31 PM T [facility] Lymphocytes % 32.5 13.0 - 54.0 % 07/03/2015 6:31 PM T [facility] Monocytes % 6.0 4.0 - 13.0 % 07/03/2015 6:31 PM T [facility] Eosinophils % 2.6 0.0 - 8.0 % 07/03/2015 6:31 PM T [facility] Basophils % 0.3 % 07/03/2015 6:31 PM T [facility] Immature Granulocytes 0.2 % 07/03/2015 6:31 PM T [facility] Neutrophil Absolute 5.31 x10E9/L 07/03/2015 6:31 PM T [facility] Lymphocytes Absolute 2.96 x10E9/L 07/03/2015 6:31 PM CDT [facility] Monocytes Absolute 0.55 x10E9/L 07/03/2015 6:31 PM CDT [facility] Eosinophils Absolute 0.24 x10E9/L 07/03/2015 6:31 PM T [facility] Basophils Absolute 0.03 x10E9/L 07/03/2015 6:31 PM T [facility] Immature Granulocytes Absolute 0.02 x10E9/L 07/03/2015 6:31 PM T [facility] nRBC Auto 0 /100 WBC 07/03/2015 6:31 PM T [facility] Blood BLOOD SPECIMEN / Unknown Lab Venipuncture / Unknown 07/03/2015 5:08 PM CDT 07/03/2015 5:53 PM CDT Onofre Pinto MD LAB - HEMATOLOGY ORDERABLES [facility] [address] [place] [address] * BASIC METABOLIC PANEL (CALCIUM TOTAL) (07/03/2015 5:08 PM CDT) Only the most recent of3 resultswithin the time period is included. [facility] Glucose 78 70 - 105 mg/dL 07/03/2015 7:19 PM CDT [facility] Sodium 140 136 - 145 mmol/L 07/03/2015 7:19 PM T [facility] Potassium 3.9 3.5 - 5.1 mmol/L 07/03/2015 7:19 PM T [facility] Chloride 107 98 - 107 mmol/L 07/03/2015 7:19 PM T [facility] CO2 24 20 - 28 mmol/L 07/03/2015 7:19 PM T [facility] Calcium 9.08 9.08 - 10.48 mg/dL 07/03/2015 7:19 PM T [facility] Anion Gap 9 5 - 20 mmol/L 07/03/2015 7:19 PM T [facility] BUN 8.1 5.3 - 18.7 mg/dL 07/03/2015 7:19 PM T [facility] Creatinine 0.65 0.61 - 1.07 mg/dL 07/03/2015 7:19 PM T [facility] eGFR by MDRD >60 mL/min/1.7 3m2 07/03/2015 7:19 PM T [facility] Comment: eGFR calculations are not performed for children under 18 years old. eGFR by MDRD >60 mL/min/1.7 3m2 07/03/2015 7:19 PM T [facility] Comment: eGFR calculations are not performed for children under 18 years old. Blood BLOOD SPECIMEN / Unknown Lab Venipuncture / Unknown 07/03/2015 5:08 PM CDT 07/03/2015 5:52 PM CDT Onofre Pinto MD LAB - CHEMISTRY ORDERABLES [facility] [address] [place] [address] * PHOSPHORUS BLOOD (07/03/2015 5:08 PM CDT) Only the most recent of2 resultswithin the time period is included. Phosphorus 4.53 2.76 - 5.14 mg/dL 07/03/2015 8:04 PM CDT [facility] Blood BLOOD SPECIMEN / Unknown Lab Venipuncture / Unknown 07/03/2015 5:08 PM CDT 07/03/2015 5:52 PM CDT Onofre Pinto MD LAB - CHEMISTRY ORDERABLES Performing Organization Address [facility] de Phone Number [facility] [address] [place] [phone] * (ABNORMAL) MAGNESIUM BLOOD (07/03/2015 5:08 PM CDT) Only the most recent of2 resultswithin the time period is included. Magnesium 2.6(H) 1.7 - 2.3 mg/dL 07/03/2015 8:04 PM CDT [facility] Blood BLOOD SPECIMEN / Unknown Lab Venipuncture / Unknown 07/03/2015 5:08 PM CDT 07/03/2015 5:52 PM CDT Onofre Pinto MD LAB - CHEMISTRY ORDERABLES Performing Organization Address [facility] de Phone Number [facility] [address] [place] [phone] * (ABNORMAL) VITAMIN D 25-HYDROXY (02/07/2015 5:08 PM AUTOMOBILE BODY REPAIR SUPERVISOR) Vitamin D, 25 Hydroxy 8.85(L) 30 - 100 ng/mL 02/08/2015 11:31 AM AUTOMOBILE BODY REPAIR SUPERVISOR [facility] Blood BLOOD SPECIMEN / Unknown Lab Venipuncture / Unknown 02/07/2015 5:08 PM AUTOMOBILE BODY REPAIR SUPERVISOR 02/07/2015 6:21 PM AUTOMOBILE BODY REPAIR SUPERVISOR Narrative [facility] - 02/08/2015 11:31 AM AUTOMOBILE BODY REPAIR SUPERVISOR Vitamin D Status: Deficiency <20 ng/mL Insufficiency 20-30 ng/mL Sufficiency 30-100 ng/mL Toxicity >100 ng/mL Onofre Pinto MD LAB - CHEMISTRY ORDERABLES [facility] [address] [place] [address] * CARDIAC RHYTHM STRIP ORDER (12/15/2013 12:44 AM CDT) Provider Unknown CARDIAC SERVICES ORD ERABLES * DRUG ABUSE URINE PANEL (12/13/2013 5:16 PM CDT) Amphetamines Screen Urine Not Detected Not Detected 12/13/2013 5:44 PM CDT [facility] Barbiturates Screen Urine Not Detected Not Detected 12/13/2013 5:44 PM CDT [facility] Benzodiazepines Screen Urine Not Detected Not Detected 12/13/2013 5:44 PM CDT [facility] Cannabinoids Screen Urine Not Detected Not Detected 12/13/2013 5:44 PM CDT [facility] Cocaine Screen Urine Not Detected Not Detected 12/13/2013 5:44 PM CDT [facility] Opiate Screen Urine Not Detected Not Detected 12/13/2013 5:44 PM CDT [facility] Phencyclidine Screen Urine Not Detected Not Detected 12/13/2013 5:44 PM CDT [facility] Urine URINE / Unknown 12/13/2013 5 :16 PM CDT 12/13/2013 5:21 PM CDT Narrative [facility] - 12/13/2013 5:44 PM CDT Medical urine drug screening is only a qualitative method. A Negative result does not prove the absence of a drug or a drug metabolite. The screening methods used are subject to cross-reactivity from other prescription and nonprescription drugs and should be interpreted carefully along with other pertinent clinical information. Drug Screening Test Cutoff Values: AMPHETAMINES 1000 ng/ml BARBITURATES 200 ng/ml BENZODIAZEPINES 200 ng/ml CANNABINOIDS (THC) 50 ng/ml COCAINE 300 ng/ml OPIATES 300 ng/ml PHENCYCLIDINE (PCP) 25 ng/ml Ashok Gunn MD LAB - URINE CHEMISTR Y ORDERABLES [facility] [address] [place] [address] * MRI BRAIN WITH AND WITHOUT CONTRAST (12/13/2013 3:55 PM CDT) Anatomical Region Laterality Modality Head Magnetic Resonan ce 12/13/2013 4:16 PM CDT Impressions 12/13/2013 4:26 PM CDT 1. Normal brain MRI. No MRI findings to explain seizures. Narrative 12/13/2013 4:26 PM CDT EXAMINATION: Brain MRI without and with contrast. HISTORY: Seizure. TECHNIQUE: MRI imaging of the brain and brainstem was performed without and with 20 ML Magnevist intravenous contrast according to a seizure protocol. COMPARISON: None available FINDINGS: There is no evidence of acute intracranial hemorrhage or acute infarct. There is no mass effect or midline shift. The ventricles are normal in size and configuration. The basal cisterns are patent. There is no intra-axial or extra-axial fluid collection. The rice-white matter differentiation is preserved. There is no abnormal enhancement in the brain parenchyma or meninges. The midline structures, including the corpus callosum, pituitary and pineal glands are normal. The craniocervical junction is normal. The superior sagittal sinus demonstrates normal flow voids. There is no evidence of cortical dysplasia, polymicrogyria, rice matter heterotopia or other types of cortical developmental malformation. The hippocampi are symmetric in size and normal in signal intensity. There is no evidence of mesial temporal sclerosis. The visualized portions of the scalp and calvarium are unremarkable. The posterior fossa is normal. The visualized portions of globes, orbits, paranasal sinuses and mastoids are normal. There are normal flow voids in the visualized intracranial arteries. Procedure Note Rochelle Weems MD - 12/13/2013 EXAMINATION: Brain MRI without and with contrast. HISTORY: Seizure. TECHNIQUE: MRI imaging of the brain and brainstem was performed without and with 20 ML Magnevist intravenous contrast according to a seizure protocol. COMPARISON: None available FINDINGS: There is no evidence of acute intracranial hemorrhage or acute infarct. There is no mass effect or midline shift. The ventricles are normal in size and configuration. The basal cisterns are patent. There is no intra-axial or extra-axial fluid collection. The rice-white matter differentiation is preserved. There is no abnormal enhancement in the brain parenchyma or meninges. The midline structures, including the corpus callosum, pituitary and pineal glands are normal. The craniocervical junction is normal. The superior sagittal sinus demonstrates normal flow voids. There is no evidence of cortical dysplasia, polymicrogyria, rice matter heterotopia or other types of cortical developmental malformation. The hippocampi are symmetric in size and normal in signal intensity. There is no evidence of mesial temporal sclerosis. The visualized portions of the scalp and calvarium are unremarkable. The posterior fossa is normal. The visualized portions of globes, orbits, paranasal sinuses and mastoids are normal. There are normal flow voids in the visualized intracranial arteries. IMPRESSION 1. Normal brain MRI. No MRI findings to explain seizures. Ashok Gunn MD MR ORDERABLES * EEG (12/13/2013 12:00 PM CDT) 12/13/2013 12:0 0 PM CDT Narrative Transcriptions Jace Atkinson MD - 12/13/2013 1:12 PM [address]T [address] [id number] CLINICAL NEUROPHYSIOLOGY NAME: PRINCE COLE : 2000 AD[address]: [address] [place] [address] , [place] [address] UNIT #: [id number] CSN #: [id number] DATE OF TEST: 12/13/2013 LIVING NURSE: JACE ATKINSON MD A 48 minute record in wakefulness and light sleep, with photicstimulation, on an almost 14-year-old boy, 12 hours following 2 closelyspaced, brief alterations in awareness with rightward versive movementsand twitching of the right side of the face. He had received lorazepam 12hours before the recording. The record in what appears to be full wakefulness shows a medium amplitude(30-50 microvolts in bipolar montages), semi rhythmic, symmetric andcontinuous background, with good anteroposterior gradient, and reactiveposterior patterns in the 8-9 hertz range. More anteriorly, there arelower amplitude, less rhythmic, mixed patterns. In light drowsiness,vertex waves and spindles were synchronous and symmetrical. There areoccasional (every 2-3 minutes) bursts of semi rhythmic slow waves withbilateral central predominance, and individual spike discharges that occurmost often from the right frontal electrode, occasionally with bilateralrepresentation, and rarely and specifically from the left frontalelectrode. They occur without external signs of seizure activity. Photicstimulation in wakefulness produces no change in the record. There wereno clinical signs of seizure activity during the recording. INTERPRETATION: Abnormal record, with drowsiness activated individual subclinical spikedischarges that come most often from the right frontal electrode,sometimes bilateral and rarely from the left frontal electrode. Therecord is consistent with a tendency to (possibly multifocal) seizures.We have no previous EEGs for comparison. Dictated By: JACE ATKINSON MD /Med[employer] JOB ID: [id number] CLINICAL NEUROPHYSIOLOGY Vicki Correa MD NEUROLOGY [facility] Organization Address City/State/ZIP Co de Phone Number [facility] Care Teams Grape Cutter Relationship Specialty Start Date End Date Mike Lisa MD [address] [address] PCP - General 04/17/20
--- OUTSIDE RECORDS SUMMARY | 2024-05-12 13:30 | XMS_ITS | Referral Summary ---
Author Organization [facility] Address [address] [facility] [place] [address] Care Team Providers Care Residential Subcontractor Name Role Phone Mike Lisa MD Primary Care Provider [phone] [facility],non-[facility]ates and Associated Physician Practices is amultiple site organization consisting of ambulatory clinics and hospital sitesin [place], [place], [place] and [place]. This disclosure is being madepursuant to the Care Everywhere program and may not contain all information available regarding this patient. Last updated 17.[facility] [employer] Allergies No known active allergies Medications Be [...] Mass Index 35.19 08/05/2019 11:45 AM CDT Functional Status Functional Status Response Date of Assess ment Is person deaf or have serious hearing difficult y? No 12/17/2013 Is person blind or have serious difficulty seein g? No 12/17/2013 Does person have serious dif ficulty walking/climbing stairs? No 12/17/2013 Does person have difficulty dressing/bathing? No 12/17/2013 Does person have difficulty doing errands alone? No 12/17/2013 Cognitive Status Response Date of Assessm ent Does person have difficulty concentrating/remembering/making decisions? No 12/17/2013 Plan of Treatment Not on file Care Teams Residential Subcontractor Relationship Specialty Start Date End Date Mike Lisa MD [address] [place] [address] [facility] - General 04/17/20
--- OUTSIDE RECORDS SUMMARY | 2024-05-12 13:30 | XMS_ITS | Clinical Summary ---
Author Organization [facility] Address [address] [place] [address] Care Team Providers Care Air Reduction Equipment Operator Name Role Phone Mike Lisa MD Primary Care Provider [phone] Source Comments [facility] Affiliates and Associated Physician Practices is amultiple site organization consisting of ambulatory clinics and hospital sitesin [place], [place] and [place]. This disclosure is being madepursuant to the Care Everywhere program and may not contain all information available regarding this patient. Last updated 17.[facility] [employer] Allergies No known active allergies Medications Be [...] Mass Index 35.19 08/05/2019 11:45 AM CDT Plan of Treatment Health Maintenance Due Date Last Done Comments HIV SCREENING 2013 HPV VACCINE (1 - Male 3-dose series) 2013 HEPATITIS C SCREENING 03/28/2016 DTAP/TDAP/TD VACCINES (1 - Tdap) 2017 HEPATITIS B VACCINE (1 of 3 - 19+ 3-dose series) 2017 COVID-19 VACCINE (1 - 2023-2 5 season) 2023 INFLUENZA VACCINE (#1) 2023 DEPRESSION SCREENING 03/29/2024 ZOSTER VACCINE (1 of 2) 2048 HIB VACCINE Aged Out No longer eligi ble based on patient's age to complete this topic MENINGOCOCCAL (Group B) VACCINE Aged Out No longer eligible based on patient's age to complete this topic MENINGOCOCCAL VACCINE Aged Out No veronika arlin eligible based on patient's age to complete this topic PNEUMOCOCCAL VACCINE Aged Out No long er eligible based on patient's age to complete this topic Care Teams Air Reduction Equipment Operator Relationship Specialty Start Date End Date Mike Lisa MD [address] [place] [address] PCP - General 04/17/20
--- NOTE | 2024-05-12 14:41 | ED.MALEGU ---
HPI - Male Genitourinary General Chief complaint: Urogenital-Male <Lexi Bañuelos PA-C - Last Filed: 05/12/24 18:06> Stated complaint: flank pain <Lexi Bañuelos PA-C - Last Filed: 05/12/24 18:06> Time Seen by Provider: 05/12/24 19:08 <Lexi Bañuelos PA-C - Last Filed: 05/12/24 18:06> Focused HPI: 24 y/o M presents to the ED for concerns for kidney stones or pyelonephritis. Pt went to prior to coming to arrival and had an abnormal urinalysis. He was sent to the ED to rule out a kidney stone. Reporting pain to the right flank for 1 day with associated nausea and vomiting. No abdominal pain or dysuria. Unsure if he has had hematuria because he has been taking azo. No history of kidney stones. GENERAL: Well-appearing, well-nourished, and in no acute distress. HEAD: Normocephalic, atraumatic. CHEST: Clear to auscultation. ?No respiratory distress. HEART: Regular rate and rhythm.? NEURO: ?Alert and oriented x3. Patient screened in triage and initial orders placed.? ?Additional care and disposition to be based upon?diagnostic testing and treatment. <Lexi Bañuelos PA-C - Last Filed: 05/12/24 18:06> Focused HPI: 24 y/o M presents to the ED for concerns for kidney stones or pyelonephritis. Pt went to prior to coming to arrival and had an abnormal urinalysis. He was sent to the ED to rule out a kidney stone. Reporting pain to the right flank for 1 day with associated nausea and vomiting. No abdominal pain or dysuria. Unsure if he has had hematuria because he has been taking azo. No history of kidney stones. GENERAL: Well-appearing, well-nourished, and in no acute distress. HEAD: Normocephalic, atraumatic. CHEST: Clear to auscultation. ?No respiratory distress. HEART: Regular rate and rhythm.? NEURO: ?Alert and oriented x3. Patient screened in triage and initial orders placed.? ?Additional care and disposition to be based upon?diagnostic testing and treatment. <Crista Deutsch PA-C - Last Filed: 05/12/24 21:46> Source: patient <Crista Deutsch PA-C - Last Filed: 05/12/24 21:46> Mode of arrival: ambulatory <Crista Deutsch PA-C - Last Filed: 05/12/24 21:46> Limitations: no limitations <Crista Deutsch PA-C - Last Filed: 05/12/24 21:46> History of Present Illness HPI Narrative: Agree with above HPI. Denies any fever. Currently rating pain 7/10. Has not taken anything for pain since early this morning. No previous history of kidney stones, though father has history of this. <Crista Deutsch PA-C - Last Filed: 05/12/24 21:46> Related Data Home medications: Home Medications ?Medication ?Instructions ?Recorded ?Confirmed ?Last Taken ?Type cetirizine 10 mg tablet 10 mg PO QHS 10/31/19 01/18/24 02/22/23 History <Lexi Bañuelos PA-C - Last Filed: 05/12/24 18:06> Allergies/Adverse reactions: Allergies Allergy/AdvReac Type Severity Reaction Status Date / Time cat dander Allergy Mild Sneezing/WH Verified 03/08/24 16:09 EEZING <Lexi Bañuelos PA-C - Last Filed: 05/12/24 18:06> Review of Systems Review of Systems: All systems reviewed & are unremarkable except as noted in HPI. 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 Achilles tendinitis of left lower extremity Anxiety Depression BMI 40.0-44.9, adult History of asthma History of seizures Acne Seasonal allergies Seizure <Lexi Bañuelos PA-C - Last Filed: 05/12/24 18:06> Surgical History Surgical History: Surgical History Hx laparoscopic cholecystectomy 04/16/20 Sabina teeth extracted <Lexi Bañuelos PA-C - Last Filed: 05/12/24 18:06> Family History Family History: Family History Father ADHD Mother ADHD <Lexi Bañuelos PA-C - Last Filed: 05/12/24 18:06> Social History Social History: Social History Smoking status: Never smoker Second hand tobacco smoke exposure: No Alcohol intake: current Alcohol use details: rare Substance use: never Substance use type: does not use Current Housing: Decline to Answer Concerned About Future Housing: Decline to Answer Difficulty Paying Gas/Electric Bills: Decline to Answer Difficulty Paying for Meds: Decline to Answer Currently Unemployed: Decline to Answer Education: Decline to Answer Difficulty w/ Childcare or Family Care: Decline to Answer Living arrangements: with family Gender identity (if verbalized by the patient): Male Spiritual care concerns: No <Lexi Bañuelos PA-C - Last Filed: 05/12/24 18:06> Exam Narrative: GENERAL: Well appearing, morbidly obese with BMI of 43.4, non-toxic, in no acute distress. HEAD: Normocephalic, atraumatic. RESPIRATORY: Airway patent, respirations nonlabored. Clear to auscultation bilaterally, no rales, rhonchi, wheezing. CARDIOVASCULAR: Regular rate and rhythm without murmurs, rubs, or gallops. ABDOMINAL: Soft, no significant tenderness throughout anterior abdomen, nondistended. Normoactive BS. Positive CVA tenderness on right. MUSCULOSKELETAL: Moves all extremities. No gross deformities. SKIN: Warm, dry, normal color. NEURO: A&O X3. Speech clear. Steady gait. No ataxic movements. PSYCHIATRIC: Appropriate mood and affect. Normal interaction. <Crista Deutsch PA-C - Last Filed: 05/12/24 21:46> Course [employer]NING [employer]KER AND INSTALLER/PA Physician Supervision I agree with midlevel documentation; I performed the medical decision making component of this evaluation. <Alana Sevilla MD - Last Filed: 05/12/24 22:35> Vital Signs Vital signs: Vital Signs Temperature 97.8 F 05/12/24 13:30 Pulse Rate 105 H 05/12/24 13:30 Respiratory Rate 18 05/12/24 13:30 Blood Pressure 140/62 05/12/24 13:30 Pulse Oximetry 96 05/12/24 13:30 Temperature 98.0 F 05/12/24 21:02 Pulse Rate 100 05/12/24 21:02 Respiratory Rate 20 05/12/24 21:02 Blood Pressure 136/75 05/12/24 21:02 Pulse Oximetry 94 05/12/24 21:02 Oxygen Delivery Room Air 05/12/24 21:02 <Lexi Bañuelos PA-C - Last Filed: 05/12/24 18:06> Vital Signs Temperature 97.8 F 05/12/24 13:30 Pulse Rate 105 H 05/12/24 13:30 Respiratory Rate 18 05/12/24 13:30 Blood Pressure 140/62 05/12/24 13:30 Pulse Oximetry 96 05/12/24 13:30 Temperature 98.0 F 05/12/24 21:02 Pulse Rate 100 05/12/24 21:02 Respiratory Rate 20 05/12/24 21:02 Blood Pressure 136/75 05/12/24 21:02 Pulse Oximetry 94 05/12/24 21:02 Oxygen Delivery Room Air 05/12/24 21:02 <Crista Deutsch PA-C - Last Filed: 05/12/24 21:46> Vital Signs Temperature 97.8 F 05/12/24 13:30 Pulse Rate 105 H 05/12/24 13:30 Respiratory Rate 18 05/12/24 13:30 Blood Pressure 140/62 05/12/24 13:30 Pulse Oximetry 96 05/12/24 13:30 Temperature 98.0 F 05/12/24 21:02 Pulse Rate 100 05/12/24 21:02 Respiratory Rate 20 05/12/24 21:02 Blood Pressure 136/75 05/12/24 21:02 Pulse Oximetry 94 05/12/24 21:02 Oxygen Delivery Room Air 05/12/24 21:02 <Alana Sevilla MD - Last Filed: 05/12/24 22:35> MDM - Male Genitourinary MDM Narrative Medical decision making narrative: MSE by MARS in triage. Upon my evaluation, patient is in no acute distress. He is reporting 7/10 pain, but it is resting comfortably. Vital signs remain stable. Cbc with white blood cell count of 14.2. Patient did report vomiting prior to arrival. Potentially reactive from this. CMP is unremarkable. Kidney function is stable. Urine with 1+ ketones, positive nitrate, 1+ leuk esterase, greater than 100 RBC. No WBC. No urine bacteria seen. This was sent for culture. CT scan of abdomen/pelvis was obtained and showing 6 mm proximal ureteral stone, right-sided hydroureteronephrosis. Discussed lab and imaging findings with patient. He reports pain is manageable at this time, but does seem to be slightly increasing. Will give dose of pain medicine in the ED. Patient would prefer to go home and follow-up with urology as an outpatient. Will discuss with urology. Discussed case with Dr. Mina, urology, initially agreed with plan for discharge home, recommended antibiotics for positive nitrate urine. After reviewing images herself, Dr. Mina called back and did recommend admission overnight for ureteral stent placement tomorrow given size/location of stone, potentially infectious urine. Discussed this with patient and family. They are in agreement with plan and admission. Will start Rocephin, fluids. NPO at midnight. KUB obtained. prn meds ordered. Discussed case with Dr. Guevara, hospitalist, accepted patient for admission. <Crista Deutsch PA-C - Last Filed: 05/12/24 21:46> Medical Records Attestation: I reviewed the patient's medical records. <Crista Deutsch PA-C - Last Filed: 05/12/24 21:46> Lab Data Attestation: I reviewed the patient's lab results. <Crista Deutsch PA-C - Last Filed: 05/12/24 21:46> Result diagrams: 05/12/24 15:58 05/12/24 15:58 <Lexi Bañuelos PA-C - Last Filed: 05/12/24 18:06> Labs: Lab Results 05/12/24 05/12/24 Range/Units 15:52 15:58 WBC 14.2 H (4.5-10.0) K/mm3 RBC 5.27 (4.6-6.20) M/mm3 Hgb 14.1 (14.0-18.0) g/dL Hct 43.4 (42.0-52.0) % MCV 82.4 (80-100) fl MCH 26.8 (26-34) pg MCHC 32.5 (32-36) g/dl RDW 13.4 (11.5-14.5) % Plt Count 271 (150-375) k/mm3 MPV 10.1 (7.4-10.4) fl Immature Gran % (Auto) 0.3 (0-0.5) % Neut % (Auto) 86.3 H (45.5-73.1) % Lymph % (Auto) 7.3 L (18.3-44.2) % Garden % (Auto) 5.7 (2.6-8.5) % Eos % (Auto) 0.1 (0-4.4) % Baso % (Auto) 0.3 (0.2-1.2) % Lymph # (Auto) 1.04 (0.9-3.2) K/mm3 Garden # (Auto) 0.8 H (0.1-0.6) K/mm3 Eos # (Auto) 0.0 (0-0.3) K/mm3 Baso # (Auto) 0.0 (0.0-0.1) K/mm3 Abs Immat Gran (auto) 0.04 H (0.00-0.031) K/mm3 Absolute Neuts (auto) 12.3 H (1.3-6.7) K/mm3 Absolute Nucleated RBC 0.000 (0.0-0.012) K/mm3 Nucleated RBC % 0.0 (0.0-0.2) % Sodium 138 (137-145) mmol/L Potassium 3.8 (3.4-5.0) mmol/L Chloride 102 (98-107) mmol/L Carbon Dioxide 23 (22-30) mmol/L Anion Gap 13 H (4-12) mmol/L BUN 9 (9-20) mg/dL Creatinine 1.04 (0.7-1.3) mg/dL Estim Creat Clear Calc 117 ml/min Estimated GFR > 60 (59 - ) Glucose 109 (65-110) mg/dL Calcium 9.5 (8.4-10.2) mg/dL Total Bilirubin 0.8 (0.2-1.3) mg/dL AST 58 (17-59) U/L ALT 55 H (6-50) U/L Alkaline Phosphatase 96 (38-126) U/L Total Protein 8.0 (6.3-8.2) g/dL Albumin 4.4 (3.5-5.1) g/dL Urine Color Dark yellow (Yellow) Urine Appearance Turbid H (Clear) Urine pH 6.5 (5.0-9.0) Ur Specific [place] 1.028 (1.001-1.035) Urine Protein 1+ H (Negative) mg/dL Urine Glucose (UA) Negative (Negative) mg/dL Urine Ketones 1+ H (Negative) mg/dL Ur Blood (Man) 3+ H (Negative) Urine Nitrate Positive H (Negative) Urine Bilirubin 1+ H (Negative) Urine Urobilinogen 1.0 (<2.0) mg/dL Add Ur Microanalysis Reviewed Leukocyte Esterase Rfl 1+ H (Negative) DENITA/UL Urine RBC >100 H (0-2) /hpf Urine WBC 0-5 (0-3) /hpf Ur Squamous Epith Cells None seen (Few) /hpf Calcium Oxalate Crystal Present (None) /hpf Urine Bacteria None seen /hpf Urine Casts 0-2 <Lexi Bañuelos PA-C - Last Filed: 05/12/24 18:06> Lab Results 05/12/24 05/12/24 Range/Units 15:52 15:58 WBC 14.2 H (4.5-10.0) K/mm3 RBC 5.27 (4.6-6.20) M/mm3 Hgb 14.1 (14.0-18.0) g/dL Hct 43.4 (42.0-52.0) % MCV 82.4 (80-100) fl MCH 26.8 (26-34) pg MCHC 32.5 (32-36) g/dl RDW 13.4 (11.5-14.5) % Plt Count 271 (150-375) k/mm3 MPV 10.1 (7.4-10.4) fl Immature Gran % (Auto) 0.3 (0-0.5) % Neut % (Auto) 86.3 H (45.5-73.1) % Lymph % (Auto) 7.3 L (18.3-44.2) % Garden % (Auto) 5.7 (2.6-8.5) % Eos % (Auto) 0.1 (0-4.4) % Baso % (Auto) 0.3 (0.2-1.2) % Lymph # (Auto) 1.04 (0.9-3.2) K/mm3 Garden # (Auto) 0.8 H (0.1-0.6) K/mm3 Eos # (Auto) 0.0 (0-0.3) K/mm3 Baso # (Auto) 0.0 (0.0-0.1) K/mm3 Abs Immat Gran (auto) 0.04 H (0.00-0.031) K/mm3 Absolute Neuts (auto) 12.3 H (1.3-6.7) K/mm3 Absolute Nucleated RBC 0.000 (0.0-0.012) K/mm3 Nucleated RBC % 0.0 (0.0-0.2) % Sodium 138 (137-145) mmol/L Potassium 3.8 (3.4-5.0) mmol/L Chloride 102 (98-107) mmol/L Carbon Dioxide 23 (22-30) mmol/L Anion Gap 13 H (4-12) mmol/L BUN 9 (9-20) mg/dL Creatinine 1.04 (0.7-1.3) mg/dL Estim Creat Clear Calc 117 ml/min Estimated GFR > 60 (59 - ) Glucose 109 (65-110) mg/dL Calcium 9.5 (8.4-10.2) mg/dL Total Bilirubin 0.8 (0.2-1.3) mg/dL AST 58 (17-59) U/L ALT 55 H (6-50) U/L Alkaline Phosphatase 96 (38-126) U/L Total Protein 8.0 (6.3-8.2) g/dL Albumin 4.4 (3.5-5.1) g/dL Urine Color Dark yellow (Yellow) Urine Appearance Turbid H (Clear) Urine pH 6.5 (5.0-9.0) Ur Specific [place] 1.028 (1.001-1.035) Urine Protein 1+ H (Negative) mg/dL Urine Glucose (UA) Negative (Negative) mg/dL Urine Ketones 1+ H (Negative) mg/dL Ur Blood (Man) 3+ H (Negative) Urine Nitrate Positive H (Negative) Urine Bilirubin 1+ H (Negative) Urine Urobilinogen 1.0 (<2.0) mg/dL Add Ur Microanalysis Reviewed Leukocyte Esterase Rfl 1+ H (Negative) DENITA/UL Urine RBC >100 H (0-2) /hpf Urine WBC 0-5 (0-3) /hpf Ur Squamous Epith Cells None seen (Few) /hpf Calcium Oxalate Crystal Present (None) /hpf Urine Bacteria None seen /hpf Urine Casts 0-2 <Crista Deutsch PA-C - Last Filed: 05/12/24 21:46> Lab Results 05/12/24 05/12/24 Range/Units 15:52 15:58 WBC 14.2 H (4.5-10.0) K/mm3 RBC 5.27 (4.6-6.20) M/mm3 Hgb 14.1 (14.0-18.0) g/dL Hct 43.4 (42.0-52.0) % MCV 82.4 (80-100) fl MCH 26.8 (26-34) pg MCHC 32.5 (32-36) g/dl RDW 13.4 (11.5-14.5) % Plt Count 271 (150-375) k/mm3 MPV 10.1 (7.4-10.4) fl Immature Gran % (Auto) 0.3 (0-0.5) % Neut % (Auto) 86.3 H (45.5-73.1) % Lymph % (Auto) 7.3 L (18.3-44.2) % Garden % (Auto) 5.7 (2.6-8.5) % Eos % (Auto) 0.1 (0-4.4) % Baso % (Auto) 0.3 (0.2-1.2) % Lymph # (Auto) 1.04 (0.9-3.2) K/mm3 Garden # (Auto) 0.8 H (0.1-0.6) K/mm3 Eos # (Auto) 0.0 (0-0.3) K/mm3 Baso # (Auto) 0.0 (0.0-0.1) K/mm3 Abs Immat Gran (auto) 0.04 H (0.00-0.031) K/mm3 Absolute Neuts (auto) 12.3 H (1.3-6.7) K/mm3 Absolute Nucleated RBC 0.000 (0.0-0.012) K/mm3 Nucleated RBC % 0.0 (0.0-0.2) % Sodium 138 (137-145) mmol/L Potassium 3.8 (3.4-5.0) mmol/L Chloride 102 (98-107) mmol/L Carbon Dioxide 23 (22-30) mmol/L Anion Gap 13 H (4-12) mmol/L BUN 9 (9-20) mg/dL Creatinine 1.04 (0.7-1.3) mg/dL Estim Creat Clear Calc 117 ml/min Estimated GFR > 60 (59 - ) Glucose 109 (65-110) mg/dL Calcium 9.5 (8.4-10.2) mg/dL Total Bilirubin 0.8 (0.2-1.3) mg/dL AST 58 (17-59) U/L ALT 55 H (6-50) U/L Alkaline Phosphatase 96 (38-126) U/L Total Protein 8.0 (6.3-8.2) g/dL Albumin 4.4 (3.5-5.1) g/dL Urine Color Dark yellow (Yellow) Urine Appearance Turbid H (Clear) Urine pH 6.5 (5.0-9.0) Ur Specific [place] 1.028 (1.001-1.035) Urine Protein 1+ H (Negative) mg/dL Urine Glucose (UA) Negative (Negative) mg/dL Urine Ketones 1+ H (Negative) mg/dL Ur Blood (Man) 3+ H (Negative) Urine Nitrate Positive H (Negative) Urine Bilirubin 1+ H (Negative) Urine Urobilinogen 1.0 (<2.0) mg/dL Add Ur Microanalysis Reviewed Leukocyte Esterase Rfl 1+ H (Negative) DENITA/UL Urine RBC >100 H (0-2) /hpf Urine WBC 0-5 (0-3) /hpf Ur Squamous Epith Cells None seen (Few) /hpf Calcium Oxalate Crystal Present (None) /hpf Urine Bacteria None seen /hpf Urine Casts 0-2 <Alana Sevilla MD - Last Filed: 05/12/24 22:35> Imaging Data Attestation: I personally reviewed and interpreted this imaging study as follows: <Crista Deutsch PA-C - Last Filed: 05/12/24 21:46> Radiologist's impression: ITS Impressions Abdomen/Pelvis CT 05/12/24 15:29 IMPRESSION: Right-sided hydroureteronephrosis secondary to a 6 mm stone in the proximal right ureter. Fatty infiltration of an enlarged liver. Hepatosplenomegaly <Crista Deutsch PA-C - Last Filed: 05/12/24 21:46> Discharge Plan Discharge Clinical Impression: Calculus of proximal right ureter, Hydroureteronephrosis, Abnormal urinalysis <Lexi Bañuelos PA-C - Last Filed: 05/12/24 18:06> Patient Disposition: Still a Patient <IJEOMA Jamison Last Filed: 05/12/24 18:06> Condition: Stable <IJEOMA Jamison Last Filed: 05/12/24 18:06>
[2024-05-12 15:56] VITALS: BP 137/81; PULSE 101; RESP 16; TEMP 36.4; O2SAT 96
[2024-05-12 16:07] LABS: Basophils Percent Auto 0.3 % (0.2-1.2); Eosinophils Percent Auto 0.1 % (0-4.4); Hematocrit 43.4 % (42.0-52.0); Hemoglobin 14.1 g/dL (14.0-18.0); Immature Granulocyte Absolute 0.04 K/mm3 (0.00-0.031); Immature Granulocyte Percent A 0.3 % (0-0.5); Lymphocytes Absolute Auto 1.04 K/mm3 (0.9-3.2); Lymphocytes Percent Auto 7.3 % (18.3-44.2); Mean Corpuscular HGB Conc 32.5 g/dl (32-36); Mean Corpuscular Hemoglobin 26.8 pg (26-34); Mean Corpuscular Volume 82.4 fl (80-100); Mean Platelet Volume 10.1 fl (7.4-10.4); Monocytes Absolute Auto 0.8 K/mm3 (0.1-0.6); Monocytes Percent Auto 5.7 % (2.6-8.5); Neutrophils Absolute Auto 12.3 K/mm3 (1.3-6.7); Neutrophils Percent Auto 86.3 % (45.5-73.1); Platelet Count Result 271 k/mm3 (150-375); Red Blood Count 5.27 M/mm3 (4.6-6.20); Red Cell Distribution Width 13.4 % (11.5-14.5); White Blood Count 14.2 K/mm3 (4.5-10.0)
[2024-05-12 16:19] LABS: Add Urine Microscopic? YES; Appearance Urine Turbid (Clear); Bacteria Urine None Seen /hpf; Bilirubin Urine 1+ (Negative); Blood Urine 3+ (Negative); Calcium Oxalate Crystals Urine Present /hpf; Color Urine Dark Yellow (Yellow); Glucose Urine UA Negative (Negative); Ketones Urine 1+ mg/dL (Negative); Leukocyte Esterase Ur 1+ LEU/UL (Negative); Need Manual Microscopic Reviewed; Nitrate Urine Positive (Negative); Non Pathogenic Casts 0-2; Protein Urine 1+ mg/dL (Negative); RBC Urine >100 /hpf (0-2); Specific Grav Ur 1.028 (1.001-1.035); Squamous Epithelial Cell Urine None Seen /hpf (Few); WBC Urine 0-5 /hpf (0-3); pH Urine 6.5 (5.0-9.0)
[2024-05-12 16:25] LABS: Alanine Aminotransferase 55 U/L (6-50); Albumin Level 4.4 g/dL (3.5-5.1); Alkaline Phosphatase 96 U/L (38-126); Anion Gap 13 mmol/L (4-12); Aspartate Amino Transferase 58 U/L (17-59); Bilirubin,Total 0.8 mg/dL (0.2-1.3); Blood Urea Nitrogen 9 mg/dL (9-20); Calcium 9.5 mg/dL (8.4-10.2); Carbon Dioxide 23 mmol/L (22-30); Chloride 102 mmol/L (98-107); Estimated CRCL calculation 117 ml/min; Estimated Glomerular Filt Rate > 60; Glucose 109 mg/dL (65-110); Potassium 3.8 mmol/L (3.4-5.0); Sodium 138 mmol/L (137-145)
--- OUTSIDE RECORDS SUMMARY | 2024-05-12 17:45 | XMS_ITS | Clinical Summary ---
Author Organization [facility] Address [address] [place] [address] Care Team Providers Care Vein Pumper Name Role Phone Mike Lisa MD Primary Care Provider [phone] Source Comments [facility],non-[facility] Affiliates and Associated Physician Practices is amultiple site organization consisting of ambulatory clinics and hospital sitesin [place], [place], [place] and [place]. This disclosure is being madepursuant to the Care Everywhere program and may not contain all information available regarding this patient. Last updated 17.[facility] [employer] Allergies No known active allergies Medications Be [...] age to complete this topic Care Teams Vein Pumper Relationship Specialty Start Date End Date Mike Lisa MD [address] [place] [id number] PCP - General 04/17/20
--- OUTSIDE RECORDS SUMMARY | 2024-05-12 17:45 | XMS_ITS | Referral Summary ---
Author Organization [facility] Address [address] [place] [address] Care Team Providers Care Ged Instructor Name Role Phone Mike Lisa MD Primary Care Provider [phone] Source Comments [facility],non-[facility] Affiliates and Associated Physician Practices is amultiple site organization consisting of ambulatory clinics and hospital sitesin [place], [place], [place] and [place]. This disclosure is being madepursuant to the Care Everywhere program and may not contain all information available regarding this patient. Last updated 17.[facility] [employer] Allergies No known active allergies Medications Be [...] of Treatment Not on file Care Teams Ged Instructor Relationship Specialty Start Date End Date Mike Lisa MD [address] [place] [id number] [facility] - General 04/17/20
--- OUTSIDE RECORDS SUMMARY | 2024-05-12 17:45 | XMS_ITS | Patient Health Summary ---
Author Organization [facility] Address [address] [place] [address] Care Team Providers Care Vision Rehabilitation Therapist Name Role Phone Mike Lisa MD Primary Care Provider [phone] Note from [facility],non-owned Affiliates and Associated Physician Practices is amultiple site organization consisting of ambulatory clinics and hospital sitesin [place], [place], [place] and [place]. This disclosure is being madepursuant to the Care Everywhere program and may not contain all information available regarding this patient. Last updated 17.[facility] [email or web address] No known active allergies Medications Be [...] * LAB RESULTS ORDER (05/12/2016 2:18 AM FRAME TENDER) Only the most recent of2 resultswithin the time period is included. Narrative 05/12/2016 2:18 AM FRAME TENDER Ordered by an unspecified provider. Scanned Document LAB - THERAPEUTIC DR UG MONITORING ORDERABLES * TOPIRAMATE LEVEL (07/03/2015 5:08 PM CDT) Pathologist [facility] Topiramate 10.0 2.0 - 25.0 ug/mL 07/05/2015 2:25 PM CDT [facility] ([facility]) Comment:Detection Limit = 1. 0 Blood specimen (specimen) BLOOD SPECIMEN / Unknown Lab Venipuncture / Unknown 07/03/2015 5:08 PM CDT 07/03/2015 5:52 PM CDT Narrative [facility] ([facility]) - 07/05/2015 2:25 PM CDT Performed at: [address] [place] [id number] Environmental Science Instructor: Greg Bolton MD, Phone: [phone] Onofre Pinto MD LAB - THERAPEUTI C DRUG MONITORING ORDERABLES [facility] * (ABNORMAL) CBC W AUTO DIFFERENTIAL (07/03/2015 5:08 PM CDT) Only the most recent of2 resultswithin the time period is included. Pathologist [facility] WBC 9.1 4.5 - 11.0 x10E9/L 07/03/2015 6:31 PM CDT [facility] WBC Corrected x10E9/L 07/03/2015 6:31 PM CDT [facility] RBC 5.30 4.50 - 5.30 x10E12/L 07/03/2015 6:31 PM CDT [facility] Hemoglobin 13.7 13.0 - 16.0 gm/dL 07/03/2015 6:31 PM CDT [facility] Hematocrit 42.7 37.0 - 49.0 % 07/03/2015 6:31 PM CDT [facility] MCV 80.6 78.0 - 98.0 fl 07/03/2015 6:31 PM CDT [facility] MCH 25.8 25.0 - 35.0 pg 07/03/2015 6:31 PM CDT [facility] MCHC 32.1 31.0 - 37.0 gm/dL 07/03/2015 6:31 PM CDT [facility] Platelet Count 281 100 - 400 x10E9/L 07/03/2015 6:31 PM T [facility] RDW-CV 13.6 11.5 - 14.0 % 07/03/2015 6:31 PM T [facility] MPV 11.0(H) 6.0 - 9.5 fl 07/03/2015 6:31 PM T [facility] Neutrophils % 58.4 31.0 - 78.0 % 07/03/2015 6:31 PM T [facility] Lymphocytes % 32.5 13.0 - 54.0 % 07/03/2015 6:31 PM T [facility] Monocytes % 6.0 4.0 - 13.0 % 07/03/2015 6:31 PM T [facility] Eosinophils % 2.6 0.0 - 8.0 % 07/03/2015 6:31 PM T [facility] Basophils % 0.3 % 07/03/2015 6:31 PM T [facility] Immature Granulocytes 0.2 % 07/03/2015 6:31 PM T [facility] Neutrophil Absolute 5.31 x10E9/L 07/03/2015 6:31 PM T [facility] Lymphocytes Absolute 2.96 x10E9/L 07/03/2015 6:31 PM CDT [facility] Monocytes Absolute 0.55 x10E9/L 07/03/2015 6:31 PM CDT [facility] Eosinophils Absolute 0.24 x10E9/L 07/03/2015 6:31 PM T [facility] Basophils Absolute 0.03 x10E9/L 07/03/2015 6:31 PM T [facility] Immature Granulocytes Absolute 0.02 x10E9/L 07/03/2015 6:31 PM T [facility] nRBC Auto 0 /100 WBC 07/03/2015 6:31 PM T [facility] Blood BLOOD SPECIMEN / Unknown Lab Venipuncture / Unknown 07/03/2015 5:08 PM CDT 07/03/2015 5:53 PM CDT Onofre Pinto MD LAB - HEMATOLOGY ORDERABLES [facility] [address] [place] [address] * BASIC METABOLIC PANEL (CALCIUM TOTAL) (07/03/2015 5:08 PM CDT) Only the most recent of3 resultswithin the time period is included. [facility] Glucose 78 70 - 105 mg/dL 07/03/2015 7:19 PM CDT [facility] Sodium 140 136 - 145 mmol/L 07/03/2015 7:19 PM T [facility] Potassium 3.9 3.5 - 5.1 mmol/L 07/03/2015 7:19 PM T [facility] Chloride 107 98 - 107 mmol/L 07/03/2015 7:19 PM T [facility] CO2 24 20 - 28 mmol/L 07/03/2015 7:19 PM T [facility] Calcium 9.08 9.08 - 10.48 mg/dL 07/03/2015 7:19 PM T [facility] Anion Gap 9 5 - 20 mmol/L 07/03/2015 7:19 PM T [facility] BUN 8.1 5.3 - 18.7 mg/dL 07/03/2015 7:19 PM T [facility] Creatinine 0.65 0.61 - 1.07 mg/dL 07/03/2015 7:19 PM T [facility] eGFR by MDRD >60 mL/min/1.7 3m2 07/03/2015 7:19 PM T [facility] Comment: eGFR calculations are not performed for children under 18 years old. eGFR by MDRD >60 mL/min/1.7 3m2 07/03/2015 7:19 PM T [facility] Comment: eGFR calculations are not performed for children under 18 years old. Blood BLOOD SPECIMEN / Unknown Lab Venipuncture / Unknown 07/03/2015 5:08 PM CDT 07/03/2015 5:52 PM CDT Onofre Pinto MD LAB - CHEMISTRY ORDERABLES [facility] [address] [place] [address] * PHOSPHORUS BLOOD (07/03/2015 5:08 PM CDT) Only the most recent of2 resultswithin the time period is included. Phosphorus 4.53 2.76 - 5.14 mg/dL 07/03/2015 8:04 PM CDT [facility] Blood BLOOD SPECIMEN / Unknown Lab Venipuncture / Unknown 07/03/2015 5:08 PM CDT 07/03/2015 5:52 PM CDT Onofre Pinto MD LAB - CHEMISTRY ORDERABLES Performing Organization Address [facility] de Phone Number [facility] [address] [place] [phone] * (ABNORMAL) MAGNESIUM BLOOD (07/03/2015 5:08 PM CDT) Only the most recent of2 resultswithin the time period is included. Magnesium 2.6(H) 1.7 - 2.3 mg/dL 07/03/2015 8:04 PM CDT [facility] Blood BLOOD SPECIMEN / Unknown Lab Venipuncture / Unknown 07/03/2015 5:08 PM CDT 07/03/2015 5:52 PM CDT Onofre Pinto MD LAB - CHEMISTRY ORDERABLES Performing Organization Address [facility] de Phone Number [facility] [address] [place] [phone] * (ABNORMAL) VITAMIN D 25-HYDROXY (02/07/2015 5:08 PM FRAME TENDER) Vitamin D, 25 Hydroxy 8.85(L) 30 - 100 ng/mL 02/08/2015 11:31 AM FRAME TENDER [facility] Blood BLOOD SPECIMEN / Unknown Lab Venipuncture / Unknown 02/07/2015 5:08 PM FRAME TENDER 02/07/2015 6:21 PM FRAME TENDER Narrative [facility] - 02/08/2015 11:31 AM FRAME TENDER Vitamin D Status: Deficiency <20 ng/mL Insufficiency 20-30 ng/mL Sufficiency 30-100 ng/mL Toxicity >100 ng/mL Onofre Pinto MD LAB - CHEMISTRY ORDERABLES [facility] [address] [place] [address] * CARDIAC RHYTHM STRIP ORDER (12/15/2013 12:44 AM CDT) Provider Unknown CARDIAC SERVICES ORD ERABLES * DRUG ABUSE URINE PANEL (12/13/2013 5:16 PM CDT) Amphetamines Screen Urine Not Detected Not Detected 12/13/2013 5:44 PM CDT [facility] Barbiturates Screen Urine Not Detected Not Detected 12/13/2013 5:44 PM CDT [facility] Benzodiazepines Screen Urine Not Detected Not Detected 12/13/2013 5:44 PM CDT [facility] Cannabinoids Screen Urine Not Detected Not Detected 12/13/2013 5:44 PM CDT [facility] Cocaine Screen Urine Not Detected Not Detected 12/13/2013 5:44 PM CDT [facility] Opiate Screen Urine Not Detected Not Detected 12/13/2013 5:44 PM CDT [facility] Phencyclidine Screen Urine Not Detected Not Detected 12/13/2013 5:44 PM CDT [facility] Urine URINE / Unknown 12/13/2013 5 :16 PM CDT 12/13/2013 5:21 PM CDT Narrative [facility] - 12/13/2013 5:44 PM CDT [...] MD LAB - URINE CHEMISTR Y ORDERABLES [facility] [address] [place] [address] * MRI BRAIN WITH AND WITHOUT CONTRAST [...] Atkinson MD - 12/13/2013 1:12 PM CDT [address] [phone] CLINICAL NEUROPHYSIOLOGY NAME: PRINCE COLE : 2000 AD[address]ESS: [address] [place] [address] , [place] [address] UNIT #: [id number] CSN #: [id number] DATE OF TEST: 12/13/2013 [employer] UN[employer]: JACE ATKINSON MD A 48 minute record [...] By: JACE ATKINSON MD /MedQ JOB ID: [id number] CLINICAL NEUROPHYSIOLOGY Vicki Correa MD NEUROLOGY [facility] Organization Address City/State/ZIP Co de Phone Number [facility] Care Teams Vision Rehabilitation Therapist Relationship Specialty Start Date End Date Mike Lisa MD [address] [address] PCP - General 04/17/20
[2024-05-12] MEDS: oxyCODONE HCL (*CRX) 5 MG TAB IR PO (19:40)
[2024-05-12] MEDS: ACETAMINOPHEN 500 MG TABLET 1000 MG PO (19:41)
--- NOTE | 2024-05-12 19:47 | PC.NURSE ---
Pt received PO Tylenol and oxycodone by this RN. Pt vomited a few minutes after taking medications. LEONARDO Tobin notified at this time.
[2024-05-12] MEDS: ONDANSETRON HCL ODT 4 MG TABLET PO (19:53)
[2024-05-12 21:02] VITALS: BP 136/75; PULSE 100; RESP 20; TEMP 36.7; O2SAT 94
[2024-05-12] MEDS: SODIUM CHLORIDE 0.9% IV 1,000 ML 999 ML IV CONT (21:04)
[2024-05-12] MEDS: MORPHINE SULFATE (*CRX) 4 MG/ML INJ IV PUSH (21:05)
--- NOTE | 2024-05-12 22:35 | PC.NURSE ---
mari Mcclendon PA-C for patient to take his home medications. Patient's family member brought home meds. Home meds are Zohemiside 300mg, leptrium 1500mg, sertraline 100mg, and cetrizine 10mg. Patient took meds at 2235 with water.
[2024-05-13] VITALS (12 sets, daily range): BP systolic 130–149; BP diastolic 65–89; PULSE 87–103; RESP 13–20; TEMP 36.3–37.1; O2SAT 90–99; BMI 43.7
[2024-05-13] MEDS: HYDROmorphone HCL INJ (*CRX) 1 MG/ML SYR IV PUSH (00:27)
[2024-05-13] MEDS: SODIUM CHLORIDE 0.9% IV 1,000 ML 100 ML IV CONT (00:27)
--- OUTSIDE RECORDS SUMMARY | 2024-05-13 00:48 | XMS_ITS | Clinical Summary ---
Author Organization [facility] Address [address] [facility] [place] [address] Care Team Providers Care Regulatory Compliance Coordinator Name Role Phone Mike Lisa MD Primary Care Provider [phone] Source Comments [facility],non-[facility] Affiliates and Associated Physician Practices is amultiple site organization consisting of ambulatory clinics and hospital sitesin [place], [place], [place] and [place]. This disclosure is being madepursuant to the Care Everywhere program and may not contain all information available regarding this patient. Last updated 17.[facility] [employer] Allergies No known active allergies Medications Be [...] age to complete this topic Care Teams Regulatory Compliance Coordinator Relationship Specialty Start Date End Date Mike Lisa MD [address] [place] [id number] PCP - General 04/17/20
--- OUTSIDE RECORDS SUMMARY | 2024-05-13 00:48 | XMS_ITS | Patient Health Summary ---
Author Organization [facility] Address [address] [place] [address] Care Team Providers Care Rn Travel Name Role Phone Mike Lisa MD Primary Care Provider [phone] [facility],non-owned Affiliates and Associated Physician Practices is amultiple site organization consisting of ambulatory clinics and hospital sitesin [place], [place], [place] and [place]. This disclosure is being madepursuant to the Care Everywhere program and may not contain all information available regarding this patient. Last updated 17.[facility] Where Was it Filmed Allergies No known active allergies Medications Be [...] * LAB RESULTS ORDER (05/12/2016 2:18 AM REGISTERED PUBLIC SURVEYOR) Only the most recent of2 resultswithin the time period is included. Narrative 05/12/2016 2:18 AM REGISTERED PUBLIC SURVEYOR Ordered by an unspecified provider. Scanned Document LAB - THERAPEUTIC DR UG MONITORING ORDERABLES * TOPIRAMATE LEVEL (07/03/2015 5:08 PM CDT) Pathologist [facility] Topiramate 10.0 2.0 - 25.0 ug/mL 07/05/2015 2:25 PM CDT [facility] ([facility]) Comment:Detection Limit = 1. 0 Blood specimen (specimen) BLOOD SPECIMEN / Unknown Lab Venipuncture / Unknown 07/03/2015 5:08 PM CDT 07/03/2015 5:52 PM CDT Narrative [facility] ([facility]) - 07/05/2015 2:25 PM CDT Performed at: [address] [place] [id number] Hazardous Materials Handler: Greg Bolton MD, Phone: [phone] Onofre Pinto MD LAB - THERAPEUTI C DRUG MONITORING [facility]ABLES [facility] * (ABNORMAL) CBC W AUTO DIFFERENTIAL (07/03/2015 5:08 PM CDT) Only the most recent of2 resultswithin the time period is included. Pathologist [facility] WBC 9.1 4.5 - 11.0 x10E9/L 07/03/2015 6:31 PM CDT [facility] WBC Corrected x10E9/L 07/03/2015 6:31 PM CDT [facility] RBC 5.30 4.50 - 5.30 x10E12/L 07/03/2015 6:31 PM CDT [facility] Hemoglobin 13.7 13.0 - 16.0 gm/dL 07/03/2015 6:31 PM CDT [facility] Hematocrit 42.7 37.0 - 49.0 % 07/03/2015 6:31 PM CDT [facility] MCV 80.6 78.0 - 98.0 fl 07/03/2015 6:31 PM CDT [facility] MCH 25.8 25.0 - 35.0 pg 07/03/2015 6:31 PM CDT [facility] MCHC 32.1 31.0 - 37.0 gm/dL 07/03/2015 6:31 PM CDT [facility] Platelet Count 281 100 - 400 x10E9/L 07/03/2015 6:31 PM T [facility] RDW-CV 13.6 11.5 - 14.0 % 07/03/2015 6:31 PM T [facility] MPV 11.0(H) 6.0 - 9.5 fl 07/03/2015 6:31 PM T [facility] Neutrophils % 58.4 31.0 - 78.0 % 07/03/2015 6:31 PM T [facility] Lymphocytes % 32.5 13.0 - 54.0 % 07/03/2015 6:31 PM T [facility] Monocytes % 6.0 4.0 - 13.0 % 07/03/2015 6:31 PM T [facility] Eosinophils % 2.6 0.0 - 8.0 % 07/03/2015 6:31 PM T [facility] Basophils % 0.3 % 07/03/2015 6:31 PM T [facility] Immature Granulocytes 0.2 % 07/03/2015 6:31 PM T [facility] Neutrophil Absolute 5.31 x10E9/L 07/03/2015 6:31 PM T [facility] Lymphocytes Absolute 2.96 x10E9/L 07/03/2015 6:31 PM CDT [facility] Monocytes Absolute 0.55 x10E9/L 07/03/2015 6:31 PM CDT [facility] Eosinophils Absolute 0.24 x10E9/L 07/03/2015 6:31 PM T [facility] Basophils Absolute 0.03 x10E9/L 07/03/2015 6:31 PM T [facility] Immature Granulocytes Absolute 0.02 x10E9/L 07/03/2015 6:31 PM T [facility] nRBC Auto 0 /100 WBC 07/03/2015 6:31 PM T [facility] Blood BLOOD SPECIMEN / Unknown Lab Venipuncture / Unknown 07/03/2015 5:08 PM CDT 07/03/2015 5:53 PM CDT Onofre Pinto MD LAB - HEMATOLOGY ORDERABLES [facility] [address] [place] [address] * BASIC METABOLIC PANEL (CALCIUM TOTAL) (07/03/2015 5:08 PM CDT) Only the most recent of3 resultswithin the time period is included. [facility] Glucose 78 70 - 105 mg/dL 07/03/2015 7:19 PM CDT [facility] Sodium 140 136 - 145 mmol/L 07/03/2015 7:19 PM T [facility] Potassium 3.9 3.5 - 5.1 mmol/L 07/03/2015 7:19 PM T [facility] Chloride 107 98 - 107 mmol/L 07/03/2015 7:19 PM T [facility] CO2 24 20 - 28 mmol/L 07/03/2015 7:19 PM T [facility] Calcium 9.08 9.08 - 10.48 mg/dL 07/03/2015 7:19 PM T [facility] Anion Gap 9 5 - 20 mmol/L 07/03/2015 7:19 PM T [facility] BUN 8.1 5.3 - 18.7 mg/dL 07/03/2015 7:19 PM T [facility] Creatinine 0.65 0.61 - 1.07 mg/dL 07/03/2015 7:19 PM T [facility] eGFR by MDRD >60 mL/min/1.7 3m2 07/03/2015 7:19 PM T [facility] Comment: eGFR calculations are not performed for children under 18 years old. eGFR by MDRD >60 mL/min/1.7 3m2 07/03/2015 7:19 PM T [facility] Comment: eGFR calculations are not performed for children under 18 years old. Blood BLOOD SPECIMEN / Unknown Lab Venipuncture / Unknown 07/03/2015 5:08 PM CDT 07/03/2015 5:52 PM CDT Onofre Pinto MD LAB - CHEMISTRY ORDERABLES [facility] [address] [place] [address] * PHOSPHORUS BLOOD (07/03/2015 5:08 PM CDT) Only the most recent of2 resultswithin the time period is included. Phosphorus 4.53 2.76 - 5.14 mg/dL 07/03/2015 8:04 PM CDT [facility] Blood BLOOD SPECIMEN / Unknown Lab Venipuncture / Unknown 07/03/2015 5:08 PM CDT 07/03/2015 5:52 PM CDT Onofre Pinto MD LAB - CHEMISTRY ORDERABLES Performing Organization Address [facility] de Phone Number [facility] [address] [place] [phone] * (ABNORMAL) MAGNESIUM BLOOD (07/03/2015 5:08 PM CDT) Only the most recent of2 resultswithin the time period is included. Magnesium 2.6(H) 1.7 - 2.3 mg/dL 07/03/2015 8:04 PM CDT [facility] Blood BLOOD SPECIMEN / Unknown Lab Venipuncture / Unknown 07/03/2015 5:08 PM CDT 07/03/2015 5:52 PM CDT Onofre Pinto MD LAB - CHEMISTRY ORDERABLES Performing Organization Address [facility] de Phone Number [facility] [address] [place] [phone] * (ABNORMAL) VITAMIN D 25-HYDROXY (02/07/2015 5:08 PM REGISTERED PUBLIC SURVEYOR) Vitamin D, 25 Hydroxy 8.85(L) 30 - 100 ng/mL 02/08/2015 11:31 AM REGISTERED PUBLIC SURVEYOR [facility] Blood BLOOD SPECIMEN / Unknown Lab Venipuncture / Unknown 02/07/2015 5:08 PM REGISTERED PUBLIC SURVEYOR 02/07/2015 6:21 PM REGISTERED PUBLIC SURVEYOR Narrative [facility] - 02/08/2015 11:31 AM REGISTERED PUBLIC SURVEYOR Vitamin D Status: Deficiency <20 ng/mL Insufficiency 20-30 ng/mL Sufficiency 30-100 ng/mL Toxicity >100 ng/mL Onofre Pinto MD LAB - CHEMISTRY ORDERABLES [facility] [address] [place] [address] * CARDIAC RHYTHM STRIP ORDER (12/15/2013 12:44 AM CDT) Provider Unknown CARDIAC SERVICES ORD ERABLES * DRUG ABUSE URINE PANEL (12/13/2013 5:16 PM CDT) Amphetamines Screen Urine Not Detected Not Detected 12/13/2013 5:44 PM CDT [facility] Barbiturates Screen Urine Not Detected Not Detected 12/13/2013 5:44 PM CDT [facility] Benzodiazepines Screen Urine Not Detected Not Detected 12/13/2013 5:44 PM CDT [facility] Cannabinoids Screen Urine Not Detected Not Detected 12/13/2013 5:44 PM CDT [facility] Cocaine Screen Urine Not Detected Not Detected 12/13/2013 5:44 PM CDT [facility] Opiate Screen Urine Not Detected Not Detected 12/13/2013 5:44 PM CDT [facility] Phencyclidine Screen Urine Not Detected Not Detected 12/13/2013 5:44 PM CDT [facility] Urine URINE / Unknown 12/13/2013 5 :16 PM CDT 12/13/2013 5:21 PM CDT Narrative [facility] - 12/13/2013 5:44 PM [...] MD LAB - URINE CHEMISTR Y ORDERABLES [facility] [address] [place] [address] * MRI BRAIN WITH AND WITHOUT CONTRAST [...] Atkinson MD - 12/13/2013 1:12 PM CDT [address] [id number] CLINICAL NEUROPHYSIOLOGY NAME: PRINCE COLE : 2000 AD[address]: [address] [place] [address] , [place] [address] UNIT #: [id number] CSN #: [id number] DATE OF TEST: 12/13/2013 POLE FRAME CONSTRUCTION WORKER: JACE ATKINSON MD A 48 minute record [...] By: JACE ATKINSON MD /MedQ JOB ID: [id number] CLINICAL NEUROPHYSIOLOGY Vicki Correa MD [facility] Organization Address City/State/ZIP Co de Phone Number [facility] Care Teams Rn Travel Relationship Specialty Start Date End Date Mike Lisa MD [address] [place] [address] PCP - General 04/17/20
--- OUTSIDE RECORDS SUMMARY | 2024-05-13 00:48 | XMS_ITS | Referral Summary ---
Author Organization [facility] Address [address] [place] [address] Care Team Providers Care Site Acquisition Manager Name Role Phone Mike Lisa MD Primary Care Provider [phone] Source Comments [facility],non-[facility] Affiliates and Associated Physician Practices is amultiple site organization consisting of ambulatory clinics and hospital sitesin [place], [place], [place] and [place]. This disclosure is being madepursuant to the Care Everywhere program and may not contain all information available regarding this patient. Last updated 17.[facility] [place] Allergies No known active allergies Medications Be [...] of Treatment Not on file Care Teams Site Acquisition Manager Relationship Specialty Start Date End Date Mike Lisa MD [address] [place] [address] [facility] - General 04/17/20
--- NOTE | 2024-05-13 01:39 | ADMGEN ---
This patient, Prince Finn II II, was admitted to [facility] Surg Room 303-01. Patient/family oriented to hospital policies and general routines including ID bracelet, bed and alarms, visiting hours, pain management, procedures, bathroom and other care routines, personal items, smoking policy, room service/diet, and visiting hours. Information on how to activate the Rapid Response Team has been discussed. Patient/Family are encouraged to report perceived risks to care and to ask questions if they do not understand what they are told or what they should do.
--- NOTE | 2024-05-13 08:04 | P.PNAN_ITS ---
Anes - Initial Pre Proc Eval Procedure: Operation Date: 05/13/24 09:00 Proposed Procedures p Cystoscopy with Right Stent Placement(Right) - Chantel Mnia MD Date/Time: 05/13/24 08:04 Surgeon: Jenifer Guevara DO Pre Op Diagnosis: R proximal ureteral atone Patient Data Age: 24 Gender: M Height: 1.68 m Weight: 123 kg Last Vital Signs Temp 37.1 C 05/13/24 06:00 Pulse 88 05/13/24 06:00 Resp 18 05/13/24 06:00 BP 138/65 05/13/24 06:00 Pulse Ox 99 05/13/24 06:00 O2 Del Method Room Air 05/12/24 21:02 Allergies Allergy/AdvReac Type Severity Reaction Status Date / Time cat dander Allergy Mild Sneezing/WH Verified 03/08/24 16:09 EEZING Home Medications ?Medication ?Instructions ?Recorded ?Confirmed ?Type cetirizine 10 mg tablet 10 mg PO QHS 10/31/19 05/13/24 History diazepam 20 mg/2 spray (10 mg/0.1 20 mg (0.2 mL) intranasal ONCE PRN 02/03/23 05/13/24 Rx mL x 2) nasal spray (Valtoco) seizure > 5 minutes #2 sprays sertraline 100 mg tablet 100 mg PO QHS #90 tabs 11/22/23 05/13/24 Rx levetiracetam 750 mg 1,500 mg (2 x 750 mg) PO DAILY 03/08/24 05/13/24 Rx tablet,extended release 24 hr #180 tabs (Keppra XR) zonisamide 100 mg capsule 300 mg (3 x 100 mg) PO DAILY #90 05/11/24 05/13/24 Rx caps cephalexin 500 mg capsule 500 mg PO Q6H 7 days #28 caps 05/12/24 Rx ondansetron 4 mg disintegrating 4 mg PO Q8H PRN nausea and 05/12/24 Rx tablet vomiting #15 tabs oxycodone 5 mg tablet 5 mg PO Q6H PRN pain #20 tabs 05/12/24 Rx tamsulosin 0.4 mg capsule (Flomax) 0.4 mg PO DAILY #10 caps 05/12/24 Rx Laboratory Tests 05/12/24 05/12/24 15:52 15:58 WBC 14.2 H K/mm3 (4.5-10.0) RBC 5.27 M/mm3 (4.6-6.20) Hgb 14.1 g/dL (14.0-18.0) Hct 43.4 % (42.0-52.0) MCV 82.4 fl (80-100) MCH 26.8 pg (26-34) MCHC 32.5 g/dl (32-36) RDW 13.4 % (11.5-14.5) Plt Count 271 k/mm3 (150-375) MPV 10.1 fl (7.4-10.4) Immature Gran % (Auto) 0.3 % (0-0.5) Neut % (Auto) 86.3 H % (45.5-73.1) Lymph % (Auto) 7.3 L % (18.3-44.2) [place] % (Auto) 5.7 % (2.6-8.5) Eos % (Auto) 0.1 % (0-4.4) Baso % (Auto) 0.3 % (0.2-1.2) Lymph # (Auto) 1.04 K/mm3 (0.9-3.2) [place] # (Auto) 0.8 H K/mm3 (0.1-0.6) Eos # (Auto) 0.0 K/mm3 (0-0.3) Baso # (Auto) 0.0 K/mm3 (0.0-0.1) Abs Immat Gran (auto) 0.04 H K/mm3 (0.00-0.031) Absolute Neuts (auto) 12.3 H K/mm3 (1.3-6.7) Absolute Nucleated RBC 0.000 K/mm3 (0.0-0.012) Nucleated RBC % 0.0 % (0.0-0.2) Sodium 138 mmol/L (137-145) Potassium 3.8 mmol/L (3.4-5.0) Chloride 102 mmol/L (98-107) Carbon Dioxide 23 mmol/L (22-30) Anion Gap 13 H mmol/L (4-12) BUN 9 mg/dL (9-20) Creatinine 1.04 mg/dL (0.7-1.3) Estim Creat Clear Calc 117 ml/min Estimated GFR > 60 (59 - ) Glucose 109 mg/dL (65-110) Calcium 9.5 mg/dL (8.4-10.2) Total Bilirubin 0.8 mg/dL (0.2-1.3) AST 58 U/L (17-59) ALT 55 H U/L (6-50) Alkaline Phosphatase 96 U/L (38-126) Total Protein 8.0 g/dL (6.3-8.2) Albumin 4.4 g/dL (3.5-5.1) Urine Color Dark yellow (Yellow) Urine Appearance Turbid H (Clear) Urine pH 6.5 (5.0-9.0) Ur Specific [place] 1.028 (1.001-1.035) Urine Protein 1+ H mg/dL (Negative) Urine Glucose (UA) Negative mg/dL (Negative) Urine Ketones 1+ H mg/dL (Negative) Ur Blood (Man) 3+ H (Negative) Urine Nitrate Positive H (Negative) Urine Bilirubin 1+ H (Negative) Urine Urobilinogen 1.0 mg/dL (<2.0) Add Ur Microanalysis Reviewed Leukocyte Esterase Rfl 1+ H DENITA/UL (Negative) Urine RBC >100 H /hpf (0-2) Urine WBC 0-5 /hpf (0-3) Ur Squamous Epith Cells None seen /hpf (Few) Calcium Oxalate Crystal Present /hpf (None) Urine Bacteria None seen /hpf Urine Casts 0-2 Patient hx anesthesia problems: none Family hx anesthesia problems: none Results Review: All pre-operative results and documents have been reviewed as part of the pre- operative evaluation. 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 Achilles tendinitis of left lower extremity Anxiety Depression BMI 40.0-44.9, adult History of asthma History of seizures Acne Seasonal allergies Seizure Surgical History Surgical History Hx laparoscopic cholecystectomy 04/16/20 [place] teeth extracted Family History Family History Father ADHD Mother ADHD Social History Social History Smoking status: Never smoker Second hand tobacco smoke exposure: No Alcohol intake: never Alcohol use details: rare Substance use: never Substance use type: does not use Do You Feel Safe in your Home?: Yes Lack of Transportation: No Lack of Food: Never True Current Housing: I Have Housing Concerned About Future Housing: No Difficulty Paying Gas/Electric Bills: No Difficulty Paying for Meds: No Currently Unemployed: No Education: Decline to Answer Difficulty w/ Childcare or Family Care: No Living arrangements: with family Gender identity (if verbalized by the patient): Male Spiritual care concerns: No Anes - Eval Final PreProcedure Day of Procedure 05/13/24 08:04 Patient weight: morbidly obese Heart: regular rate and rhythm Lungs: clear to auscultation Airway: Mallampati scale class II Neurological: alert and oriented Last oral intake: >/= 8 hours ASA classification: III Emergent: no Anesthetic plan: proceed Anesthesia type and monitoring: general LMA and standard monitoring Results Review: All pre-operative results and documents have been reviewed as part of the pre- operative evaluation. Informed Consent: The patient's anesthetic plan and its attendant risks and benefits were di scussed with the patient/family/POA. Questions were solicited and answers provided to the satisfaction of the patient/family/POA.
--- NOTE | 2024-05-13 08:51 | WPDURCON ---
Assessment and Plan Assessment and plan (1) Calculus of ureter: Code(s): N20.1 - Calculus of ureter Status: Acute (2) Hydronephrosis with renal and ureteral calculous obstruction: Code(s): N13.2 - Hydronephrosis with renal and ureteral calculous obstruction Status: Acute Plan 24 yr old male presenting with 6 mm right proximal ureteral stone with hydro and evidence of UTI - We discussed proceeding to OR today for cystoscopy and right stent placement to alleviate the obstruction. He understands he will need definitive stone surgery with Dr. Waller or Dr. Pisano in the next few wks after infection resolves. He understands risks of the procedure today including but not limited to bleeding, infection, damage to urinary tract, stent irritation and risks of anesthesia. He elects to proceed - continue rocephin; urine culture pending - strain urine Urology Consult Note HPI Date Seen: 05/13/24 Requesting Physician: Jenifer Guevara DO Primary Care Provider: Mike Cruz APRN Consult Narrative Narrative: Prince Finn II, II is a 24 year old male presented to the ER last night with 1 day of right flank pain. He notes associated nausea. No fevers, chills. This is his first kidney stone. CT showed 6 mm right proximal ureteral stone with mild hydro. UA was positive for infection. Has been admitted for pain control and is on IV antibiotics. 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 Achilles tendinitis of left lower extremity Anxiety Depression BMI 40.0-44.9, adult History of asthma History of seizures Acne Seasonal allergies Seizure Surgical History Surgical History Hx laparoscopic cholecystectomy 04/16/20 [place] teeth extracted Family History Family History Father ADHD Mother ADHD Social History Social History Smoking status: Never smoker Second hand tobacco smoke exposure: No Alcohol intake: never Alcohol use details: rare Substance use: never Substance use type: does not use Do You Feel Safe in your Home?: Yes Lack of Transportation: No Lack of Food: Never True Current Housing: I Have Housing Concerned About Future Housing: No Difficulty Paying Gas/Electric Bills: No Difficulty Paying for Meds: No Currently Unemployed: No Education: Decline to Answer Difficulty w/ Childcare or Family Care: No Living arrangements: with family Gender identity (if verbalized by the patient): Male Spiritual care concerns: No Meds Home Medications and Allergies Home Medications ?Medication ?Instructions ?Recorded ?Confirmed ?Type cetirizine 10 mg tablet 10 mg PO QHS 10/31/19 05/13/24 History diazepam 20 mg/2 spray (10 mg/0.1 20 mg (0.2 mL) intranasal ONCE PRN 02/03/23 05/13/24 Rx mL x 2) nasal spray (Valtoco) seizure > 5 minutes #2 sprays sertraline 100 mg tablet 100 mg PO QHS #90 tabs 11/22/23 05/13/24 Rx levetiracetam 750 mg 1,500 mg (2 x 750 mg) PO DAILY 03/08/24 05/13/24 Rx tablet,extended release 24 hr #180 tabs (Keppra XR) zonisamide 100 mg capsule 300 mg (3 x 100 mg) PO DAILY #90 05/11/24 05/13/24 Rx caps cephalexin 500 mg capsule 500 mg PO Q6H 7 days #28 caps 05/12/24 Rx ondansetron 4 mg disintegrating 4 mg PO Q8H PRN nausea and 05/12/24 Rx tablet vomiting #15 tabs oxycodone 5 mg tablet 5 mg PO Q6H PRN pain #20 tabs 05/12/24 Rx tamsulosin 0.4 mg capsule (Flomax) 0.4 mg PO DAILY #10 caps 05/12/24 Rx Allergies Allergy/AdvReac Type Severity Reaction Status Date / Time cat dander Allergy Mild Sneezing/WH Verified 03/08/24 16:09 EEZING Vital Signs Vital Signs - 24 hr 05/12/24 13:30 05/12/24 15:56 05/12/24 21:02 Temperature 36.6 C 36.4 C 36.7 C Pulse Rate 105 H 101 H 100 Respiratory Rate 18 16 20 Blood Pressure 140/62 137/81 136/75 Pulse Oximetry 96 96 94 Oxygen Delivery Room Air 05/13/24 06:00 Temperature 37.1 C Pulse Rate 88 Respiratory Rate 18 Blood Pressure 138/65 Pulse Oximetry 99 Oxygen Delivery Exam Const: General: in distress mild (due to pain) HENMT: Face/Nose/Sinus: Normal nares present Eyes: General: appearance normal, both eyes and all related structures Neck: Neck: supple Resp: Effort & Inspection: normal respiratory effort Cardio: Rate: regular rate GI: GI Palp: Yes Soft to palpation : Other: R CVAT Skin: General skin exam: normal color Neuro: Speech: normal speech Extrem: General: normal to inspection Psych: Speech and movement: Normal speech and movement present Results Labs 05/12/24 15:58 05/12/24 15:58 Labs: Short CBC 05/12/24 Range/Units 15:58 WBC 14.2 H (4.5-10.0) K/mm3 Hgb 14.1 (14.0-18.0) g/dL Hct 43.4 (42.0-52.0) % Plt Count 271 (150-375) k/mm3 BMP 05/12/24 15:58 Sodium 138 Potassium 3.8 Chloride 102 Carbon Dioxide 23 BUN 9 Creatinine 1.04 Glucose 109 Calcium 9.5 Liver Function 05/12/24 Range/Units 15:58 Total Bilirubin 0.8 (0.2-1.3) mg/dL AST 58 (17-59) U/L ALT 55 H (6-50) U/L Alkaline Phosphatase 96 (38-126) U/L Albumin 4.4 (3.5-5.1) g/dL Urine 05/12/24 Range/Units 15:52 Urine Color Dark yellow (Yellow) Urine Appearance Turbid H (Clear) Urine pH 6.5 (5.0-9.0) Ur Specific [place] 1.028 (1.001-1.035) Urine Protein 1+ H (Negative) mg/dL Urine Glucose (UA) Negative (Negative) mg/dL Imaging My impression: Reviewed his CT. 6 mm right proximal ureteral stone with hydronephrosis
--- NOTE | 2024-05-13 08:57 | WPDHPUPDATE1 ---
History and Physical Update Update Date/Time: 05/13/24 08:57 History and Physical has been reviewed, including an updated exam of the patient. There are NO changes in the patient's condition. Risks, benefits, and alternatives have been discussed and questions answered. Patient agrees to proceed with procedure.
[2024-05-13] MEDS: LIDOCAINE 2% GEL UROJET 10 ML PKG MUCOUS MEM (09:05)
[2024-05-13] MEDS: LACTATED RINGERS 1,000 ML 30 ML IV CONT (09:19)
--- NOTE | 2024-05-13 09:19 | P.OP_ITS ---
Procedure Note - Detailed Date of Procedure 05/13/24 Pre-op Diagnosis R proximal ureteral stone and right hydronephrosis Post-op Diagnosis Same Procedure Performed cystoscopy, right retrograde pyelogram and placement of 6Fr right stent Surgeon Chantel Mina MD Anesthesia General (LMA) and Local Findings hydronephrotic drip from right collecting system Description of Procedure Patient was correctly identified and informed consent was obtained. He was br ought to the OR and a formal timeout was performed. General anesthesia was induced via LMA. He had already received rocephin and was not due for redosing. SCDs were placed on bilateral lower extremities for DVT prophylaxis. He was placed in dorsal lithotomy position, prepped and draped in a sterile fashion. A rigid cystoscope was inserted through the urethra into the bladder. The urine was cloudy. No stone or masses noted. The right UO was intubated with a sensor wire which was advanced up into the right kidney. I then advanced an 8fr coaxial dilator. He was noted to have a hydronephrotic drip. A gentle retrograde pyelogram was performed. He was noted to have mild hydronephrosis. A 6Fr variable length stent was placed under a combination of fluoroscopic guidance and direct vision with a curl in the renal pelvis and another curl in the bladder. The bladder was drained of its contents. 2% lidocaine jelly was inserted. He was awaken and taken to the recovery room in a stable condition. Implants 6 Fr VL stent Estimated Blood Loss 5 Complications No immediate complications Condition Stable Disposition PACU
--- NOTE | 2024-05-13 10:54 | PC.NURSE ---
Returned to room per hospital bed from OR.
--- NOTE | 2024-05-13 10:56 | P.HP_ITS ---
H&P: HPI History of Present Illness Date/Time: 05/13/24 10:56 Chief Complaint: renal calculus with hydronephrosis Narrative: this is a 24 y/o male with medical history of epilepsy, depression, anxiety, obesity, that presented to the ED for concerns for kidney stones or pyelonephritis. Patient went to an prior to ER and had an abnormal urinalysis. Patient was sent to the ED to rule out a kidney stone. Reporting pain to the right flank for 1 day prior to associated nausea and vomiting. No abdominal pain or dysuria. Patient was taking azo so was unable to report any obvious hematuria. No history of kidney stones. Patient in ER was noted to have a WBC 14.2, hgb - 14.1, hct 43.4, PTL - 271, BUN 9, creat - 1.04, GFR - 60. Urinalysis noted Leuko +1, Nitrate positive, and >[address] Abdomen pelvis noted right-sided hydroureteronephrosis secondary to 6 mm stone in the proximal right ureter. Fatty infiltration of the enlarged liver, hepatic splenomegaly. Patient was started on Rocephin 2 gram IVPB and admitted for urology consultation. Patient is a.m. was kept NPO, for cystoscopy with possible stent placement. Patient denies any distress or concern. Continues with some flank pain, but denies any distress. Denies any fever, chills, nausea diarrhea. Review of Systems Review of Systems: All systems reviewed & are unremarkable except as noted in HPI and below PMFSH Past Medical History Medical History Diarrhea Exogenous obesity Excessive daytime sleepiness Partial complex seizure disorder with intractable epilepsy Achilles tendinitis of left lower extremity Anxiety Depression BMI 40.0-44.9, adult History of asthma History of seizures Acne Seasonal allergies Seizure Surgical History Surgical History Hx laparoscopic cholecystectomy 04/16/20 [place] teeth extracted Family History Family History Father ADHD Mother ADHD Social History Social History Smoking status: Never smoker Second hand tobacco smoke exposure: No Alcohol intake: never Alcohol use details: rare Substance use: never Substance use type: does not use Do You Feel Safe in your Home?: Yes Lack of Transportation: No Lack of Food: Never True Current Housing: I Have Housing Concerned About Future Housing: No Difficulty Paying Gas/Electric Bills: No Difficulty Paying for Meds: No Currently Unemployed: No Education: Decline to Answer Difficulty w/ Childcare or Family Care: No Living arrangements: with family Gender identity (if verbalized by the patient): Male Spiritual care concerns: No Meds Home Medications and Allergies Home Medications ?Medication ?Instructions ?Recorded ?Confirmed ?Type cetirizine 10 mg tablet 10 mg PO QHS 10/31/19 05/13/24 History diazepam 20 mg/2 spray (10 mg/0.1 20 mg (0.2 mL) intranasal ONCE PRN 02/03/23 05/13/24 Rx mL x 2) nasal spray (Valtoco) seizure > 5 minutes #2 sprays sertraline 100 mg tablet 100 mg PO QHS #90 tabs 11/22/23 05/13/24 Rx levetiracetam 750 mg 1,500 mg (2 x 750 mg) PO DAILY 03/08/24 05/13/24 Rx tablet,extended release 24 hr #180 tabs (Keppra XR) zonisamide 100 mg capsule 300 mg (3 x 100 mg) PO DAILY #90 05/11/24 05/13/24 Rx caps cephalexin 500 mg capsule 500 mg PO Q6H 7 days #28 caps 05/12/24 Rx ondansetron 4 mg disintegrating 4 mg PO Q8H PRN nausea and 05/12/24 Rx tablet vomiting #15 tabs oxycodone 5 mg tablet 5 mg PO Q6H PRN pain #20 tabs 05/12/24 Rx tamsulosin 0.4 mg capsule (Flomax) 0.4 mg PO DAILY #10 caps 05/12/24 Rx Allergies Allergy/AdvReac Type Severity Reaction Status Date / Time cat dander Allergy Mild Sneezing/WH Verified 03/08/24 16:09 EEZING Vital Signs Vital Signs - 24 hr 05/12/24 13:30 05/12/24 15:56 05/12/24 21:02 Temperature 97.8 F 97.6 F 98.0 F Pulse Rate 105 H 101 H 100 Respiratory Rate 18 16 20 Blood Pressure 140/62 137/81 136/75 Pulse Oximetry 96 96 94 Oxygen Delivery Room Air Oxygen Flow Rate 05/13/24 06:00 05/13/24 09:19 05/13/24 09:30 Temperature 98.8 F 97.4 F L Pulse Rate 88 98 103 H Respiratory Rate 18 20 20 Blood Pressure 138/65 130/87 137/87 Pulse Oximetry 99 98 94 Oxygen Delivery Simple Face Mask Room Air Oxygen Flow Rate 10 05/13/24 09:45 05/13/24 10:00 05/13/24 10:15 Temperature Pulse Rate 103 H 93 93 Respiratory Rate 13 19 18 Blood Pressure 149/67 H 131/75 134/83 Pulse Oximetry 94 94 93 Oxygen Delivery Room Air Room Air Room Air Oxygen Flow Rate Exam Const: General: cooperative, comfortable, no acute distress, well developed, alert, awake and Physically active HENMT: Head: normal to inspection Eyes: General: appearance normal, both eyes and all related structures Neck: Neck: normal visual inspection Chest: Chest palpation & inspection: normal inspection of the chest Resp: Effort & Inspection: normal respiratory effort Auscultation: clear to auscultation bilaterally Cardio: Jugular venous distension: no JVD Palpation: normal PMI Rate: regular rate Rhythm: regular rhythm Heart sounds: S1 normal heart sound present and S2 normal heart sound present Peripheral pulses: Peripheral pulses 2+ throughout GI: Inspection: normal to inspection GI Palp: Yes Soft to palpation and Yes Hepatosplenomegaly present Auscultation: normal bowel sounds Back/Spine/Pelvis: Back: CVA tenderness (right) Skin: General skin exam: normal color and no rashes or lesions noted Neuro: General: oriented to person, oriented to place, oriented to time and tone normal Extrem: General: normal to inspection, full ROM, capillary refill normal and normal exam except as noted Psych: Appearance: grossly normal H&P: Results Labs Labs: Short CBC 05/12/24 Range/Units 15:58 WBC 14.2 H (4.5-10.0) K/mm3 Hgb 14.1 (14.0-18.0) g/dL Hct 43.4 (42.0-52.0) % Plt Count 271 (150-375) k/mm3 [facility] 05/12/24 15:58 Sodium 138 Potassium 3.8 Chloride 102 Carbon Dioxide 23 BUN 9 Creatinine 1.04 Glucose 109 Calcium 9.5 Liver Function 05/12/24 Range/Units 15:58 Total Bilirubin 0.8 (0.2-1.3) mg/dL AST 58 (17-59) U/L ALT 55 H (6-50) U/L Alkaline Phosphatase 96 (38-126) U/L Albumin 4.4 (3.5-5.1) g/dL Urine 05/12/24 Range/Units 15:52 Urine Color Dark yellow (Yellow) Urine Appearance Turbid H (Clear) Urine pH 6.5 (5.0-9.0) Ur Specific [place] 1.028 (1.001-1.035) Urine Protein 1+ H (Negative) mg/dL Urine Glucose (UA) Negative (Negative) mg/dL Assessment and Plan Assessment and plan (1) Hydronephrosis with renal and ureteral calculous obstruction: Code(s): N13.2 - Hydronephrosis with renal and ureteral calculous obstruction Status: Acute Assessment and Plan: - OR today (05/13) by Dr Chantel Mina for cystoscopy, right retrograde pyelogram and placement of 6Fr right stent - urinating well post operatively - pain controlled. (2) Abnormal urinalysis: Code(s): R82.90 - Unspecified abnormal findings in urine Status: Acute Assessment and Plan: - Leuks +1, pos Nitrates, >100 RBC ---> Urine culture pending. --> Given 2 gram [place] IVPB, will continue. 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 Plan DVT - Mechanical Code status: full code - Will contact Urologist, possible D/c home with outpatient follow up today if stable, if not in AM. Quality VTE Prophylaxis VTE prophylaxis: mechanical ordered Hospitalist [facility] Advance Care Plan I have confirmed that the patient's Advanced Care Plan is present, code status is documented, or surrogate decision maker is listed in patient medical record.: Yes Medication Reconciliation I have utilized all available resources to obtain, update and review the patients current medications (includes all prescriptions, OTC, herbals, c annabis, and nutritional supplements).: Yes
--- NOTE | 2024-05-13 13:45 | PM.DS ---
DS: Admitting Diagnosis Discharge Date 05/13/2024 Admitting Diagnosis right renal calculus with ureter/hydronephrosis DS: Discharge Diagnosis Discharge Diagnosis Plan right renal calculus, obstructing, hydroureter, UTI DS: Summary Hospital Course Hospital Course: this is a 24 y/o male with medical history of epilepsy, depression, anxiety, obesity, that presented to the ED for concerns for kidney stones or pyelonephritis. Patient went to an prior to ER and had an abnormal urinalysis. Patient was sent to the ED to rule out a kidney stone. Reporting pain to the right flank for 1 day prior to associated nausea and vomiting. No abdominal pain or dysuria. Patient was taking azo so was unable to report any obvious hematuria. No history of kidney stones. Patient in ER was noted to have a WBC 14.2, hgb - 14.1, hct 43.4, PTL - 271, BUN 9, creat - 1.04, GFR - 60. Urinalysis noted Leuko +1, Nitrate positive, and >[address] Abdomen pelvis noted right-sided hydroureteronephrosis secondary to 6 mm stone in the proximal right ureter. Fatty infiltration of the enlarged liver, hepatic splenomegaly. Patient was started on Rocephin 2 gram IVPB and admitted for urology consultation. Patient is a.m. was kept NPO, for cystoscopy with possible stent placement. Patient denies any distress or concern. Continues with some flank pain, but denies any distress. Denies any fever, chills, nausea diarrhea. Patient did go to OR today with Dr. Chantel Mina, successful cystoscopy right retrograde pyelogram and placement of a 6 Yoruba right stent placement. Patient arrived to the floor stable, he was able to eat and drink and urinate well. He denies any need to stay in the hospital at this time. He is preferring to be discharged home. Did discuss that he had antibiotics sent by the emergency department as well as pain medicine, nausea medication, and Flomax. Id him to medicinal plant picker those medications at [facility], continue them. Follow up with Dr. Chantel Mina. Call her office on Wednesday to schedule appointment. He internally questions to their satisfaction they are agreeable to discharge home. Status at Discharge Functional status at discharge: independent ambulation Overall status at discharge: patient is back to baseline Time Spent with Patient Time attestation: Total time spent providing and/or coordinating discharge services: Time spent: Less than 30 minutes Exam Const: General: cooperative, comfortable, no acute distress, well developed, alert and awake Eyes: General: appearance normal, both eyes and all related structures Neck: Neck: normal visual inspection, full ROM and no lymphadenopathy Chest: Chest palpation & inspection: normal inspection of the chest Resp: Effort & Inspection: normal respiratory effort Auscultation: clear to auscultation bilaterally Cardio: Jugular venous distension: no JVD Palpation: normal PMI Rate: regular rate Rhythm: regular rhythm Heart sounds: S1 normal heart sound present and S2 normal heart sound present GI: Inspection: normal to inspection Auscultation: normal bowel sounds Back/Spine/Pelvis: Back: no CVA tenderness Skin: General skin exam: normal color and no rashes or lesions noted Neuro: General: oriented to person, oriented to place, oriented to time, patient oriented x3, gait normal, tone normal and moves all extremities Extrem: General: normal to inspection, full ROM and capillary refill normal Psych: Appearance: grossly normal Mental Status: mental status grossly normal DS: Data Data Completed and Pending Completed studies during hospitalization: CT Abdomen pelvis noted right-sided hydroureteronephrosis secondary to 6 mm stone in the proximal right ureter. Fatty infiltration of the enlarged liver, hepatic splenomegal Labs on day of discharge: Labs from last 24 hours 05/12/24 05/12/24 15:58 15:52 WBC 14.2 H RBC 5.27 Hgb 14.1 Hct 43.4 MCV 82.4 MCH 26.8 MCHC 32.5 RDW 13.4 Plt Count 271 MPV 10.1 Immature Gran % (Auto) 0.3 Neut % (Auto) 86.3 H Lymph % (Auto) 7.3 L [place] % (Auto) 5.7 Eos % (Auto) 0.1 Baso % (Auto) 0.3 Lymph # (Auto) 1.04 [place] # (Auto) 0.8 H Eos # (Auto) 0.0 Baso # (Auto) 0.0 Abs Immat Gran (auto) 0.04 H Absolute Neuts (auto) 12.3 H Absolute Nucleated RBC 0.000 Nucleated RBC % 0.0 Sodium 138 Potassium 3.8 Chloride 102 Carbon Dioxide 23 Anion Gap 13 H BUN 9 Creatinine 1.04 Estim Creat Clear Calc 117 Estimated GFR > 60 Glucose 109 Calcium 9.5 Total Bilirubin 0.8 AST 58 ALT 55 H Alkaline Phosphatase 96 Total Protein 8.0 Albumin 4.4 Urine Color Dark yellow Urine Appearance Turbid H Urine pH 6.5 Ur Specific [place] 1.028 Urine Protein 1+ H Urine Glucose (UA) Negative Urine Ketones 1+ H Ur Blood (Man) 3+ H Urine Nitrate Positive H Urine Bilirubin 1+ H Urine Urobilinogen 1.0 Add Ur Microanalysis Reviewed Leukocyte Esterase Rfl 1+ H Urine RBC >100 H Urine WBC 0-5 Ur Squamous Epith Cells None seen Calcium Oxalate Crystal Present Urine Bacteria None seen Urine Casts 0-2 Imaging Attestation: I personally reviewed and interpreted this imaging study as follows: My impression: CT Abdomen pelvis noted right-sided hydroureteronephrosis secondary to 6 mm stone in the proximal right ureter. Fatty infiltration of the enlarged liver, hepatic splenomegal Discharge Plan Discharge Attending physician on discharge: Lucila Montiel Consulting providers: Chantel Mina Discharging Clinician: Lucila Montiel Activity: may shower, no straining and pelvic rest Diet: as tolerated Discharge Instructions: Increase your fluids, rest. Avoid any straining a, heavy lifting. Avoid any alcohol or carbonated beverages. Continue with antibiotic until completed. He will follow-up with Dr. Mina outpatient, call office on Wednesday to make an appointment. Patient Instructions: Kidney Stones (DC) Patient Language: Telugu Follow-up/Referrals: Chantel Mina MD [Physician] - Discharge Medications: New oxycodone 5 mg tablet 5 mg PO Q6H PRN (Reason: pain) Qty: 20 0RF tamsulosin [Flomax] 0.4 mg capsule 0.4 mg PO DAILY Qty: 10 0RF ondansetron 4 mg tablet,disintegrating 4 mg PO Q8H PRN (Reason: nausea and vomiting) Qty: 15 0RF cephalexin 500 mg capsule 500 mg PO Q6H 7 Days Qty: 28 0RF Continued cetirizine 10 mg tablet 10 mg PO QHS Valtoco 20 mg/2 spray (10mg/0.1mL x2) spray,non-aerosol 20 mg intranasal ONCE PRN (Reason: seizure > 5 minutes) Qty: 2 1RF Rx Instructions: administer 1 spray into each nostril; as a single dose levetiracetam [Keppra XR] 750 mg tablet extended release 24 hr 1,500 mg PO DAILY Qty: 180 4RF sertraline 100 mg tablet 100 mg PO QHS Qty: 90 1RF zonisamide 100 mg capsule 300 mg PO DAILY Qty: 90 3RF Rx Instructions: should be taken at bedtime Date of admission: 05/12/24 21:14 Primary Care Provider: Mike Cruz Admitting Provider: Jenifer Guevara Attending physician on admission: Jenifer Guevara Condition: Stable
== END 2024-05-13 16:20 | disposition home or self-care (01) ==
LOC: ANHED 20:29 → ANH3MEDSUR 05-13 00:46
PROVIDERS: Physician Assistant; Urology; Admitting Provider Internal Medicine; Emergency Provider Physician Assistant; PCP Nurse Practitioner; Visit Provider Internal Medicine
PROC: (CPT 52352; principal; 2024-05-13 09:00)
DX: N13.2 Hydronephrosis with renal and ureteral calculous obstruction (principal); R82.90 Unspecified abnormal findings in urine; G40.219 Localization-related (focal) (partial) symptomatic epilepsy and epileptic syndromes with complex partial seizures, intractable, without status epilepticus; E66.01 Morbid (severe) obesity due to excess calories; Z68.41 Body mass index [BMI] 40.0-44.9, adult; J45.909 Unspecified asthma, uncomplicated; F32.A Depression, unspecified; F41.9 Anxiety disorder, unspecified; K76.0 Fatty (change of) liver, not elsewhere classified; R16.2 Hepatomegaly with splenomegaly, not elsewhere classified; Z79.899 Other long term (current) drug therapy
CPT/HCPCS: 52332; 36415; 74018; 74176; 74420; 80053; 81001; 85025; 87086; 96365; 96375; 99285; A9270; C1769; C2617; G0378; J0696; J1100; J1171; J2003; J2250; J2270; J2405; J2704; J3010; J7030; J7120; Q9966

== ENCOUNTER 2024-05-17 13:17 | Outpatient (CLI) | payer SELFPAY ==
--- OUTSIDE RECORDS SUMMARY | 2024-05-17 13:27 | XMS_ITS | Patient Health Summary ---
Author Organization [facility] Address [address] [place] [address] Care Team Providers Care Health Care Sanitary Technician Name Role Phone Mike Lisa MD Primary Care Provider Note from [facility] [place],non-owned Affiliates and Associated Physician Practices is amultiple site organization consisting of ambulatory clinics and hospital sitesin [place], [place], [place] and [place]. This disclosure is being madepursuant to the Care Everywhere program and may not contain all information available regarding this patient. Last updated 17.[facility] [employer] Allergies No known active allergies Medications Be [...] * LAB RESULTS ORDER (05/12/2016 2:18 AM CARDIOLOGY CLINICAL CONSULTANT) Only the most recent of2 resultswithin the time period is included. Narrative 05/12/2016 2:18 AM CARDIOLOGY CLINICAL CONSULTANT Ordered by an unspecified provider. Scanned Document LAB - THERAPEUTIC DR UG MONITORING ORDERABLES * TOPIRAMATE LEVEL (07/03/2015 5:08 PM CDT) Pathologist [facility] Topiramate 10.0 2.0 - 25.0 ug/mL 07/05/2015 2:25 PM CDT [facility] ([facility]) Comment:Detection Limit = 1. 0 Blood specimen (specimen) BLOOD SPECIMEN / Unknown Lab Venipuncture / Unknown 07/03/2015 5:08 PM CDT 07/03/2015 5:52 PM CDT Narrative [facility] ([facility]) - 07/05/2015 2:25 PM CDT Performed at: [address] [place] [id number] Building Associate: Greg Bolton MD, Phone: [phone] Onofre Pinto MD LAB - THERAPEUTI C DRUG MONITORING ORDERABLES [facility] * (ABNORMAL) CBC W AUTO DIFFERENTIAL (07/03/2015 5:08 PM CDT) Only the most recent of2 resultswithin the time period is included. Pathologist [facility] WBC 9.1 4.5 - 11.0 x10E9/L 07/03/2015 6:31 PM CDT [facility] WBC Corrected x10E9/L 07/03/2015 6:31 PM CDT [facility] RBC 5.30 4.50 - 5.30 x10E12/L 07/03/2015 6:31 PM CDT [facility] Hemoglobin 13.7 13.0 - 16.0 gm/dL 07/03/2015 6:31 PM CDT [facility] Hematocrit 42.7 37.0 - 49.0 % 07/03/2015 6:31 PM CDT [facility] MCV 80.6 78.0 - 98.0 fl 07/03/2015 6:31 PM CDT [facility] MCH 25.8 25.0 - 35.0 pg 07/03/2015 6:31 PM CDT [facility] MCHC 32.1 31.0 - 37.0 gm/dL 07/03/2015 6:31 PM CDT [facility] Platelet Count 281 100 - 400 x10E9/L 07/03/2015 6:31 PM T [facility] RDW-CV 13.6 11.5 - 14.0 % 07/03/2015 6:31 PM T [facility] MPV 11.0(H) 6.0 - 9.5 fl 07/03/2015 6:31 PM T [facility] Neutrophils % 58.4 31.0 - 78.0 % 07/03/2015 6:31 PM T [facility] Lymphocytes % 32.5 13.0 - 54.0 % 07/03/2015 6:31 PM T [facility] Monocytes % 6.0 4.0 - 13.0 % 07/03/2015 6:31 PM T [facility] Eosinophils % 2.6 0.0 - 8.0 % 07/03/2015 6:31 PM T [facility] Basophils % 0.3 % 07/03/2015 6:31 PM T [facility] Immature Granulocytes 0.2 % 07/03/2015 6:31 PM T [facility] Neutrophil Absolute 5.31 x10E9/L 07/03/2015 6:31 PM T [facility] Lymphocytes Absolute 2.96 x10E9/L 07/03/2015 6:31 PM CDT [facility] Monocytes Absolute 0.55 x10E9/L 07/03/2015 6:31 PM CDT [facility] Eosinophils Absolute 0.24 x10E9/L 07/03/2015 6:31 PM T [facility] Basophils Absolute 0.03 x10E9/L 07/03/2015 6:31 PM T [facility] Immature Granulocytes Absolute 0.02 x10E9/L 07/03/2015 6:31 PM T [facility] nRBC Auto 0 /100 WBC 07/03/2015 6:31 PM T [facility] Blood BLOOD SPECIMEN / Unknown Lab Venipuncture / Unknown 07/03/2015 5:08 PM CDT 07/03/2015 5:53 PM CDT Onofre Pinto MD LAB - HEMATOLOGY ORDERABLES [facility] [address] [place] [address] * BASIC METABOLIC PANEL (CALCIUM TOTAL) (07/03/2015 5:08 PM CDT) Only the most recent of3 resultswithin the time period is included. [facility] Glucose 78 70 - 105 mg/dL 07/03/2015 7:19 PM CDT [facility] Sodium 140 136 - 145 mmol/L 07/03/2015 7:19 PM T [facility] Potassium 3.9 3.5 - 5.1 mmol/L 07/03/2015 7:19 PM T [facility] Chloride 107 98 - 107 mmol/L 07/03/2015 7:19 PM T [facility] CO2 24 20 - 28 mmol/L 07/03/2015 7:19 PM T [facility] Calcium 9.08 9.08 - 10.48 mg/dL 07/03/2015 7:19 PM T [facility] Anion Gap 9 5 - 20 mmol/L 07/03/2015 7:19 PM T [facility] BUN 8.1 5.3 - 18.7 mg/dL 07/03/2015 7:19 PM T [facility] Creatinine 0.65 0.61 - 1.07 mg/dL 07/03/2015 7:19 PM T [facility] eGFR by MDRD >60 mL/min/1.7 3m2 07/03/2015 7:19 PM T [facility] Comment: eGFR calculations are not performed for children under 18 years old. eGFR by MDRD >60 mL/min/1.7 3m2 07/03/2015 7:19 PM T [facility] Comment: eGFR calculations are not performed for children under 18 years old. Blood BLOOD SPECIMEN / Unknown Lab Venipuncture / Unknown 07/03/2015 5:08 PM CDT 07/03/2015 5:52 PM CDT Onofre Pinto MD LAB - CHEMISTRY ORDERABLES [facility] [address] [place] [address] * PHOSPHORUS BLOOD (07/03/2015 5:08 PM CDT) Only the most recent of2 resultswithin the time period is included. Phosphorus 4.53 2.76 - 5.14 mg/dL 07/03/2015 8:04 PM CDT [facility] Blood BLOOD SPECIMEN / Unknown Lab Venipuncture / Unknown 07/03/2015 5:08 PM CDT 07/03/2015 5:52 PM CDT Onofre Pinto MD LAB - CHEMISTRY ORDERABLES Performing Organization Address [facility] de Phone Number [facility] [address] [place] [phone] * (ABNORMAL) MAGNESIUM BLOOD (07/03/2015 5:08 PM CDT) Only the most recent of2 resultswithin the time period is included. Magnesium 2.6(H) 1.7 - 2.3 mg/dL 07/03/2015 8:04 PM CDT [facility] Blood BLOOD SPECIMEN / Unknown Lab Venipuncture / Unknown 07/03/2015 5:08 PM CDT 07/03/2015 5:52 PM CDT Onofre Pinto MD LAB - CHEMISTRY ORDERABLES Performing Organization Address [facility] de Phone Number [facility] [address] [place] [phone] * (ABNORMAL) VITAMIN D 25-HYDROXY (02/07/2015 5:08 PM CARDIOLOGY CLINICAL CONSULTANT) Vitamin D, 25 Hydroxy 8.85(L) 30 - 100 ng/mL 02/08/2015 11:31 AM CARDIOLOGY CLINICAL CONSULTANT [facility] Blood BLOOD SPECIMEN / Unknown Lab Venipuncture / Unknown 02/07/2015 5:08 PM CARDIOLOGY CLINICAL CONSULTANT 02/07/2015 6:21 PM CARDIOLOGY CLINICAL CONSULTANT Narrative [facility] - 02/08/2015 11:31 AM CARDIOLOGY CLINICAL CONSULTANT Vitamin D Status: Deficiency <20 ng/mL Insufficiency 20-30 ng/mL Sufficiency 30-100 ng/mL Toxicity >100 ng/mL Onofre Pinto MD LAB - CHEMISTRY ORDERABLES [facility] [address] [place] [address] * CARDIAC RHYTHM STRIP ORDER (12/15/2013 12:44 AM CDT) Provider Unknown CARDIAC SERVICES ORD ERABLES * DRUG ABUSE URINE PANEL (12/13/2013 5:16 PM CDT) Amphetamines Screen Urine Not Detected Not Detected 12/13/2013 5:44 PM CDT [facility] Barbiturates Screen Urine Not Detected Not Detected 12/13/2013 5:44 PM CDT [facility] Benzodiazepines Screen Urine Not Detected Not Detected 12/13/2013 5:44 PM CDT [facility] Cannabinoids Screen Urine Not Detected Not Detected 12/13/2013 5:44 PM CDT [facility] Cocaine Screen Urine Not Detected Not Detected 12/13/2013 5:44 PM CDT [facility] Opiate Screen Urine Not Detected Not Detected 12/13/2013 5:44 PM CDT [facility] Phencyclidine Screen Urine Not Detected Not Detected 12/13/2013 5:44 PM CDT [facility] Urine URINE / Unknown 12/13/2013 5 :16 PM CDT 12/13/2013 5:21 PM CDT Narrative [facility] - 12/13/2013 5:44 PM CDT [...] MD LAB - URINE CHEMISTR Y ORDERABLES [facility] [address] [place] [address] * MRI BRAIN WITH AND WITHOUT CONTRAST [...] Atkinson MD - 12/13/2013 1:[address] [id number] CLINICAL NEUROPHYSIOLOGY NAME: PRINCE COLE : 2000 ADDRESS: [address] [place] [address] , [place] [address] UNIT #: [id number] CSN #: [id number] DATE OF TEST: 12/13/2013 [employer]IONAL RE[employer]ATED CDL TRUCK DRIVER: JACE ATKINSON MD A 48 minute record [...] By: JACE ATKINSON MD /MedQ JOB ID: [id number] CLINICAL NEUROPHYSIOLOGY Vicki Correa MD NEUROLOGY [facility] Organization Address City/State/ZIP Co de Phone Number [facility] Care Teams Health Care Sanitary Technician Relationship Specialty Start Date End Date Mike Lisa MD [address] [place] [address] PCP - General 04/17/20
--- OUTSIDE RECORDS SUMMARY | 2024-05-17 13:27 | XMS_ITS | Referral Summary ---
Author Organization [facility] Address [address] [place] [address] Care Team Providers Care Music Leader Name Role Phone Mike Lisa MD Primary Care Provider Source Comments [facility],non-[facility] Affiliates and Associated Physician Practices is amultiple site organization consisting of ambulatory clinics and hospital sitesin [place], [place], [place] and [place]. This disclosure is being madepursuant to the Care Everywhere program and may not contain all information available regarding this patient. Last updated 17.[facility] [employer] Allergies No known active allergies Medications Be [...] of Treatment Not on file Care Teams Music Leader Relationship Specialty Start Date End Date Mike Lisa MD [address] [place] [address] [facility] - General 04/17/20
--- OUTSIDE RECORDS SUMMARY | 2024-05-17 13:27 | XMS_ITS | Clinical Summary ---
Author Organization [facility] Address [address] [place] [address] Care Team Providers Care Claim Representative Name Role Phone Mike Lisa MD Primary Care Provider [phone] Source Comments [facility],non-[facility] Affiliates and Associated Physician Practices is amultiple site organization consisting of ambulatory clinics and hospital sitesin [place], [place], [place] and [place]. This disclosure is being madepursuant to the Care Everywhere program and may not contain all information available regarding this patient. Last updated 17.[facility] [employer] Allergies No known active allergies Medications Be [...] age to complete this topic Care Teams Claim Representative Relationship Specialty Start Date End Date Mike Lisa MD [address] [place] [address] PCP - General 04/17/20
[2024-05-17 13:59] LABS: Partial Thromboplastin Time 23.9 Seconds (22.3-36.8); Prothrombin Time 13.3 Seconds (11.1-14.7)
== END 2024-05-17 13:18 | disposition home or self-care (01) ==
PROVIDERS: PCP Nurse Practitioner; Visit Provider Urology
DX: N20.1 Calculus of ureter (principal); Z01.818 Encounter for other preprocedural examination
CPT/HCPCS: 36415; 85610; 85730

== ENCOUNTER 2024-05-19 05:07 | Day surgery (SDC) | payer SELFPAY ==
[2024-05-16 09:39] VITALS: BMI 40.4
--- NOTE | 2024-05-16 09:40 | PC.NURSE ---
Report to the Outpatient Waiting Room, entrance under the green pavilion located off [facility], at time _1130_ on date _[id number]_. Planned Procedure Time: _130pm_.? Time changes happen often and if your time is changed the preop area will call you the afternoon before. - You and your visitor will be asked to self-screen and do not enter if you have any COVID symptoms. Please call surgeon if you need to reschedule. - A mask is optional within the hospital at this time. Patients may have clear liquids (water, carbonated beverages, clear teas, apple juice) until 3 hours prior to surgery with a maximum of 20 ounces. - No food from midnight until time of surgery and no smoking, or chewing tobacco (or any form of nicotine). No chewing gum, candy or mints. Take only the following medications with a SIP of water on the morning of surgery: ___Ok antibiotic, nausea med and pain med if needed. DO NOT STOP ANY OF YOUR OTHER PRESCRIPTION MEDICATIONS PRIOR TO SURGERY EXCEPT THE FOLLOWING Hold all vitamins and supplements for 3 days per anesthesiologist. Medications to discontinue per physician Date to take last dose__Stop now.____ Please no make-up, nail irish, hairspray, perfume, deodorant, or body powder the day of surgery.? No jewelry (including any body piercings) or valuables the day of surgery, leave them at home.? Please take a shower or bath the night before, or the morning of, surgery with an antibacterial soap.? Wear comfortable, loose fitting clothing.? - Jewelry must be removed prior to entering the operating room.? Rings and piercings that are not removed may be cut off. - The hospital will not accept responsibility for valuables.? - Please leave all valuables, including medications, at home the day of surgery. If you are going home after surgery, a licensed salesperson driver must drive you home.? - NO public transportation without another adult if you receive anesthesia. - We recommend that an adult stay with you for 24 hours following discharge. - We also recommend that you do not drive, make important decision, drink alcoholic beverages, or take any drugs that were not prescribed by your health care provider for at least 24 hours after your discharge time. Follow any additional instructions given to you from your surgeon. Telephone instructions given to __Roverto___and asked if any additional questions and then verbalized understanding. Patient advised to call surgeon office or pre surgery nurse liaison [phone] if any additional questions.
--- NOTE | 2024-05-17 07:05 | P.HP_ITS ---
History of Present Illness History of Present Illness Consent: Risks, benefits, and alternatives have been discussed and questions answered. Patient agrees to proceed with procedure. Chief complaint: right ureteral stone Narrative: Prince Finn II, II is a 24 year old male admitted last weekend with 6mm obstructing right mid-ureteral stone. 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 Achilles tendinitis of left lower extremity Anxiety Depression BMI 40.0-44.9, adult History of asthma History of seizures Acne Seasonal allergies Seizure Surgical History Surgical History Hx laparoscopic cholecystectomy 04/16/20 [place] teeth extracted Family History Family History Father ADHD Mother ADHD Social History Social History Smoking status: Never smoker Second hand tobacco smoke exposure: No Alcohol intake: current Alcohol use details: rare Substance use: never Substance use type: does not use Do You Feel Safe in your Home?: Yes Lack of Transportation: No Lack of Food: Never True Current Housing: I Have Housing Concerned About Future Housing: No Difficulty Paying Gas/Electric Bills: No Difficulty Paying for Meds: No Currently Unemployed: No Education: Decline to Answer Difficulty w/ Childcare or Family Care: No Living arrangements: with family Gender identity (if verbalized by the patient): Male Spiritual care concerns: No Meds Home Medications and Allergies Home Medications ?Medication ?Instructions ?Recorded ?Confirmed ?Type cetirizine 10 mg tablet 10 mg PO QHS 10/31/19 05/16/24 History diazepam 20 mg/2 spray (10 mg/0.1 20 mg (0.2 mL) intranasal ONCE PRN 02/03/23 05/16/24 Rx mL x 2) nasal spray (Valtoco) seizure > 5 minutes #2 sprays sertraline 100 mg tablet 100 mg PO QHS #90 tabs 11/22/23 05/16/24 Rx levetiracetam 750 mg 1,500 mg (2 x 750 mg) PO DAILY 03/08/24 05/16/24 Rx tablet,extended release 24 hr #180 tabs (Keppra XR) zonisamide 100 mg capsule 300 mg (3 x 100 mg) PO DAILY #90 05/11/24 05/16/24 Rx caps cephalexin 500 mg capsule 500 mg PO Q6H 7 days #28 caps 05/12/24 05/16/24 Rx ondansetron 4 mg disintegrating 4 mg PO Q8H PRN nausea and 05/12/24 05/16/24 Rx tablet vomiting #15 tabs oxycodone 5 mg tablet 5 mg PO Q6H PRN pain #20 tabs 05/12/24 05/16/24 Rx tamsulosin 0.4 mg capsule (Flomax) 0.4 mg PO DAILY #10 caps 05/12/24 05/16/24 Rx cyanocobalamin (vitamin B-12) 500 500 mcg PO HS 05/16/24 05/16/24 History mcg tablet (Vitamin B-12) Allergies Allergy/AdvReac Type Severity Reaction Status Date / Time cat dander Allergy Mild Sneezing/WH Verified 05/16/24 09:29 EEZING Exam Const: General: no acute distress Resp: Effort & Inspection: normal respiratory effort GI: Inspection: non-distended GI Palp: No abdominal tenderness and No Guarding due to palpation present (GI) Auscultation: normal bowel sounds Assessment and Plan Assessment and plan (1) Calculus of proximal right ureter: Code(s): N20.1 - Calculus of ureter Status: Acute Assessment and Plan: * Cystoscopy, right stent removal, right ESWL
[2024-05-19] VITALS (9 sets, daily range): BP systolic 93–143; BP diastolic 51–82; PULSE 67–86; RESP 15–20; TEMP 36.8–36.9; O2SAT 96–100
--- NOTE | ~2024-05-19 | XR_ITS ---
EXAMINATION: XR abdomen/kub 1V DATE: 05/19/2024 13:42 INDICATION: Right kidney stone. TECHNIQUE: A supine view of the abdomen on 2 radiographs was obtained. COMPARISON: Abdomen radiographs 05/12/2024, CT abdomen and pelvis 05/12/2024 FINDINGS: There are no dilated loops of bowel. Surgical clips in the right upper quadrant are likely from cholecystectomy. There is a 4 mm stone in left kidney. There is a right ureteral stent in expect ed position. There is a 5 mm stone in proximal right ureter. IMPRESSION: 1. 5 mm stone in proximal right ureter with right internal ureteral stent in expected position. 2. 4 mm left kidney stone. Reviewed, dictated and finalized at location A. TH POLICY NURSE IMPRESSION: 1. 5 mm stone in proximal right ureter with right internal ureteral stent in ex pected position. 2. 4 mm left kidney stone.
--- OUTSIDE RECORDS SUMMARY | 2024-05-19 05:09 | XMS_ITS | Patient Health Summary ---
Author Organization [facility] Address [address] [place] [address] Care Team Providers Care Carpet Sewer Name Role Phone Mike Lisa MD Primary Care Provider [phone] Note from [facility],non-owned Affiliates and Associated Physician Practices is amultiple site organization consisting of ambulatory clinics and hospital sitesin [place], [place], [place] and [place]. This disclosure is being madepursuant to the Care Everywhere program and may not contain all information available regarding this patient. Last updated 17.[facility] [employer] Allergies No known active allergies Medications Be [...] * LAB RESULTS ORDER (05/12/2016 2:18 AM JOB SPOTTER) Only the most recent of2 resultswithin the time period is included. Narrative 05/12/2016 2:18 AM JOB SPOTTER Ordered by an unspecified provider. Scanned Document LAB - THERAPEUTIC DR UG MONITORING ORDERABLES * TOPIRAMATE LEVEL (07/03/2015 5:08 PM CDT) Pathologist [facility] Topiramate 10.0 2.0 - 25.0 ug/mL 07/05/2015 2:25 PM CDT [facility] ([facility]) Comment:Detection Limit = 1. 0 Blood specimen (specimen) BLOOD SPECIMEN / Unknown Lab Venipuncture / Unknown 07/03/2015 5:08 PM CDT 07/03/2015 5:52 PM CDT Narrative [facility] ([facility]) - 07/05/2015 2:25 PM CDT Performed at: [address] [place] [id number] Economic Forecaster: Greg Bolton MD, Phone: [phone] Onofre Pinto MD LAB - THERAPEUTI C DRUG MONITORING ORDERABLES [facility] * (ABNORMAL) CBC W AUTO DIFFERENTIAL (07/03/2015 5:08 PM CDT) Only the most recent of2 resultswithin the time period is included. Pathologist [facility] WBC 9.1 4.5 - 11.0 x10E9/L 07/03/2015 6:31 PM CDT [facility] WBC Corrected x10E9/L 07/03/2015 6:31 PM CDT [facility] RBC 5.30 4.50 - 5.30 x10E12/L 07/03/2015 6:31 PM CDT [facility] Hemoglobin 13.7 13.0 - 16.0 gm/dL 07/03/2015 6:31 PM CDT [facility] Hematocrit 42.7 37.0 - 49.0 % 07/03/2015 6:31 PM CDT [facility] MCV 80.6 78.0 - 98.0 fl 07/03/2015 6:31 PM CDT [facility] MCH 25.8 25.0 - 35.0 pg 07/03/2015 6:31 PM CDT [facility] MCHC 32.1 31.0 - 37.0 gm/dL 07/03/2015 6:31 PM CDT [facility] Platelet Count 281 100 - 400 x10E9/L 07/03/2015 6:31 PM T [facility] RDW-CV 13.6 11.5 - 14.0 % 07/03/2015 6:31 PM T [facility] MPV 11.0(H) 6.0 - 9.5 fl 07/03/2015 6:31 PM T [facility] Neutrophils % 58.4 31.0 - 78.0 % 07/03/2015 6:31 PM T [facility] Lymphocytes % 32.5 13.0 - 54.0 % 07/03/2015 6:31 PM T [facility] Monocytes % 6.0 4.0 - 13.0 % 07/03/2015 6:31 PM T [facility] Eosinophils % 2.6 0.0 - 8.0 % 07/03/2015 6:31 PM T [facility] Basophils % 0.3 % 07/03/2015 6:31 PM T [facility] Immature Granulocytes 0.2 % 07/03/2015 6:31 PM T [facility] Neutrophil Absolute 5.31 x10E9/L 07/03/2015 6:31 PM T [facility] Lymphocytes Absolute 2.96 x10E9/L 07/03/2015 6:31 PM CDT [facility] Monocytes Absolute 0.55 x10E9/L 07/03/2015 6:31 PM CDT [facility] Eosinophils Absolute 0.24 x10E9/L 07/03/2015 6:31 PM T [facility] Basophils Absolute 0.03 x10E9/L 07/03/2015 6:31 PM T [facility] Immature Granulocytes Absolute 0.02 x10E9/L 07/03/2015 6:31 PM T [facility] nRBC Auto 0 /100 WBC 07/03/2015 6:31 PM T [facility] Blood BLOOD SPECIMEN / Unknown Lab Venipuncture / Unknown 07/03/2015 5:08 PM CDT 07/03/2015 5:53 PM CDT Onofre Pinto MD LAB - HEMATOLOGY ORDERABLES [facility] [address] [place] [address] * BASIC METABOLIC PANEL (CALCIUM TOTAL) (07/03/2015 5:08 PM CDT) Only the most recent of3 resultswithin the time period is included. [facility] Glucose 78 70 - 105 mg/dL 07/03/2015 7:19 PM CDT [facility] Sodium 140 136 - 145 mmol/L 07/03/2015 7:19 PM T [facility] Potassium 3.9 3.5 - 5.1 mmol/L 07/03/2015 7:19 PM T [facility] Chloride 107 98 - 107 mmol/L 07/03/2015 7:19 PM T [facility] CO2 24 20 - 28 mmol/L 07/03/2015 7:19 PM T [facility] Calcium 9.08 9.08 - 10.48 mg/dL 07/03/2015 7:19 PM T [facility] Anion Gap 9 5 - 20 mmol/L 07/03/2015 7:19 PM T [facility] BUN 8.1 5.3 - 18.7 mg/dL 07/03/2015 7:19 PM T [facility] Creatinine 0.65 0.61 - 1.07 mg/dL 07/03/2015 7:19 PM T [facility] eGFR by MDRD >60 mL/min/1.7 3m2 07/03/2015 7:19 PM T [facility] Comment: eGFR calculations are not performed for children under 18 years old. eGFR by MDRD >60 mL/min/1.7 3m2 07/03/2015 7:19 PM T [facility] Comment: eGFR calculations are not performed for children under 18 years old. Blood BLOOD SPECIMEN / Unknown Lab Venipuncture / Unknown 07/03/2015 5:08 PM CDT 07/03/2015 5:52 PM CDT Onofre Pinto MD LAB - CHEMISTRY ORDERABLES [facility] [address] [place] [address] * PHOSPHORUS BLOOD (07/03/2015 5:08 PM CDT) Only the most recent of2 resultswithin the time period is included. Phosphorus 4.53 2.76 - 5.14 mg/dL 07/03/2015 8:04 PM CDT [facility] Blood BLOOD SPECIMEN / Unknown Lab Venipuncture / Unknown 07/03/2015 5:08 PM CDT 07/03/2015 5:52 PM CDT Onofre Pinto MD LAB - CHEMISTRY ORDERABLES Performing Organization Address [facility] de Phone Number [facility] [address] [place] [phone] * (ABNORMAL) MAGNESIUM BLOOD (07/03/2015 5:08 PM CDT) Only the most recent of2 resultswithin the time period is included. Magnesium 2.6(H) 1.7 - 2.3 mg/dL 07/03/2015 8:04 PM CDT [facility] Blood BLOOD SPECIMEN / Unknown Lab Venipuncture / Unknown 07/03/2015 5:08 PM CDT 07/03/2015 5:52 PM CDT Onofre Pinto MD LAB - CHEMISTRY ORDERABLES Performing Organization Address [facility] de Phone Number [facility] [address] [place] [phone] * (ABNORMAL) VITAMIN D 25-HYDROXY (02/07/2015 5:08 PM JOB SPOTTER) Vitamin D, 25 Hydroxy 8.85(L) 30 - 100 ng/mL 02/08/2015 11:31 AM JOB SPOTTER [facility] Blood BLOOD SPECIMEN / Unknown Lab Venipuncture / Unknown 02/07/2015 5:08 PM JOB SPOTTER 02/07/2015 6:21 PM JOB SPOTTER Narrative [facility] - 02/08/2015 11:31 AM JOB SPOTTER Vitamin D Status: Deficiency <20 ng/mL Insufficiency 20-30 ng/mL Sufficiency 30-100 ng/mL Toxicity >100 ng/mL Onofre Pinto MD LAB - CHEMISTRY ORDERABLES [facility] [address] [place] [address] * CARDIAC RHYTHM STRIP ORDER (12/15/2013 12:44 AM CDT) Provider Unknown CARDIAC SERVICES ORD ERABLES * DRUG ABUSE URINE PANEL (12/13/2013 5:16 PM CDT) Amphetamines Screen Urine Not Detected Not Detected 12/13/2013 5:44 PM CDT [facility] Barbiturates Screen Urine Not Detected Not Detected 12/13/2013 5:44 PM CDT [facility] Benzodiazepines Screen Urine Not Detected Not Detected 12/13/2013 5:44 PM CDT [facility] Cannabinoids Screen Urine Not Detected Not Detected 12/13/2013 5:44 PM CDT [facility] Cocaine Screen Urine Not Detected Not Detected 12/13/2013 5:44 PM CDT [facility] Opiate Screen Urine Not Detected Not Detected 12/13/2013 5:44 PM CDT [facility] Phencyclidine Screen Urine Not Detected Not Detected 12/13/2013 5:44 PM CDT [facility] Urine URINE / Unknown 12/13/2013 5 :16 PM CDT 12/13/2013 5:21 PM CDT Narrative [facility] - 12/13/2013 5:44 PM [...] MD LAB - URINE CHEMISTR Y ORDERABLES [facility] [address] [place] [address] * MRI BRAIN WITH AND WITHOUT CONTRAST [...] Atkinson MD - 12/13/2013 1:12 PM [address] [id number] CLINICAL NEUROPHYSIOLOGY NAME: PRINCE COLE : 2000 AD[address]: [address] [place] [address] , [place] [address] UNIT #: [id number] CSN #: [id number] DATE OF TEST: 12/13/2013 HUMAN INTELLIGENCE: JACE ATKINSON MD A 48 minute record [...] By: JACE ATKINSON MD /MedQ JOB ID: [id number] CLINICAL NEUROPHYSIOLOGY Vicki Correa MD NEUROLOGY [facility] Organization Address City/State/ZIP Co de Phone Number [facility] Care Teams Carpet Sewer Relationship Specialty Start Date End Date Mike Lisa MD [address] [place] [address] PCP - General 04/17/20
--- OUTSIDE RECORDS SUMMARY | 2024-05-19 05:09 | XMS_ITS | Clinical Summary ---
Author Organization [facility] Address [address] [facility] [place] [address] Care Team Providers Care Degreaser Name Role Phone Mike Lisa MD Primary Care Provider [phone] Source Comments [facility],non-[facility] Affiliates and Associated Physician Practices is amultiple site organization consisting of ambulatory clinics and hospital sitesin [place], [place], [place] and [place]. This disclosure is being madepursuant to the Care Everywhere program and may not contain all information available regarding this patient. Last updated 17.[facility] [employer] Allergies No known active allergies Medications Be [...] age to complete this topic Care Teams Degreaser Relationship Specialty Start Date End Date Mike Lisa MD [address] [place] [address] PCP - General 04/17/20
--- OUTSIDE RECORDS SUMMARY | 2024-05-19 05:09 | XMS_ITS | Referral Summary ---
Author Organization [facility] Address [address] [place] [address] Care Team Providers Care Lumber Tailer Name Role Phone Mike Lisa MD Primary Care Provider [phone] Source Comments [facility],non-[facility] Affiliates and Associated Physician Practices is amultiple site organization consisting of ambulatory clinics and hospital sitesin [place], [place], [place] and [place]. This disclosure is being madepursuant to the Care Everywhere program and may not contain all information available regarding this patient. Last updated 17.[facility] [employer] Allergies No known active allergies Medications Be [...] of Treatment Not on file Care Teams Lumber Tailer Relationship Specialty Start Date End Date Mike Lisa MD [address] [place] [address] [facility] - General 04/17/20
--- NOTE | 2024-05-19 06:24 | WPDHPUPDATE1 ---
History and Physical Update Update Date/Time: 05/19/24 06:24 History and Physical has been reviewed, including an updated exam of the patient. There are NO changes in the patient's condition. Risks, benefits, and alternatives have been discussed and questions answered. Patient agrees to proceed with procedure.
--- NOTE | 2024-05-19 14:28 | WPDANESEPPF ---
Anes - Initial Pre Proc Eval Procedure: Operation Date: 05/19/24 15:30 Proposed Procedures p Right Extracorporeal Shock Wave Lithotripsy, - Melquiades Waller MD s Cystoscopy, Possible Right Stent Removal and Replacement - Melquiades Waller MD Date/Time: 05/19/24 14:28 Surgeon: Melquiades Waller MD Pre Op Diagnosis: right ureteral stone Patient Data Age: 24 Gender: M Height: 1.68 m Weight: 113.6 kg Allergies Allergy/AdvReac Type Severity Reaction Status Date / Time cat dander Allergy Mild Sneezing/WH Verified 05/16/24 09:29 EEZING Home Medications ?Medication ?Instructions ?Recorded ?Confirmed ?Type cetirizine 10 mg tablet 10 mg PO QHS 10/31/19 05/16/24 History diazepam 20 mg/2 spray (10 mg/0.1 20 mg (0.2 mL) intranasal ONCE PRN 02/03/23 05/16/24 Rx mL x 2) nasal spray (Valtoco) seizure > 5 minutes #2 sprays sertraline 100 mg tablet 100 mg PO QHS #90 tabs 11/22/23 05/16/24 Rx levetiracetam 750 mg 1,500 mg (2 x 750 mg) PO DAILY 03/08/24 05/16/24 Rx tablet,extended release 24 hr #180 tabs (Keppra XR) zonisamide 100 mg capsule 300 mg (3 x 100 mg) PO DAILY #90 05/11/24 05/16/24 Rx caps cephalexin 500 mg capsule 500 mg PO Q6H 7 days #28 caps 05/12/24 05/16/24 Rx ondansetron 4 mg disintegrating 4 mg PO Q8H PRN nausea and 05/12/24 05/16/24 Rx tablet vomiting #15 tabs oxycodone 5 mg tablet 5 mg PO Q6H PRN pain #20 tabs 05/12/24 05/16/24 Rx tamsulosin 0.4 mg capsule (Flomax) 0.4 mg PO DAILY #10 caps 05/12/24 05/16/24 Rx cyanocobalamin (vitamin B-12) 500 500 mcg PO HS 05/16/24 05/16/24 History mcg tablet (Vitamin B-12) Patient hx anesthesia problems: none Family hx anesthesia problems: none Results Review: All pre-operative results and documents have been reviewed as part of the pre-operative evaluation. 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 Achilles tendinitis of left lower extremity Anxiety Depression BMI 40.0-44.9, adult History of asthma History of seizures Acne Seasonal allergies Seizure Surgical History Surgical History Hx laparoscopic cholecystectomy 04/16/20 [place] teeth extracted Family History Family History Father ADHD Mother ADHD Social History Social History Smoking status: Never smoker Second hand tobacco smoke exposure: No Alcohol intake: current Alcohol use details: rare Substance use: never Substance use type: does not use Do You Feel Safe in your Home?: Yes Lack of Transportation: No Lack of Food: Never True Current Housing: I Have Housing Concerned About Future Housing: No Difficulty Paying Gas/Electric Bills: No Difficulty Paying for Meds: No Currently Unemployed: No Education: Decline to Answer Difficulty w/ Childcare or Family Care: No Living arrangements: with family Gender identity (if verbalized by the patient): Male Spiritual care concerns: No Anes - Eval Final PreProcedure Day of Procedure 05/19/24 14:28 Patient weight: morbidly obese Heart: regular rate and rhythm Lungs: clear to auscultation Airway: Mallampati scale class II Neurological: alert and oriented Last oral intake: >/= 8 hours ASA classification: III Emergent: no Anesthetic plan: proceed Anesthesia type and monitoring: general LMA and standard monitoring Results Review: All pre-operative results and documents have been reviewed as part of the pre-operative evaluation. Informed Consent: The patient's anesthetic plan and its attendant risks and benefits were discussed with the patient/family/POA. Questions were solicited and answers provided to the satisfaction of the patient/family/POA.
[2024-05-19] MEDS: LACTATED RINGERS 1,000 ML 30 ML IV CONT ×2 (14:53→16:24)
[2024-05-19] MEDS: ceFAZolin 2 GM/D5W 50 ML 2 GM/50 ML BAG IVPB (15:31)
--- NOTE | 2024-05-19 16:04 | W.PM.PROC2 ---
Procedure Note - Detailed Date of Procedure 05/19/24 Pre-op Diagnosis Right ureteral stone Post-op Diagnosis Same Procedure Performed Cystoscopy, right ureteral stent removal, right ESWL Surgeon Melquiades Waller MD Anesthesia General Description of Procedure The patient was brought to the operative suite where he was placed in the supine position on the Dornier lithotripter table. Flexible cystoscopy was undertaken with a 16F flexible cystoscopy. There were no urethral strictures. The prostatic urethra estimated length was 1.0-1.5cm. There was no obstruction of the prostatic urethra with no median lobe enlargement. The bladder mucosa was normal and there was a single, orthotopic ureteral orifice bilaterally. The tip of the indwelling stent was grasped and the stent was removed with ease. The patient was then repositioned in the supine position with the focal point of the lithotriptor on a 5mm right mid-ureteral calculus. A total of 3000 shocks were delivered at a power setting of 1-6. There appeared to be good fragmentation of the stone. The patient tolerated the procedure well and was taken to the recovery room in good condition.
[2024-05-19] MEDS: oxyCODONE HCL (*CRX) 5 MG TAB IR PO (17:30)
== END 2024-05-19 18:07 | disposition home or self-care (01) ==
PROVIDERS: PCP Nurse Practitioner; Visit Provider Urology
PROC: (CPT 50590; principal; 2024-05-19 15:30)
PROC: (CPT 52352; 2024-05-19 15:30)
DX: N20.1 Calculus of ureter (principal); E66.01 Morbid (severe) obesity due to excess calories; Z68.41 Body mass index [BMI] 40.0-44.9, adult
CPT/HCPCS: 50590; 52310; 74018; A9270; C1769; J0690; J1100; J2250; J2405; J2704; J3010; J7030; J7120